=== PATIENT | male | born 1980 | race Caucasian/White ===

== ENCOUNTER 2023-08-22 19:09 | Inpatient (IN) | payer MEDICAID ==
[~2023-08-22] VITALS: Ht 177.8 cm; Wt 63.0 kg
[~2023-08-22 19:09] MED LIST: RISP1TAB13 PO; rocuronium 10mg/ml inj IV ONE
[2023-08-22] MEDS: propofol 1000mg/100ml bottle 100 ML IV ONE (19:26)
[2023-08-22 19:38] VITALS: BP 133/85; PULSE 132; RESP 16; O2SAT 98
[2023-08-22 20:32] LABS: BASOPHILS % (AUTO) 0.1 % (0-1); EOSINOPHILS % (AUTO) 0 % (0-6); HEMATOCRIT 40.8 % (42.0-52.0); HEMOGLOBIN 13.6 g/dl (14.0-17.9); LYMPHOCYTES # (AUTO) 0.6 X10'3 (1.1-4.8); MEAN CORPUSCULAR HEMOGLOBIN 30.7 PG (27.0-31.0); MEAN CORPUSCULAR HGB CONC 33.4 g/dL (33.0-36.5); MEAN CORPUSCULAR VOLUME 91.9 FL (78-98); MEAN PLATELET VOLUME 7.7 FL (7.4-10.4); MONOCYTES # (AUTO) 1.1 X10'3 (0-0.9); MONOCYTES % (AUTO) 5.5 % (2-12); NEUTROPHILS # (AUTO) 18.1 X10'3 (1.8-7.7); NEUTROPHILS % (AUTO) 91.4 % (42-75); PLATELET COUNT 315 X10'3 (140-440); RED BLOOD COUNT 4.44 X10'6 (4.70-6.10); RED CELL DISTRIBUTION WIDTH 14.1 % (11.5-14.5); WHITE BLOOD COUNT 19.8 X10'3 (4.5-11.0)
[2023-08-22 20:33] LABS: GASTRIC OCCULT BLOOD POSITIVE (Neg)
[2023-08-22 20:38] LABS: ABG BASE EXCESS 0.4 mmol/L (-2.0-2.0); ABG HCO3 29.3 mmol/L (22.0-26.0); ABG OXYGEN SATURATION 99.3 % (94-97); ABG PCO2 (T) 70.3 mmHg (35.0-48.0); ABG PH (T) 7.243 (7.340-7.440); ABG PO2 (T) 232.4 mmHg (75.0-100.0); ALLEN'S TEST Modified; FCOHb 2.3 % (0.0-3.9); FHHb 0.7 % (0.0-5.0); FMetHb 0.3 % (0.0-1.5); FO2Hb 96.7 % (94-97); MODE PRVC; PATIENT TEMPERATURE 38.1; PEEP 5 cm H2O; RESPIRATORY RATE 16 b/min; TIDAL VOLUME 450 mL; TOTAL HEMOGLOBIN 14.4 G/dl (14.0-17.9)
[2023-08-22] MEDS: LidoCAINE 2% Topical Jelly 11mL syringe (UROJET) TOP ONE ×2 (20:38→21:31)
[2023-08-22 20:43] VITALS: BP 112/79; PULSE 127; RESP 17; O2SAT 98
[2023-08-22] MEDS ORDERED: acetaminophen 325mg tablet PO PRN ×2 (20:45)
[2023-08-22] MEDS ORDERED: ondansetron/PF 4mg/2ml inj IV PRN (20:45)
[2023-08-22] MEDS: normal saline 1000ml 1,000 ML IV SCH (20:45)
[2023-08-22 20:53] LABS: ALBUMIN 2.3 G/DL (3.4-5.0); ANION GAP 4 (8-16); BLOOD UREA NITROGEN 18 MG/DL (7-18); BUN/CREATININE RATIO 16.5 (10.0-20.0); CALCIUM 8.2 MG/DL (8.5-10.1); CHLORIDE 92 MMOL/L (99-107); CREATININE 1.09 MG/DL (0.60-1.10); GLUCOSE 154 MG/DL (70-104); MAGNESIUM 1.8 MG/DL (1.5-2.4); POTASSIUM 5.2 MMOL/L (3.5-5.1); SODIUM 130 MMOL/L (135-145); TOTAL CARBON DIOXIDE 33.8 MMOL/L (24-32); eCRCL 73 ML/MIN; eGFR 73 ML/MIN
[2023-08-22] MEDS: pantoprazole 40MG/NS 100ML BAG 100 ML IV SCH (20:54)
[2023-08-22] MEDS: LIDOcaine 2% 10ml TOPICAL JELLY (Urojet) TP ONE (21:04)
[2023-08-22 21:12] LABS: PLATELET ESTIMATE NORMAL; TOTAL CELLS COUNTED 100
[2023-08-22] MEDS ORDERED: iohexol 300mg/ml 100ml inj. ONE (21:38)
[2023-08-22 21:49] LABS: BILIRUBIN,URINE NEGATIVE (Neg); CLARITY,URINE CLEAR (Clear); COLOR,URINE YELLOW (Yellow); GLUCOSE, URINE NEGATIVE (Neg); KETONES,URINE NEGATIVE (Neg); LEUKOCYTE ESTERASE ,URINE NEGATIVE (Neg); NITRITES, URINE NEGATIVE (Neg); OCCULT BLOOD,URINE TRACE-INTACT (Neg); PROTEIN,URINE 30 mg/dl (Neg)
[2023-08-22 21:57] LABS: URINE AMPHETAMINE SCREEN NEGATIVE (Neg); URINE BARBITUATE SCREEN NEGATIVE (Neg); URINE BENZODIAZEPINES SCREEN NEGATIVE (Neg); URINE CANNABINOID SCREEN NEGATIVE (Neg); URINE COCAINE SCREEN NEGATIVE (Neg); URINE METHADONE SCREEN NEGATIVE (Neg); URINE OPIATE SCREEN NEGATIVE (Neg); URINE PHENCYCLIDINE SCREEN NEGATIVE (Neg)
[2023-08-22 22:01] LABS: UA COLLECTION TYPE FOLEY CATH
[2023-08-22 22:03] LABS: FINE GRANULAR CAST 0-3 /LPF (NEGATIVE)
[2023-08-22 22:04] LABS: HYALINE CASTS 0-3 /LPF (NEGATIVE)
[2023-08-22 22:05] LABS: RBC,URINE 0-2 /HPF (0-2); WBC,URINE 0-4 /HPF (0-4)
[2023-08-22] MEDS: FENTANYL-0.9 % NACL/PF 100 ML IV SCH (22:05)
[2023-08-22 22:08] LABS: BACTERIA,URINE NONE SEEN /HPF (Neg)
[2023-08-22 22:09] LABS: MUCUS STRANDS NONE SEEN /LPF (Neg); SQUAMOUS EPITHELIAL CELL,UR FEW /LPF (FEW); TRANSITIONAL EPI CELLS,URINE FEW /HPF
[2023-08-22] MEDS: pantoprazole 40 MG vial IV SCH (22:12)
[2023-08-22] MEDS: fentaNYL/PF 50MCG/1 ML 2ML syringe ONE (22:13)
[2023-08-22 23:28] VITALS: BP 120/83; PULSE 116; RESP 21; O2SAT 100
[2023-08-23] VITALS (35 sets, daily range): BP systolic 71–127; BP diastolic 41–87; PULSE 74–112; RESP 17–22; O2SAT 89–98
[2023-08-23] MEDS: fentaNYL/PF 50MCG/1 ML 2ML syringe ONE (03:52)
[2023-08-23] MEDS ORDERED: ondansetron/PF 4mg/2ml inj IV PRN (04:30)
[2023-08-23] MEDS ORDERED: acetaminophen 325mg tablet PO PRN ×2 (04:30)
[2023-08-23] MEDS ORDERED: ipratropium/albuterol 3ml nebule NEB PRN (04:30)
[2023-08-23] MEDS: NORepinephrine 8mg/ 250ml NS 250 ML IV ONE (04:32)
[2023-08-23 04:58] LABS: OXYGEN SATURATION (MIXED VEN) 80.1 % (60-80)
[2023-08-23] MEDS: LidoCAINE 2% Topical Jelly 11mL syringe (UROJET) TOP ONE (04:58)
[2023-08-23 05:12] LABS: ABG BASE EXCESS 0.4 mmol/L (-2.0-2.0); ABG HCO3 28.7 mmol/L (22.0-26.0); ABG OXYGEN SATURATION 92.3 % (94-97); ABG PCO2 (T) 63.1 mmHg (35.0-48.0); ABG PH (T) 7.274 (7.340-7.440); ABG PO2 (T) 68.8 mmHg (75.0-100.0); ALLEN'S TEST Modified; FCOHb 1.1 % (0.0-3.9); FHHb 7.6 % (0.0-5.0); FMetHb 0.3 % (0.0-1.5); MODE CMV VC; PATIENT TEMPERATURE 36.7; PEEP 5 cm H2O; RESPIRATORY RATE 18 b/min; TIDAL VOLUME 400 mL; TOTAL HEMOGLOBIN 12.8 G/dl (14.0-17.9)
[2023-08-23 05:42] LABS: BASOPHILS % (AUTO) 0.1 % (0-1); EOSINOPHILS % (AUTO) 0 % (0-6); HEMATOCRIT 34.9 % (42.0-52.0); HEMOGLOBIN 11.5 g/dl (14.0-17.9); LYMPHOCYTES # (AUTO) 0.5 X10'3 (1.1-4.8); LYMPHOCYTES % (AUTO) 2.6 % (21-51); MEAN CORPUSCULAR HEMOGLOBIN 30.5 PG (27.0-31.0); MEAN CORPUSCULAR HGB CONC 32.9 g/dL (33.0-36.5); MEAN CORPUSCULAR VOLUME 92.9 FL (78-98); MONOCYTES # (AUTO) 0.7 X10'3 (0-0.9); MONOCYTES % (AUTO) 3.6 % (2-12); NEUTROPHILS # (AUTO) 18.3 X10'3 (1.8-7.7); NEUTROPHILS % (AUTO) 93.7 % (42-75); PLATELET COUNT 297 X10'3 (140-440); RED BLOOD COUNT 3.75 X10'6 (4.70-6.10); RED CELL DISTRIBUTION WIDTH 14.4 % (11.5-14.5); WHITE BLOOD COUNT 19.5 X10'3 (4.5-11.0)
[2023-08-23] MEDS: ringers solution, lacted 1,000 ML IV ONE (05:48)
[2023-08-23] MEDS: NORepinephrine 8mg/ 250ml NS 250 ML IV SCH (05:49)
[2023-08-23 05:51] LABS: ALBUMIN 1.8 G/DL (3.4-5.0); ANION GAP 4 (8-16); BLOOD UREA NITROGEN 16 MG/DL (7-18); CHLORIDE 101 MMOL/L (99-107); CREATININE 0.84 MG/DL (0.60-1.10); GLUCOSE 103 MG/DL (70-104); POTASSIUM 4.7 MMOL/L (3.5-5.1); SODIUM 136 MMOL/L (135-145); TOTAL CARBON DIOXIDE 31.1 MMOL/L (24-32); eCRCL 94 ML/MIN; eGFR > 90 ML/MIN
[2023-08-23 06:16] LABS: MAGNESIUM 1.8 MG/DL (1.5-2.4); PHOSPHORUS 3.6 MG/DL (2.3-4.5)
[2023-08-23 07:03] LABS: TOTAL CELLS COUNTED 100
[2023-08-23 07:04] LABS: BURR CELLS FEW; PLATELET ESTIMATE NORMAL; POLYCHROMASIA FEW; TOXIC GRANULATION 1+
[2023-08-23] MEDS ORDERED: RISP-31 PO (07:42)
[2023-08-23] MEDS ORDERED: ESCI20TA39 PO (07:42)
[2023-08-23] MEDS ORDERED: BUPR-297 PO ×2 (07:42→13:01)
[2023-08-23] MEDS ORDERED: TRAZ-251 PO (07:42)
[2023-08-23] MEDS ORDERED: BENZ1TAB78 PO (07:42)
[2023-08-23] MEDS: heparin, porcine 5000 units/ml vial SQ SCH (07:59)
[2023-08-23] MEDS ORDERED: ESCI20TA PO (13:01)
[2023-08-23] MEDS ORDERED: BENZ1TAB93 PO (13:01)
[2023-08-23] MEDS: levoFLOXACIN-Levaquin 750MG/D5 150 ML IV STA (15:54)
[2023-08-23] MEDS: propofol 1000mg/100ml bottle 100 ML IV SCH (19:05)
[2023-08-24] VITALS (37 sets, daily range): BP systolic 86–131; BP diastolic 51–73; PULSE 8–89; RESP 18–22; O2SAT 90–97
[2023-08-24 02:37] LABS: BASOPHILS # (AUTO) 0.1 X10'3 (0-0.2); BASOPHILS % (AUTO) 0.3 % (0-1); EOSINOPHILS % (AUTO) 0.1 % (0-6); HEMATOCRIT 32.8 % (42.0-52.0); HEMOGLOBIN 10.8 g/dl (14.0-17.9); LYMPHOCYTES # (AUTO) 0.8 X10'3 (1.1-4.8); LYMPHOCYTES % (AUTO) 3.6 % (21-51); MEAN CORPUSCULAR HEMOGLOBIN 30.7 PG (27.0-31.0); MEAN CORPUSCULAR VOLUME 93.2 FL (78-98); MEAN PLATELET VOLUME 7.3 FL (7.4-10.4); MONOCYTES # (AUTO) 0.8 X10'3 (0-0.9); MONOCYTES % (AUTO) 3.9 % (2-12); NEUTROPHILS # (AUTO) 19.1 X10'3 (1.8-7.7); NEUTROPHILS % (AUTO) 92.1 % (42-75); PLATELET COUNT 269 X10'3 (140-440); RED BLOOD COUNT 3.52 X10'6 (4.70-6.10); RED CELL DISTRIBUTION WIDTH 14.7 % (11.5-14.5); WHITE BLOOD COUNT 20.7 X10'3 (4.5-11.0)
[2023-08-24 02:51] LABS: ALBUMIN 1.5 G/DL (3.4-5.0); ANION GAP 5 (8-16); BLOOD UREA NITROGEN 15 MG/DL (7-18); BUN/CREATININE RATIO 18.3 (10.0-20.0); CALCIUM 7.6 MG/DL (8.5-10.1); CHLORIDE 104 MMOL/L (99-107); CREATININE 0.82 MG/DL (0.60-1.10); GLUCOSE 99 MG/DL (70-104); PHOSPHORUS 2.5 MG/DL (2.3-4.5); POTASSIUM 4.9 MMOL/L (3.5-5.1); SODIUM 138 MMOL/L (135-145); TOTAL CARBON DIOXIDE 28.8 MMOL/L (24-32); TRIGLYCERIDES 64 MG/DL (20-135); eCRCL 79 ML/MIN; eGFR > 90 ML/MIN
[2023-08-24 03:26] LABS: ABG BASE EXCESS 1.1 mmol/L (-2.0-2.0); ABG HCO3 27.9 mmol/L (22.0-26.0); ABG OXYGEN SATURATION 96.4 % (94-97); ABG PCO2 (T) 55.9 mmHg (35.0-48.0); ABG PH (T) 7.319 (7.340-7.440); ALLEN'S TEST Modified; FCOHb 0.7 % (0.0-3.9); FHHb 3.6 % (0.0-5.0); FMetHb 0.3 % (0.0-1.5); FO2Hb 95.4 % (94-97); MODE VENT - AC; PATIENT TEMPERATURE 37.5; PEEP 8 cm H2O; RESPIRATORY RATE 18 b/min; TIDAL VOLUME 500 mL; TOTAL HEMOGLOBIN 12.2 G/dl (14.0-17.9)
[2023-08-24] MEDS: levoFLOXACIN-Levaquin 750MG/D5 150 ML IV SCH (07:35)
[2023-08-24] MEDS: CefTRIAXone/D5W-Rocephin 1gm 50 ML IV SCH (07:35)
[2023-08-25] VITALS (38 sets, daily range): BP systolic 85–123; BP diastolic 55–92; PULSE 65–96; RESP 12–24; O2SAT 90–97
[2023-08-25 02:47] LABS: BASOPHILS # (AUTO) 0.2 X10'3 (0-0.2); BASOPHILS % (AUTO) 0.9 % (0-1); EOSINOPHILS % (AUTO) 0.2 % (0-6); HEMOGLOBIN 10.4 g/dl (14.0-17.9); LYMPHOCYTES # (AUTO) 0.7 X10'3 (1.1-4.8); LYMPHOCYTES % (AUTO) 3.7 % (21-51); MEAN CORPUSCULAR HEMOGLOBIN 30.4 PG (27.0-31.0); MEAN CORPUSCULAR HGB CONC 32.5 g/dL (33.0-36.5); MEAN CORPUSCULAR VOLUME 93.4 FL (78-98); MEAN PLATELET VOLUME 7.8 FL (7.4-10.4); MONOCYTES # (AUTO) 0.8 X10'3 (0-0.9); MONOCYTES % (AUTO) 4.2 % (2-12); NEUTROPHILS # (AUTO) 17.5 X10'3 (1.8-7.7); PLATELET COUNT 271 X10'3 (140-440); RED BLOOD COUNT 3.42 X10'6 (4.70-6.10); RED CELL DISTRIBUTION WIDTH 14.9 % (11.5-14.5); WHITE BLOOD COUNT 19.3 X10'3 (4.5-11.0)
[2023-08-25 02:55] LABS: ALBUMIN 1.4 G/DL (3.4-5.0); ANION GAP 5 (8-16); BLOOD UREA NITROGEN 16 MG/DL (7-18); BUN/CREATININE RATIO 22.2 (10.0-20.0); CALCIUM 7.8 MG/DL (8.5-10.1); CHLORIDE 107 MMOL/L (99-107); CREATININE 0.72 MG/DL (0.60-1.10); GLUCOSE 93 MG/DL (70-104); POTASSIUM 4.6 MMOL/L (3.5-5.1); SODIUM 142 MMOL/L (135-145); TOTAL CARBON DIOXIDE 29.9 MMOL/L (24-32); eCRCL 90 ML/MIN; eGFR > 90 ML/MIN
[2023-08-25 03:16] LABS: ABG BASE EXCESS -2.1 mmol/L (-2.0-2.0); ABG HCO3 23.5 mmol/L (22.0-26.0); ABG OXYGEN SATURATION 95.2 % (94-97); ABG PCO2 (T) 44.5 mmHg (35.0-48.0); ABG PH (T) 7.343 (7.340-7.440); ALLEN'S TEST Modified; FCOHb 0.6 % (0.0-3.9); FHHb 4.8 % (0.0-5.0); FMetHb 0.3 % (0.0-1.5); FO2Hb 94.3 % (94-97); MODE VENT - AC; PATIENT TEMPERATURE 37.4; PEEP 5 cm H2O; RESPIRATORY RATE 20 b/min; TIDAL VOLUME 500 mL; TOTAL HEMOGLOBIN 11.5 G/dl (14.0-17.9)
[2023-08-25] MEDS ORDERED: acetaminophen 325mg/10.15ml oral unit dose solution OGT PRN ×2 (12:37→12:38)
[2023-08-25 13:52] LABS: PREALBUMIN 2.5 MG/DL (19-36)
[2023-08-25] MEDS: ipratropium/albuterol 3ml nebule NEB SCH (19:35)
[2023-08-25] MEDS: docusate sodium 100mg/10ml UD cup OGT SCH (20:43)
[2023-08-25] MEDS: pantoprazole 40 MG vial IV SCH (20:43)
[2023-08-26] VITALS (48 sets, daily range): BP systolic 87–138; BP diastolic 52–85; PULSE 67–93; RESP 12–25; O2SAT 90–99
[2023-08-26 02:33] LABS: BASOPHILS % (AUTO) 0.2 % (0-1); EOSINOPHILS # (AUTO) 0.1 X10'3 (0-0.9); EOSINOPHILS % (AUTO) 0.7 % (0-6); HEMATOCRIT 30.5 % (42.0-52.0); HEMOGLOBIN 10.1 g/dl (14.0-17.9); LYMPHOCYTES % (AUTO) 9.1 % (21-51); MEAN CORPUSCULAR HEMOGLOBIN 30.9 PG (27.0-31.0); MEAN CORPUSCULAR VOLUME 93.5 FL (78-98); MEAN PLATELET VOLUME 7.5 FL (7.4-10.4); MONOCYTES # (AUTO) 0.9 X10'3 (0-0.9); MONOCYTES % (AUTO) 7.9 % (2-12); NEUTROPHILS # (AUTO) 9.3 X10'3 (1.8-7.7); NEUTROPHILS % (AUTO) 82.1 % (42-75); PLATELET COUNT 254 X10'3 (140-440); RED BLOOD COUNT 3.26 X10'6 (4.70-6.10); WHITE BLOOD COUNT 11.4 X10'3 (4.5-11.0)
[2023-08-26 02:46] LABS: ALANINE AMINOTRANSFERASE 12 U/L (12-78); ALBUMIN 1.4 G/DL (3.4-5.0); ALBUMIN/GLOBULIN RATIO 0.3 (1.1-1.5); ALKALINE PHOSPHATASE 126 IU/L (46-116); ANION GAP 4 (8-16); ASPARTATE AMINO TRANSFERASE 14 U/L (10-37); BILIRUBIN,TOTAL 0.2 MG/DL (0.1-1.0); BLOOD UREA NITROGEN 15 MG/DL (7-18); BUN/CREATININE RATIO 20.8 (10.0-20.0); CALCIUM 7.8 MG/DL (8.5-10.1); CHLORIDE 111 MMOL/L (99-107); CREATININE 0.72 MG/DL (0.60-1.10); GLUCOSE 137 MG/DL (70-104); MAGNESIUM 2.1 MG/DL (1.5-2.4); PHOSPHORUS 2.4 MG/DL (2.3-4.5); POTASSIUM 4.1 MMOL/L (3.5-5.1); SODIUM 145 MMOL/L (135-145); TOTAL CARBON DIOXIDE 30.4 MMOL/L (24-32); TOTAL PROTEIN 5.5 G/DL (6.4-8.2); eCRCL 123 ML/MIN; eGFR > 90 ML/MIN
[2023-08-26] MEDS: acetylcysteine 200 MG/ml 4ml vial INH SCH (03:00)
[2023-08-26 03:31] LABS: ABG BASE EXCESS 1.8 mmol/L (-2.0-2.0); ABG HCO3 28.1 mmol/L (22.0-26.0); ABG PCO2 (T) 52.9 mmHg (35.0-48.0); ABG PH (T) 7.345 (7.340-7.440); ABG PO2 (T) 64.5 mmHg (75.0-100.0); ALLEN'S TEST Modified; FCOHb 0.5 % (0.0-3.9); FHHb 7.9 % (0.0-5.0); FMetHb 0.3 % (0.0-1.5); FO2Hb 91.3 % (94-97); MODE VENT - AC; PATIENT TEMPERATURE 37.2; PEEP 5 cm H2O; RESPIRATORY RATE 20 b/min; TIDAL VOLUME 500 mL
[2023-08-26] MEDS: albuterol 2.5 MG/3 ML nebule NEB SCH (23:32)
[2023-08-27] VITALS (48 sets, daily range): BP systolic 110–145; BP diastolic 71–92; PULSE 79–98; RESP 11–28; O2SAT 91–97
[2023-08-27 02:23] LABS: BASOPHILS % (AUTO) 0.2 % (0-1); EOSINOPHILS # (AUTO) 0.1 X10'3 (0-0.9); EOSINOPHILS % (AUTO) 1.2 % (0-6); HEMATOCRIT 29.9 % (42.0-52.0); HEMOGLOBIN 9.8 g/dl (14.0-17.9); LYMPHOCYTES # (AUTO) 0.9 X10'3 (1.1-4.8); LYMPHOCYTES % (AUTO) 8.6 % (21-51); MEAN CORPUSCULAR HEMOGLOBIN 30.5 PG (27.0-31.0); MEAN CORPUSCULAR HGB CONC 32.8 g/dL (33.0-36.5); MEAN CORPUSCULAR VOLUME 92.9 FL (78-98); MONOCYTES % (AUTO) 9.2 % (2-12); NEUTROPHILS # (AUTO) 8.8 X10'3 (1.8-7.7); NEUTROPHILS % (AUTO) 80.8 % (42-75); PLATELET COUNT 229 X10'3 (140-440); RED BLOOD COUNT 3.22 X10'6 (4.70-6.10); RED CELL DISTRIBUTION WIDTH 15.2 % (11.5-14.5); WHITE BLOOD COUNT 10.9 X10'3 (4.5-11.0)
[2023-08-27 02:34] LABS: ALANINE AMINOTRANSFERASE 11 U/L (12-78); ALBUMIN 1.2 G/DL (3.4-5.0); ALBUMIN/GLOBULIN RATIO 0.3 (1.1-1.5); ALKALINE PHOSPHATASE 56 IU/L (46-116); ANION GAP 6 (8-16); ASPARTATE AMINO TRANSFERASE 14 U/L (10-37); BILIRUBIN,TOTAL 0.2 MG/DL (0.1-1.0); BLOOD UREA NITROGEN 13 MG/DL (7-18); BUN/CREATININE RATIO 21.7 (10.0-20.0); CALCIUM 7.8 MG/DL (8.5-10.1); CHLORIDE 112 MMOL/L (99-107); GLUCOSE 130 MG/DL (70-104); MAGNESIUM 1.8 MG/DL (1.5-2.4); PHOSPHORUS 2.9 MG/DL (2.3-4.5); POTASSIUM 3.8 MMOL/L (3.5-5.1); SODIUM 149 MMOL/L (135-145); TOTAL CARBON DIOXIDE 31.3 MMOL/L (24-32); TOTAL PROTEIN 5.4 G/DL (6.4-8.2); eCRCL 154 ML/MIN; eGFR > 90 ML/MIN
[2023-08-27 03:27] LABS: ABG BASE EXCESS 4.3 mmol/L (-2.0-2.0); ABG HCO3 29.9 mmol/L (22.0-26.0); ABG OXYGEN SATURATION 93.8 % (94-97); ABG PCO2 (T) 50.7 mmHg (35.0-48.0); ABG PH (T) 7.391 (7.340-7.440); ABG PO2 (T) 69.2 mmHg (75.0-100.0); ALLEN'S TEST Modified; FCOHb 0.5 % (0.0-3.9); FHHb 6.2 % (0.0-5.0); FMetHb 0.3 % (0.0-1.5); MODE VENT - AC; PATIENT TEMPERATURE 37.7; PEEP 5 cm H2O; RESPIRATORY RATE 20 b/min; TIDAL VOLUME 500 mL; TOTAL HEMOGLOBIN 10.7 G/dl (14.0-17.9)
[2023-08-27] MEDS: acetylcysteine 200 MG/ml 4ml vial INH SCH (07:30)
[2023-08-27] MEDS ORDERED: albuterol 2.5 MG/3 ML nebule NEB SCH ×2 (23:00→23:11)
[2023-08-28] VITALS (41 sets, daily range): BP systolic 101–174; BP diastolic 62–102; PULSE 72–106; RESP 14–34; O2SAT 88–98
[2023-08-28 01:41] LABS: BASOPHILS % (AUTO) 0.3 % (0-1); EOSINOPHILS # (AUTO) 0.2 X10'3 (0-0.9); EOSINOPHILS % (AUTO) 1.7 % (0-6); HEMATOCRIT 29.1 % (42.0-52.0); HEMOGLOBIN 9.8 g/dl (14.0-17.9); LYMPHOCYTES # (AUTO) 1.2 X10'3 (1.1-4.8); LYMPHOCYTES % (AUTO) 12.2 % (21-51); MEAN CORPUSCULAR HEMOGLOBIN 31.1 PG (27.0-31.0); MEAN CORPUSCULAR HGB CONC 33.5 g/dL (33.0-36.5); MEAN CORPUSCULAR VOLUME 92.6 FL (78-98); MEAN PLATELET VOLUME 7.7 FL (7.4-10.4); MONOCYTES # (AUTO) 0.6 X10'3 (0-0.9); MONOCYTES % (AUTO) 6.3 % (2-12); NEUTROPHILS # (AUTO) 7.8 X10'3 (1.8-7.7); NEUTROPHILS % (AUTO) 79.5 % (42-75); PLATELET COUNT 234 X10'3 (140-440); RED BLOOD COUNT 3.15 X10'6 (4.70-6.10); RED CELL DISTRIBUTION WIDTH 15.2 % (11.5-14.5); WHITE BLOOD COUNT 9.8 X10'3 (4.5-11.0)
[2023-08-28 01:57] LABS: ALANINE AMINOTRANSFERASE 10 U/L (12-78); ALBUMIN 1.2 G/DL (3.4-5.0); ALBUMIN/GLOBULIN RATIO 0.3 (1.1-1.5); ALKALINE PHOSPHATASE 52 IU/L (46-116); ANION GAP -3 (8-16); ASPARTATE AMINO TRANSFERASE 15 U/L (10-37); BILIRUBIN,TOTAL 0.3 MG/DL (0.1-1.0); BLOOD UREA NITROGEN 14 MG/DL (7-18); BUN/CREATININE RATIO 27.5 (10.0-20.0); CALCIUM 7.7 MG/DL (8.5-10.1); CHLORIDE 111 MMOL/L (99-107); CREATININE 0.51 MG/DL (0.60-1.10); GLUCOSE 118 MG/DL (70-104); MAGNESIUM 1.7 MG/DL (1.5-2.4); PHOSPHORUS 4.1 MG/DL (2.3-4.5); POTASSIUM 3.7 MMOL/L (3.5-5.1); PREALBUMIN 5.2 MG/DL (19-36); SODIUM 148 MMOL/L (135-145); TOTAL CARBON DIOXIDE 39.5 MMOL/L (24-32); TOTAL PROTEIN 5.2 G/DL (6.4-8.2); eCRCL 180 ML/MIN; eGFR > 90 ML/MIN
[2023-08-28 03:54] LABS: ABG BASE EXCESS 5.9 mmol/L (-2.0-2.0); ABG OXYGEN SATURATION 92.6 % (94-97); ABG PCO2 (T) 55.9 mmHg (35.0-48.0); ABG PH (T) 7.378 (7.340-7.440); ABG PO2 (T) 64.6 mmHg (75.0-100.0); ALLEN'S TEST Modified; FCOHb 0.6 % (0.0-3.9); FHHb 7.3 % (0.0-5.0); FMetHb 0.3 % (0.0-1.5); FO2Hb 91.8 % (94-97); MODE AC/VC; PATIENT TEMPERATURE 37.4; PEEP 5 cm H2O; RESPIRATORY RATE 20 b/min; TIDAL VOLUME 500 mL; TOTAL HEMOGLOBIN 10.3 G/dl (14.0-17.9)
[2023-08-28] MEDS ORDERED: traZODone 50mg tablet PO PRN (17:25)
[2023-08-28] MEDS: risperiDONE 0.5mg tablet PO SCH (21:42)
[2023-08-29] VITALS (36 sets, daily range): BP systolic 130–183; BP diastolic 81–102; PULSE 80–108; RESP 16–33; O2SAT 88–98
[2023-08-29 02:32] LABS: BASOPHILS # (AUTO) 0.1 X10'3 (0-0.2); BASOPHILS % (AUTO) 0.7 % (0-1); EOSINOPHILS # (AUTO) 0.1 X10'3 (0-0.9); EOSINOPHILS % (AUTO) 0.8 % (0-6); HEMATOCRIT 33.3 % (42.0-52.0); HEMOGLOBIN 10.9 g/dl (14.0-17.9); LYMPHOCYTES # (AUTO) 1.4 X10'3 (1.1-4.8); LYMPHOCYTES % (AUTO) 13.2 % (21-51); MEAN CORPUSCULAR HEMOGLOBIN 30.3 PG (27.0-31.0); MEAN CORPUSCULAR HGB CONC 32.7 g/dL (33.0-36.5); MEAN CORPUSCULAR VOLUME 92.7 FL (78-98); MEAN PLATELET VOLUME 8.2 FL (7.4-10.4); MONOCYTES # (AUTO) 0.7 X10'3 (0-0.9); MONOCYTES % (AUTO) 6.5 % (2-12); NEUTROPHILS # (AUTO) 8.4 X10'3 (1.8-7.7); NEUTROPHILS % (AUTO) 78.8 % (42-75); PLATELET COUNT 317 X10'3 (140-440); RED BLOOD COUNT 3.59 X10'6 (4.70-6.10); RED CELL DISTRIBUTION WIDTH 14.9 % (11.5-14.5); WHITE BLOOD COUNT 10.7 X10'3 (4.5-11.0)
[2023-08-29 02:48] LABS: ALANINE AMINOTRANSFERASE 16 U/L (12-78); ALBUMIN 1.5 G/DL (3.4-5.0); ALBUMIN/GLOBULIN RATIO 0.3 (1.1-1.5); ALKALINE PHOSPHATASE 79 IU/L (46-116); ANION GAP 4 (8-16); ASPARTATE AMINO TRANSFERASE 33 U/L (10-37); BILIRUBIN,TOTAL 0.5 MG/DL (0.1-1.0); BLOOD UREA NITROGEN 12 MG/DL (7-18); BUN/CREATININE RATIO 20.7 (10.0-20.0); CALCIUM 8.6 MG/DL (8.5-10.1); CHLORIDE 104 MMOL/L (99-107); CREATININE 0.58 MG/DL (0.60-1.10); GLUCOSE 89 MG/DL (70-104); MAGNESIUM 1.9 MG/DL (1.5-2.4); PHOSPHORUS 4.6 MG/DL (2.3-4.5); POTASSIUM 3.9 MMOL/L (3.5-5.1); SODIUM 146 MMOL/L (135-145); TOTAL CARBON DIOXIDE 38.3 MMOL/L (24-32); TOTAL PROTEIN 6.2 G/DL (6.4-8.2); eCRCL 159 ML/MIN; eGFR > 90 ML/MIN
[2023-08-29] MEDS: buPROPion 75mg tablet PO SCH (07:07)
[2023-08-29] MEDS: acetaminophen 325mg tablet PO PRN (07:08)
[2023-08-29] MEDS: benztropine 1mg tablet PO SCH (07:08)
[2023-08-29] MEDS: ESCITALOPRAM 10 mg tablet 10 MG TABLET PO SCH (07:09)
[2023-08-29] MEDS: magnesium hydroxide 30ml (MOM) UD suspension OGT PRN (07:21)
[2023-08-29] MEDS ORDERED: acetaminophen 325mg/10.15ml oral unit dose solution CORPAK PRN ×3 (10:59→15:24)
[2023-08-29] MEDS ORDERED: magnesium hydroxide 30ml (MOM) UD suspension CORPAK PRN (10:59)
[2023-08-29] MEDS: sodium chloride 0.45% 1,000 ML IV SCH (12:14)
[2023-08-29] MEDS: risperiDONE 0.5mg tablet CORPAK SCH (17:41)
[2023-08-29] MEDS: sennosides 8.6mg tablet CORPAK SCH (21:00)
[2023-08-29] MEDS: docusate sodium 100mg/10ml UD cup CORPAK SCH (21:03)
[2023-08-30] VITALS (33 sets, daily range): BP systolic 112–151; BP diastolic 74–103; PULSE 92–117; RESP 14–25; TEMP 98.4–98.6; O2SAT 83–97
[2023-08-30] MEDS: ESCITALOPRAM 10 mg tablet 10 MG TABLET CORPAK SCH (08:21)
[2023-08-30] MEDS: benztropine 1mg tablet CORPAK SCH (08:22)
[2023-08-30] MEDS: buPROPion 75mg tablet CORPAK SCH (08:22)
[2023-08-30] MEDS: traZODone 50mg tablet CORPAK PRN (20:07)
[2023-08-31] VITALS (19 sets, daily range): BP systolic 113–136; BP diastolic 71–86; PULSE 88–115; RESP 14–22; TEMP 97.5–99.8; O2SAT 92–97
[2023-08-31 06:49] LABS: BASOPHILS # (AUTO) 0.1 X10'3 (0-0.2); BASOPHILS % (AUTO) 0.7 % (0-1); EOSINOPHILS # (AUTO) 0.3 X10'3 (0-0.9); EOSINOPHILS % (AUTO) 3.5 % (0-6); HEMATOCRIT 33.9 % (42.0-52.0); HEMOGLOBIN 11.3 g/dl (14.0-17.9); LYMPHOCYTES # (AUTO) 1.4 X10'3 (1.1-4.8); LYMPHOCYTES % (AUTO) 17.2 % (21-51); MEAN CORPUSCULAR HEMOGLOBIN 30.8 PG (27.0-31.0); MEAN CORPUSCULAR HGB CONC 33.2 g/dL (33.0-36.5); MEAN CORPUSCULAR VOLUME 92.8 FL (78-98); MEAN PLATELET VOLUME 9.3 FL (7.4-10.4); MONOCYTES # (AUTO) 0.3 X10'3 (0-0.9); NEUTROPHILS # (AUTO) 6.3 X10'3 (1.8-7.7); NEUTROPHILS % (AUTO) 74.6 % (42-75); PLATELET COUNT 261 X10'3 (140-440); RED BLOOD COUNT 3.66 X10'6 (4.70-6.10); RED CELL DISTRIBUTION WIDTH 14.8 % (11.5-14.5); WHITE BLOOD COUNT 8.4 X10'3 (4.5-11.0)
[2023-08-31 07:07] LABS: ALANINE AMINOTRANSFERASE 21 U/L (12-78); ALBUMIN 1.5 G/DL (3.4-5.0); ALBUMIN/GLOBULIN RATIO 0.3 (1.1-1.5); ALKALINE PHOSPHATASE 58 IU/L (46-116); ANION GAP 0 (8-16); ASPARTATE AMINO TRANSFERASE 34 U/L (10-37); BILIRUBIN,TOTAL 0.3 MG/DL (0.1-1.0); BLOOD UREA NITROGEN 20 MG/DL (7-18); BUN/CREATININE RATIO 35.7 (10.0-20.0); CALCIUM 8.4 MG/DL (8.5-10.1); CHLORIDE 105 MMOL/L (99-107); CREATININE 0.56 MG/DL (0.60-1.10); GLUCOSE 109 MG/DL (70-104); MAGNESIUM 2.2 MG/DL (1.5-2.4); PHOSPHORUS 4.2 MG/DL (2.3-4.5); POTASSIUM 3.9 MMOL/L (3.5-5.1); SODIUM 143 MMOL/L (135-145); TOTAL CARBON DIOXIDE 38.1 MMOL/L (24-32); TOTAL PROTEIN 6.4 G/DL (6.4-8.2); TRIGLYCERIDES 73 MG/DL (20-135); eCRCL 148 ML/MIN; eGFR > 90 ML/MIN
[2023-08-31 09:09] LABS: PLATELET ESTIMATE NORMAL; TOTAL CELLS COUNTED 100
[2023-08-31] MEDS ORDERED: albuterol 2.5 MG/3 ML nebule NEB PRN (17:05)
[2023-08-31] MEDS: methylPREDNISolone sod succ 125mg/2ml vial IV ONE (17:25)
[2023-08-31] MEDS: ipratropium/albuterol 3ml nebule NEB SCH (19:51)
[2023-08-31] MEDS: budesonide 0.5mg/2ml UD nebule IH SCH (19:51)
[2023-09-01] VITALS (19 sets, daily range): BP systolic 81–126; BP diastolic 48–78; PULSE 76–101; RESP 13–22; TEMP 97.1–98.7; O2SAT 92–98
[2023-09-01 06:42] LABS: BASOPHILS % (AUTO) 0.2 % (0-1); EOSINOPHILS % (AUTO) 0.1 % (0-6); HEMATOCRIT 34.6 % (42.0-52.0); HEMOGLOBIN 11.2 g/dl (14.0-17.9); LYMPHOCYTES # (AUTO) 1.3 X10'3 (1.1-4.8); LYMPHOCYTES % (AUTO) 11.2 % (21-51); MEAN CORPUSCULAR HEMOGLOBIN 30.2 PG (27.0-31.0); MEAN CORPUSCULAR HGB CONC 32.5 g/dL (33.0-36.5); MEAN CORPUSCULAR VOLUME 92.8 FL (78-98); MEAN PLATELET VOLUME 8.3 FL (7.4-10.4); MONOCYTES # (AUTO) 0.4 X10'3 (0-0.9); MONOCYTES % (AUTO) 3.6 % (2-12); NEUTROPHILS # (AUTO) 9.6 X10'3 (1.8-7.7); NEUTROPHILS % (AUTO) 84.9 % (42-75); PLATELET COUNT 415 X10'3 (140-440); RED BLOOD COUNT 3.73 X10'6 (4.70-6.10); RED CELL DISTRIBUTION WIDTH 14.8 % (11.5-14.5); WHITE BLOOD COUNT 11.3 X10'3 (4.5-11.0)
[2023-09-01 07:02] LABS: ALANINE AMINOTRANSFERASE 32 U/L (12-78); ALBUMIN/GLOBULIN RATIO 0.4 (1.1-1.5); ALKALINE PHOSPHATASE 65 IU/L (46-116); ANION GAP 4 (8-16); ASPARTATE AMINO TRANSFERASE 44 U/L (10-37); BILIRUBIN,TOTAL 0.2 MG/DL (0.1-1.0); BLOOD UREA NITROGEN 22 MG/DL (7-18); BUN/CREATININE RATIO 34.9 (10.0-20.0); CALCIUM 8.6 MG/DL (8.5-10.1); CHLORIDE 103 MMOL/L (99-107); CREATININE 0.63 MG/DL (0.60-1.10); GLUCOSE 123 MG/DL (70-104); MAGNESIUM 2.3 MG/DL (1.5-2.4); PHOSPHORUS 4.5 MG/DL (2.3-4.5); POTASSIUM 4.1 MMOL/L (3.5-5.1); PREALBUMIN 14.1 MG/DL (19-36); SODIUM 144 MMOL/L (135-145); TOTAL CARBON DIOXIDE 37.5 MMOL/L (24-32); TOTAL PROTEIN 6.8 G/DL (6.4-8.2); eCRCL 132 ML/MIN; eGFR > 90 ML/MIN
[2023-09-01] MEDS: methylPREDNISolone sod succ 125mg/2ml vial IV SCH (21:00)
[2023-09-02] VITALS (15 sets, daily range): BP systolic 93–129; BP diastolic 53–82; PULSE 66–94; RESP 13–22; TEMP 97.9–99; O2SAT 93–99
[2023-09-02 07:08] LABS: BASOPHILS % (AUTO) 0.3 % (0-1); EOSINOPHILS # (AUTO) 0.1 X10'3 (0-0.9); EOSINOPHILS % (AUTO) 1.5 % (0-6); HEMATOCRIT 33.9 % (42.0-52.0); HEMOGLOBIN 11.1 g/dl (14.0-17.9); LYMPHOCYTES # (AUTO) 1.8 X10'3 (1.1-4.8); LYMPHOCYTES % (AUTO) 18.9 % (21-51); MEAN CORPUSCULAR HEMOGLOBIN 30.5 PG (27.0-31.0); MEAN CORPUSCULAR HGB CONC 32.6 g/dL (33.0-36.5); MEAN CORPUSCULAR VOLUME 93.6 FL (78-98); MEAN PLATELET VOLUME 8.4 FL (7.4-10.4); MONOCYTES # (AUTO) 0.6 X10'3 (0-0.9); MONOCYTES % (AUTO) 6.5 % (2-12); NEUTROPHILS # (AUTO) 7.1 X10'3 (1.8-7.7); NEUTROPHILS % (AUTO) 72.8 % (42-75); PLATELET COUNT 457 X10'3 (140-440); RED BLOOD COUNT 3.63 X10'6 (4.70-6.10); RED CELL DISTRIBUTION WIDTH 15.2 % (11.5-14.5); WHITE BLOOD COUNT 9.7 X10'3 (4.5-11.0)
[2023-09-02 07:31] LABS: ALANINE AMINOTRANSFERASE 43 U/L (12-78); ALBUMIN 1.9 G/DL (3.4-5.0); ALBUMIN/GLOBULIN RATIO 0.4 (1.1-1.5); ALKALINE PHOSPHATASE 59 IU/L (46-116); ANION GAP -1 (8-16); ASPARTATE AMINO TRANSFERASE 51 U/L (10-37); BILIRUBIN,TOTAL 0.3 MG/DL (0.1-1.0); BLOOD UREA NITROGEN 24 MG/DL (7-18); BUN/CREATININE RATIO 36.9 (10.0-20.0); CALCIUM 8.6 MG/DL (8.5-10.1); CHLORIDE 104 MMOL/L (99-107); CREATININE 0.65 MG/DL (0.60-1.10); GLUCOSE 92 MG/DL (70-104); MAGNESIUM 2.2 MG/DL (1.5-2.4); POTASSIUM 4.6 MMOL/L (3.5-5.1); SODIUM 142 MMOL/L (135-145); TOTAL CARBON DIOXIDE 38.8 MMOL/L (24-32); TOTAL PROTEIN 6.5 G/DL (6.4-8.2); eCRCL 128 ML/MIN; eGFR > 90 ML/MIN
[2023-09-02] MEDS: docusate sodium 100mg/10ml UD cup PO SCH (08:00)
[2023-09-02] MEDS ORDERED: acetaminophen 325mg/10.15ml oral unit dose solution PO PRN ×3 (08:00)
[2023-09-02] MEDS ORDERED: magnesium hydroxide 30ml (MOM) UD suspension PO PRN (08:00)
[2023-09-02] MEDS: risperiDONE 0.5mg tablet PO SCH (08:45)
[2023-09-02] MEDS: buPROPion 75mg tablet PO SCH (08:46)
[2023-09-02] MEDS: benztropine 1mg tablet PO SCH (08:47)
[2023-09-02] MEDS: ESCITALOPRAM 10 mg tablet 10 MG TABLET PO SCH (08:47)
[2023-09-02] MEDS: methylPREDNISolone sod succ/PF 40mg inj. IV SCH (14:36)
[2023-09-02] MEDS: sennosides 8.6mg tablet PO SCH (20:10)
[2023-09-02] MEDS: traZODone 50mg tablet PO PRN (20:10)
[2023-09-03] VITALS (15 sets, daily range): BP systolic 102–141; BP diastolic 59–94; PULSE 74–104; RESP 14–23; TEMP 97.5–98.9; O2SAT 90–98
[2023-09-03 06:49] LABS: BASOPHILS % (AUTO) 0.1 % (0-1); EOSINOPHILS % (AUTO) 0.1 % (0-6); HEMATOCRIT 34.2 % (42.0-52.0); HEMOGLOBIN 11.1 g/dl (14.0-17.9); LYMPHOCYTES # (AUTO) 1.7 X10'3 (1.1-4.8); LYMPHOCYTES % (AUTO) 15.5 % (21-51); MEAN CORPUSCULAR HEMOGLOBIN 30.1 PG (27.0-31.0); MEAN CORPUSCULAR HGB CONC 32.4 g/dL (33.0-36.5); MEAN PLATELET VOLUME 8.1 FL (7.4-10.4); MONOCYTES # (AUTO) 0.6 X10'3 (0-0.9); MONOCYTES % (AUTO) 5.3 % (2-12); NEUTROPHILS # (AUTO) 8.9 X10'3 (1.8-7.7); PLATELET COUNT 487 X10'3 (140-440); RED BLOOD COUNT 3.68 X10'6 (4.70-6.10); WHITE BLOOD COUNT 11.2 X10'3 (4.5-11.0)
[2023-09-03 07:06] LABS: ALANINE AMINOTRANSFERASE 37 U/L (12-78); ALBUMIN/GLOBULIN RATIO 0.4 (1.1-1.5); ALKALINE PHOSPHATASE 57 IU/L (46-116); ANION GAP -1 (8-16); ASPARTATE AMINO TRANSFERASE 25 U/L (10-37); BILIRUBIN,TOTAL 0.3 MG/DL (0.1-1.0); BLOOD UREA NITROGEN 23 MG/DL (7-18); BUN/CREATININE RATIO 34.3 (10.0-20.0); CALCIUM 8.3 MG/DL (8.5-10.1); CHLORIDE 102 MMOL/L (99-107); CREATININE 0.67 MG/DL (0.60-1.10); GLUCOSE 109 MG/DL (70-104); MAGNESIUM 2.2 MG/DL (1.5-2.4); PHOSPHORUS 3.5 MG/DL (2.3-4.5); POTASSIUM 4.5 MMOL/L (3.5-5.1); SODIUM 141 MMOL/L (135-145); TOTAL CARBON DIOXIDE 39.5 MMOL/L (24-32); TOTAL PROTEIN 6.5 G/DL (6.4-8.2); eCRCL 124 ML/MIN; eGFR > 90 ML/MIN
[2023-09-03] MEDS ORDERED: iohexol 300mg/ml 100ml inj. ONE (15:35)
[2023-09-03] MEDS: guaiFENesin ER 600mg tablet PO SCH (20:51)
[2023-09-04] VITALS (8 sets, daily range): BP systolic 112–136; BP diastolic 75–88; PULSE 78–106; RESP 16–20; TEMP 98.4–99.4; O2SAT 85–98
[2023-09-04 07:06] LABS: BASOPHILS % (AUTO) 0.5 % (0-1); EOSINOPHILS % (AUTO) 0.1 % (0-6); HEMOGLOBIN 11.3 g/dl (14.0-17.9); LYMPHOCYTES # (AUTO) 1.3 X10'3 (1.1-4.8); LYMPHOCYTES % (AUTO) 12.6 % (21-51); MEAN CORPUSCULAR HEMOGLOBIN 30.4 PG (27.0-31.0); MEAN CORPUSCULAR HGB CONC 33.1 g/dL (33.0-36.5); MEAN CORPUSCULAR VOLUME 91.8 FL (78-98); MEAN PLATELET VOLUME 8.3 FL (7.4-10.4); MONOCYTES # (AUTO) 0.8 X10'3 (0-0.9); MONOCYTES % (AUTO) 7.3 % (2-12); NEUTROPHILS # (AUTO) 8.3 X10'3 (1.8-7.7); NEUTROPHILS % (AUTO) 79.5 % (42-75); PLATELET COUNT 483 X10'3 (140-440); WHITE BLOOD COUNT 10.4 X10'3 (4.5-11.0)
[2023-09-04 07:17] LABS: ALANINE AMINOTRANSFERASE 30 U/L (12-78); ALBUMIN 2.2 G/DL (3.4-5.0); ALBUMIN/GLOBULIN RATIO 0.5 (1.1-1.5); ALKALINE PHOSPHATASE 56 IU/L (46-116); ANION GAP -1 (8-16); ASPARTATE AMINO TRANSFERASE 17 U/L (10-37); BILIRUBIN,TOTAL 0.3 MG/DL (0.1-1.0); BLOOD UREA NITROGEN 25 MG/DL (7-18); BUN/CREATININE RATIO 37.9 (10.0-20.0); CALCIUM 8.4 MG/DL (8.5-10.1); CHLORIDE 100 MMOL/L (99-107); CREATININE 0.66 MG/DL (0.60-1.10); GLUCOSE 83 MG/DL (70-104); MAGNESIUM 2.1 MG/DL (1.5-2.4); PHOSPHORUS 4.1 MG/DL (2.3-4.5); POTASSIUM 4.4 MMOL/L (3.5-5.1); PREALBUMIN 23.6 MG/DL (19-36); SODIUM 138 MMOL/L (135-145); TOTAL CARBON DIOXIDE 38.6 MMOL/L (24-32); TOTAL PROTEIN 6.6 G/DL (6.4-8.2); eCRCL 126 ML/MIN; eGFR > 90 ML/MIN
[2023-09-04] MEDS ORDERED: PANT20TA18 PO (08:48)
[2023-09-04] MEDS ORDERED: IPRA3AMP9 NEB (08:48)
[2023-09-04] MEDS ORDERED: ALBU2.5V7 NEB (08:48)
[2023-09-04] MEDS ORDERED: METH4TAB81 PO (08:48)
[2023-09-04] MEDS ORDERED: LEVO-65 PO (08:48)
== END 2023-09-04 14:52 | disposition home or self-care (01) | DRG 720 ==
LOC: ER 19:09 → ED HOLD 20:47 → UNDOADMIN 20:47 → ED HOLD 08-23 04:23 → CICU 2S 08-23 04:23 → ED HOLD 08-23 04:31 → PCU 3S 08-30 16:49
PROVIDERS: ADMIT Internal Medicine Critical Care Medicine; ATTEND Internal Medicine Critical Care Medicine
PROC: 02HV33Z Insertion of Infusion Device into Superior Vena Cava, Percutaneous Approach (ICD-10-PCS; principal; 2023-08-23)
PROC: 5A1955Z Respiratory Ventilation, Greater than 96 Consecutive Hours (ICD-10-PCS; 2023-08-23)
PROC: 0BH17EZ Insertion of Endotracheal Airway into Trachea, Via Natural or Artificial Opening (ICD-10-PCS; 2023-08-23)
PROC: 5A0945A Assistance with Respiratory Ventilation, 24-96 Consecutive Hours, High Flow/Velocity Cannula (ICD-10-PCS; 2023-09-01)
DX: A41.9 Sepsis, unspecified organism (principal); J96.21 Acute and chronic respiratory failure with hypoxia; R65.21 Severe sepsis with septic shock; J44.0 Chronic obstructive pulmonary disease with (acute) lower respiratory infection; J14 Pneumonia due to Hemophilus influenzae; E87.1 Hypo-osmolality and hyponatremia; D63.8 Anemia in other chronic diseases classified elsewhere; Z20.822 Contact with and (suspected) exposure to COVID-19; E87.29 Other acidosis; R73.9 Hyperglycemia, unspecified; J96.22 Acute and chronic respiratory failure with hypercapnia; Z79.899 Other long term (current) drug therapy
CPT/HCPCS: 36415; 36600; 71045; 71260; 74018; 80048; 80053; 80305; 81001; 82271; 82803; 82810; 82948; 83605; 83735; 84100; 84134; 84145; 84478; 85007; 85018; 85025; 87040; 87070; 87077; 87081; 87185; 87502; 87503; 87811; 92508; 92616; 93005; 94002; 94003; 94640; 94664; 94668; 94760; 97161; 97530; 97535; 99291; A4314; A4333; A4340; A4620; A4624; A5200; A6213; A6258; A6449; A9900; C9113; G0378; J0696; J1644; J1956; J2704; J2920; J2930; J3010; J3490; J7030; J7040; J7120; Q9967

== ENCOUNTER 2023-09-10 12:44 | Inpatient (IN) | payer MEDICAID ==
[2023-09-10] VITALS (15 sets, daily range): BP systolic 107–126; BP diastolic 58–70; PULSE 105–116; RESP 17–24; TEMP 97–97.8; O2SAT 90–100
[~2023-09-10] VITALS: Ht 167.6 cm; Wt 57.2 kg
[~2023-09-10 12:44] MED LIST changes: +ALBU2.5V7 NEB; +BENZ1TAB78 PO; +BUPR-297 PO; +ESCI20TA39 PO; +IPRA3AMP9 NEB; +LEVO-65 PO; +METH4TAB81 PO; +PANT20TA18 PO; +RISP-31 PO; -RISP1TAB13 PO; +TRAZ-251 PO; +etomidate 2mg/ml inj. ONE; -rocuronium 10mg/ml inj IV ONE
[2023-09-10] MEDS: normal saline 1000ML IV soln IVB ONE (13:05)
[2023-09-10] MEDS: ipratropium 0.5 MG/2.5ML nebule IH ONE (13:05)
[2023-09-10 13:11] LABS: BASOPHILS % (AUTO) 0.3 % (0-1); EOSINOPHILS % (AUTO) 0.1 % (0-6); HEMATOCRIT 33.7 % (42.0-52.0); HEMOGLOBIN 11.2 g/dl (14.0-17.9); LYMPHOCYTES # (AUTO) 0.3 X10'3 (1.1-4.8); LYMPHOCYTES % (AUTO) 3.4 % (21-51); MEAN CORPUSCULAR HEMOGLOBIN 30.9 PG (27.0-31.0); MEAN CORPUSCULAR HGB CONC 33.3 g/dL (33.0-36.5); MEAN CORPUSCULAR VOLUME 92.8 FL (78-98); MEAN PLATELET VOLUME 8.1 FL (7.4-10.4); MONOCYTES # (AUTO) 0.1 X10'3 (0-0.9); MONOCYTES % (AUTO) 1.2 % (2-12); NEUTROPHILS # (AUTO) 9.9 X10'3 (1.8-7.7); PLATELET COUNT 323 X10'3 (140-440); RED BLOOD COUNT 3.64 X10'6 (4.70-6.10); RED CELL DISTRIBUTION WIDTH 15.5 % (11.5-14.5); WHITE BLOOD COUNT 10.4 X10'3 (4.5-11.0)
[2023-09-10 13:34] LABS: ANION GAP 2 (8-16); CHLORIDE 95 MMOL/L (99-107); PLATELET ESTIMATE NORMAL; PRO BRAIN NATRIURETIC PEPTIDE 1709 PG/ML (0-125); SODIUM 132 MMOL/L (135-145); TOTAL CARBON DIOXIDE 34.9 MMOL/L (24-32); TOTAL CELLS COUNTED 100
[2023-09-10 13:37] LABS: ABG HCO3 30.7 mmol/L (22.0-26.0); ABG OXYGEN SATURATION 96.7 % (94-97); ABG PCO2 (T) 59.5 mmHg (35.0-48.0); ABG PH (T) 7.334 (7.340-7.440); ABG PO2 (T) 99.1 mmHg (75.0-100.0); ALLEN'S TEST Yes; FHHb 3.3 % (0.0-5.0); FMetHb 0.2 % (0.0-1.5); FO2Hb 96.5 % (94-97); PATIENT TEMPERATURE 37.9; TOTAL HEMOGLOBIN 10.6 G/dl (14.0-17.9)
[2023-09-10 13:43] LABS: ALBUMIN 2.1 G/DL (3.4-5.0); BLOOD UREA NITROGEN 33 MG/DL (7-18); BUN/CREATININE RATIO 28.7 (10.0-20.0); CALCIUM 8.5 MG/DL (8.5-10.1); CREATININE 1.15 MG/DL (0.60-1.10); GLUCOSE 97 MG/DL (70-104); POTASSIUM 4.9 MMOL/L (3.5-5.1); eCRCL 62 ML/MIN; eGFR 69 ML/MIN
[2023-09-10] MEDS ORDERED: HYDROcodone/acetaminophen 10/325mg tab PO PRN (14:05)
[2023-09-10] MEDS ORDERED: potassium Cl 40MEQ/1/2NS 520ml 520 ML IV PRN (14:05)
[2023-09-10] MEDS ORDERED: magnesium Cl slow-release 64mg tablet PO PRN (14:05)
[2023-09-10] MEDS ORDERED: magnesium 2GM in 50ml NS 50 ML IV PRN (14:05)
[2023-09-10] MEDS ORDERED: HYDROcodone/acetaminophen 5mg/325mg tablet PO PRN (14:05)
[2023-09-10] MEDS ORDERED: acetaminophen 325mg tablet PO PRN ×2 (14:05)
[2023-09-10] MEDS ORDERED: magnesium 4gm in 100ml NS 100 ML IV PRN (14:05)
[2023-09-10] MEDS ORDERED: potassium Cl 20 mEq SR tablet PO PRN ×2 (14:05)
[2023-09-10] MEDS ORDERED: morphine 2 MG/ML inj. syringe IV PRN ×2 (14:05)
[2023-09-10] MEDS ORDERED: ondansetron/PF 4mg/2ml inj IV PRN (14:05)
[2023-09-10] MEDS: albuterol 2.5 MG/3 ML nebule CONTNEB PRN (14:18)
[2023-09-10] MEDS ORDERED: ALB0.5UD IH (14:33)
[2023-09-10] MEDS ORDERED: IPRA3AMP9 IH (14:33)
[2023-09-10] MEDS ORDERED: PANT20TA18 PO (14:38)
[2023-09-10] MEDS ORDERED: LEVO-65 PO (14:38)
[2023-09-10 14:47] LABS: D-DIMER 2.37 MG/L FEU (0-0.50)
[2023-09-10] MEDS: midodrine 5mg tablet PO SCH (14:52)
[2023-09-10] MEDS: normal saline 500ml IV soln 500 ML IV ONE (15:15)
[2023-09-10] MEDS: albuterol 2.5 MG/3 ML nebule NEB SCH (16:00)
[2023-09-10] MEDS: methylPREDNISolone sod succ 125mg/2ml vial IV SCH (19:54)
[2023-09-10] MEDS: heparin, porcine 5000 units/ml vial SQ SCH (19:54)
[2023-09-10] MEDS: ipratropium/albuterol 3ml nebule NEB SCH (22:39)
[2023-09-10] MEDS: midodrine tablet 2.5 MG TABLET PO ONE (22:51)
[2023-09-10] MEDS: furosemide 20 MG/2 ML vial IV ONE (22:51)
[2023-09-11] VITALS (41 sets, daily range): BP systolic 66–134; BP diastolic 34–68; PULSE 56–120; RESP 15–28; TEMP 97.8–100.2; O2SAT 88–98
[2023-09-11 07:03] LABS: ABG HCO3 28.7 mmol/L (22.0-26.0); ABG OXYGEN SATURATION 95.4 % (94-97); ABG PCO2 (T) 71.8 mmHg (35.0-48.0); ABG PH (T) 7.225 (7.340-7.440); ABG PO2 (T) 85.8 mmHg (75.0-100.0); ALLEN'S TEST POSITIVE; FCOHb 0.4 % (0.0-3.9); FHHb 4.6 % (0.0-5.0); FMetHb 0.3 % (0.0-1.5); FO2Hb 94.7 % (94-97); MODE MASK - BIPAP; PATIENT TEMPERATURE 37.9; RESPIRATORY RATE 12 b/min; TIDAL VOLUME 523 mL; TOTAL HEMOGLOBIN 11.5 G/dl (14.0-17.9)
[2023-09-11 07:10] LABS: BASOPHILS % (AUTO) 0 % (0-1); EOSINOPHILS % (AUTO) 0.1 % (0-6); HEMATOCRIT 32.1 % (42.0-52.0); HEMOGLOBIN 10.6 g/dl (14.0-17.9); LYMPHOCYTES # (AUTO) 0.2 X10'3 (1.1-4.8); LYMPHOCYTES % (AUTO) 2.2 % (21-51); MEAN CORPUSCULAR HEMOGLOBIN 31.2 PG (27.0-31.0); MEAN CORPUSCULAR HGB CONC 33.1 g/dL (33.0-36.5); MEAN CORPUSCULAR VOLUME 94.1 FL (78-98); MEAN PLATELET VOLUME 8.6 FL (7.4-10.4); MONOCYTES # (AUTO) 0.1 X10'3 (0-0.9); NEUTROPHILS # (AUTO) 9.2 X10'3 (1.8-7.7); NEUTROPHILS % (AUTO) 96.7 % (42-75); PLATELET COUNT 284 X10'3 (140-440); RED BLOOD COUNT 3.41 X10'6 (4.70-6.10); RED CELL DISTRIBUTION WIDTH 16.1 % (11.5-14.5); WHITE BLOOD COUNT 9.5 X10'3 (4.5-11.0)
[2023-09-11 07:31] LABS: ALANINE AMINOTRANSFERASE 13 U/L (12-78); ALBUMIN 1.7 G/DL (3.4-5.0); ALBUMIN/GLOBULIN RATIO 0.4 (1.1-1.5); ALKALINE PHOSPHATASE 67 IU/L (46-116); ANION GAP 0 (8-16); ASPARTATE AMINO TRANSFERASE 18 U/L (10-37); BILIRUBIN,TOTAL 0.4 MG/DL (0.1-1.0); BLOOD UREA NITROGEN 28 MG/DL (7-18); BUN/CREATININE RATIO 27.7 (10.0-20.0); CALCIUM 8.2 MG/DL (8.5-10.1); CHLORIDE 102 MMOL/L (99-107); CREATININE 1.01 MG/DL (0.60-1.10); GLUCOSE 103 MG/DL (70-104); POTASSIUM 4.5 MMOL/L (3.5-5.1); SODIUM 136 MMOL/L (135-145); TOTAL CARBON DIOXIDE 34.2 MMOL/L (24-32); TOTAL PROTEIN 6.1 G/DL (6.4-8.2); eCRCL 71 ML/MIN; eGFR 80 ML/MIN
[2023-09-11] MEDS ORDERED: CefTRIAXone 2gm/D5W 50ml BAG 50 ML IV SCH (08:00)
[2023-09-11] MEDS ORDERED: propofol 10mg/ml 20ml vial IV PRN (08:15)
[2023-09-11] MEDS ORDERED: midazolam 1 mg/ML 2ml injection IV PRN (08:15)
[2023-09-11] MEDS ORDERED: midazolam 100mg in NS 100ml 100 ML IV SCH (08:15)
[2023-09-11] MEDS ORDERED: MIDAZOLAM IN NACL,ISO-OSMOT/PF 100 ML IV SCH (08:29)
[2023-09-11] MEDS: ringers solution, lacted 1,000 ML IV SCH (08:40)
[2023-09-11] MEDS: ringers solution, lacted 1,000 ML IV ONE ×4 (09:02→11:35)
[2023-09-11] MEDS: propofol 1000mg/100ml bottle 100 ML IV SCH (09:03)
[2023-09-11] MEDS: LidoCAINE 2% Topical Jelly 11mL syringe (UROJET) TOP ONE (09:05)
[2023-09-11 10:10] LABS: ABG BASE EXCESS 4.2 mmol/L (-2.0-2.0); ABG OXYGEN SATURATION 93.6 % (94-97); ABG PCO2 (T) 46.8 mmHg (35.0-48.0); ABG PH (T) 7.414 (7.340-7.440); ABG PO2 (T) 64.9 mmHg (75.0-100.0); ALLEN'S TEST POSITIVE; FCOHb 0.3 % (0.0-3.9); FHHb 6.4 % (0.0-5.0); FMetHb 0.3 % (0.0-1.5); MODE VENT - ACPRVC; PEEP 8 cm H2O; RESPIRATORY RATE 18 b/min; TIDAL VOLUME 500 mL; TOTAL HEMOGLOBIN 9.9 G/dl (14.0-17.9)
[2023-09-11] MEDS: FENTANYL-0.9 % NACL/PF 100 ML IV SCH (10:18)
[2023-09-11] MEDS: acetaminophen 325mg/10.15ml oral unit dose solution PO PRN (12:40)
[2023-09-11] MEDS ORDERED: POTASSIUM BICARB 20meq eff tab 20 MEQ TABLET.EFF OGT PRN ×2 (13:10→13:11)
[2023-09-11] MEDS ORDERED: magnesium citrate 296ml oral solution PO PRN (13:10)
[2023-09-11] MEDS ORDERED: magnesium citrate 296ml oral solution OGT PRN (13:11)
[2023-09-11] MEDS: NORepinephrine 8mg/ 250ml NS 250 ML IV PRN (14:31)
[2023-09-11] MEDS: meropenem inj 500 MG in normal saline 100ml IV soln 100 ML IV SCH (15:19)
[2023-09-11] MEDS: albumin (Human) 5% 250ml 250 ML IV ONE ×4 (19:10→23:22)
[2023-09-11] MEDS: linezolid 600mg/300ml PREMIX 300 ML IV SCH (20:17)
[2023-09-11] MEDS: enoxaparin 40mg/0.4ml syringe SUBCUT SCH (20:18)
[2023-09-12] VITALS (44 sets, daily range): BP systolic 95–113; BP diastolic 48–68; PULSE 75–101; RESP 18–25; O2SAT 93–97
[2023-09-12 02:22] LABS: HEMOGLOBIN 8.6 g/dl (14.0-17.9); LYMPHOCYTES # (AUTO) 0.2 X10'3 (1.1-4.8); MEAN CORPUSCULAR HEMOGLOBIN 30.6 PG (27.0-31.0); MEAN CORPUSCULAR HGB CONC 33.3 g/dL (33.0-36.5); NEUTROPHILS # (AUTO) 2.2 X10'3 (1.8-7.7); WHITE BLOOD COUNT 2.5 X10'3 (4.5-11.0)
[2023-09-12 02:24] LABS: BASOPHILS % (AUTO) 0 % (0-1); EOSINOPHILS % (AUTO) 0.5 % (0-6); HEMATOCRIT 25.9 % (42.0-52.0); LYMPHOCYTES % (AUTO) 7.8 % (21-51); MEAN PLATELET VOLUME 8.6 FL (7.4-10.4); MONOCYTES # (AUTO) 0.1 X10'3 (0-0.9); MONOCYTES % (AUTO) 2.1 % (2-12); NEUTROPHILS % (AUTO) 89.6 % (42-75); PLATELET COUNT 231 X10'3 (140-440); RED BLOOD COUNT 2.82 X10'6 (4.70-6.10); RED CELL DISTRIBUTION WIDTH 15.3 % (11.5-14.5)
[2023-09-12 02:32] LABS: ALANINE AMINOTRANSFERASE 9 U/L (12-78); ALBUMIN 2.1 G/DL (3.4-5.0); ALBUMIN/GLOBULIN RATIO 0.6 (1.1-1.5); ALKALINE PHOSPHATASE 55 IU/L (46-116); ANION GAP 1 (8-16); ASPARTATE AMINO TRANSFERASE 16 U/L (10-37); BILIRUBIN,TOTAL 0.8 MG/DL (0.1-1.0); BLOOD UREA NITROGEN 37 MG/DL (7-18); BUN/CREATININE RATIO 31.4 (10.0-20.0); CALCIUM 8.2 MG/DL (8.5-10.1); CHLORIDE 104 MMOL/L (99-107); CREATININE 1.18 MG/DL (0.60-1.10); GLUCOSE 158 MG/DL (70-104); PHOSPHORUS 2.4 MG/DL (2.3-4.5); POTASSIUM 4.1 MMOL/L (3.5-5.1); PREALBUMIN 8.9 MG/DL (19-36); SODIUM 138 MMOL/L (135-145); TOTAL CARBON DIOXIDE 33.1 MMOL/L (24-32); TOTAL PROTEIN 5.5 G/DL (6.4-8.2); TRIGLYCERIDES 74 MG/DL (20-135); eCRCL 60 ML/MIN; eGFR 67 ML/MIN
[2023-09-12 03:23] LABS: PLATELET ESTIMATE NORMAL; TOTAL CELLS COUNTED 100
[2023-09-12 03:32] LABS: ABG BASE EXCESS 3.2 mmol/L (-2.0-2.0); ABG HCO3 28.7 mmol/L (22.0-26.0); ABG OXYGEN SATURATION 96.7 % (94-97); ABG PH (T) 7.373 (7.340-7.440); ABG PO2 (T) 89.6 mmHg (75.0-100.0); ALLEN'S TEST Modified; FCOHb 0.1 % (0.0-3.9); FHHb 3.3 % (0.0-5.0); FMetHb 0.3 % (0.0-1.5); FO2Hb 96.3 % (94-97); MODE PRVC; PATIENT TEMPERATURE 38.1; PEEP 8 cm H2O; RESPIRATORY RATE 18 b/min; TIDAL VOLUME 500 mL; TOTAL HEMOGLOBIN 9.5 G/dl (14.0-17.9)
[2023-09-12] MEDS ORDERED: propofol 10mg/ml 20ml vial IV PRN (06:45)
[2023-09-12] MEDS: pantoprazole 40MG/NS 100ML BAG 100 ML IV SCH (07:23)
[2023-09-12] MEDS ORDERED: DEXTROSE 15 GM of carb/4 tabs (each vial/BOTTLE has 4 tablets) PO PRN ×2 (10:00)
[2023-09-12] MEDS ORDERED: glucagon, human recombinant 1mg kit SUBCUT PRN (10:00)
[2023-09-12] MEDS ORDERED: dextrose 50%-water 50ml dispensing syringe IV PRN ×2 (10:00)
[2023-09-12] MEDS ORDERED: insulin regular, human U-100 3ml vial - multi-dose SQ SCH (13:25)
[2023-09-12] MEDS: mineral oil/petrolatum ophthal oint EACHEYE SCH (14:00)
[2023-09-12 14:16] LABS: HEMOGLOBIN A1C 5.6 % (4.5-6.2)
[2023-09-12] MEDS ORDERED: UNABLE TO OBTAIN (17:10)
[2023-09-12] MEDS: acetaminophen 325mg/10.15ml oral unit dose solution OGT PRN (19:51)
[2023-09-13] VITALS (48 sets, daily range): BP systolic 96–131; BP diastolic 52–80; PULSE 69–98; RESP 17–22; O2SAT 90–97
[2023-09-13 03:20] LABS: ABG BASE EXCESS 4.5 mmol/L (-2.0-2.0); ABG HCO3 29.3 mmol/L (22.0-26.0); ABG OXYGEN SATURATION 97.8 % (94-97); ABG PCO2 (T) 46.9 mmHg (35.0-48.0); ABG PH (T) 7.418 (7.340-7.440); ALLEN'S TEST Modified; FCOHb 0.2 % (0.0-3.9); FHHb 2.2 % (0.0-5.0); FMetHb 0.3 % (0.0-1.5); FO2Hb 97.3 % (94-97); MODE PRVC; PATIENT TEMPERATURE 37.9; PEEP 12 cm H2O; RESPIRATORY RATE 18 b/min; TIDAL VOLUME 500 mL; TOTAL HEMOGLOBIN 9.7 G/dl (14.0-17.9)
[2023-09-13 03:46] LABS: BASOPHILS % (AUTO) 0.1 % (0-1); EOSINOPHILS # (AUTO) 0.2 X10'3 (0-0.9); EOSINOPHILS % (AUTO) 2.3 % (0-6); HEMATOCRIT 23.3 % (42.0-52.0); HEMOGLOBIN 7.8 g/dl (14.0-17.9); LYMPHOCYTES # (AUTO) 0.6 X10'3 (1.1-4.8); LYMPHOCYTES % (AUTO) 7.8 % (21-51); MEAN CORPUSCULAR HEMOGLOBIN 30.8 PG (27.0-31.0); MEAN CORPUSCULAR HGB CONC 33.7 g/dL (33.0-36.5); MEAN CORPUSCULAR VOLUME 91.4 FL (78-98); MONOCYTES # (AUTO) 0.1 X10'3 (0-0.9); MONOCYTES % (AUTO) 1.8 % (2-12); NEUTROPHILS # (AUTO) 6.7 X10'3 (1.8-7.7); PLATELET COUNT 150 X10'3 (140-440); RED BLOOD COUNT 2.54 X10'6 (4.70-6.10); RED CELL DISTRIBUTION WIDTH 16.1 % (11.5-14.5); WHITE BLOOD COUNT 7.6 X10'3 (4.5-11.0)
[2023-09-13 03:57] LABS: ALANINE AMINOTRANSFERASE 11 U/L (12-78); ALBUMIN 1.4 G/DL (3.4-5.0); ALBUMIN/GLOBULIN RATIO 0.4 (1.1-1.5); ALKALINE PHOSPHATASE 58 IU/L (46-116); ANION GAP 2 (8-16); ASPARTATE AMINO TRANSFERASE 21 U/L (10-37); BILIRUBIN,TOTAL 0.4 MG/DL (0.1-1.0); BLOOD UREA NITROGEN 30 MG/DL (7-18); BUN/CREATININE RATIO 41.1 (10.0-20.0); CALCIUM 7.8 MG/DL (8.5-10.1); CHLORIDE 106 MMOL/L (99-107); CREATININE 0.73 MG/DL (0.60-1.10); GLUCOSE 114 MG/DL (70-104); SODIUM 141 MMOL/L (135-145); TOTAL CARBON DIOXIDE 32.7 MMOL/L (24-32); TOTAL PROTEIN 4.6 G/DL (6.4-8.2); eCRCL 98 ML/MIN; eGFR > 90 ML/MIN
[2023-09-13] MEDS: acetaminophen 325mg tablet OGT PRN (10:16)
[2023-09-13] MEDS: lactulose 20gm/30ml cup PO SCH (19:53)
[2023-09-14] VITALS (45 sets, daily range): BP systolic 97–127; BP diastolic 44–72; PULSE 76–98; RESP 16–23; TEMP 100.2; O2SAT 87–96
[2023-09-14 03:21] LABS: BASOPHILS % (AUTO) 0.1 % (0-1); EOSINOPHILS # (AUTO) 0.2 X10'3 (0-0.9); EOSINOPHILS % (AUTO) 1.3 % (0-6); HEMOGLOBIN 8.6 g/dl (14.0-17.9); LYMPHOCYTES # (AUTO) 0.9 X10'3 (1.1-4.8); LYMPHOCYTES % (AUTO) 6.9 % (21-51); MEAN CORPUSCULAR HEMOGLOBIN 30.1 PG (27.0-31.0); MEAN CORPUSCULAR VOLUME 91.2 FL (78-98); MEAN PLATELET VOLUME 8.9 FL (7.4-10.4); MONOCYTES # (AUTO) 0.3 X10'3 (0-0.9); MONOCYTES % (AUTO) 2.7 % (2-12); NEUTROPHILS # (AUTO) 11.3 X10'3 (1.8-7.7); PLATELET COUNT 144 X10'3 (140-440); RED BLOOD COUNT 2.85 X10'6 (4.70-6.10); RED CELL DISTRIBUTION WIDTH 15.8 % (11.5-14.5); WHITE BLOOD COUNT 12.7 X10'3 (4.5-11.0)
[2023-09-14 03:34] LABS: ALANINE AMINOTRANSFERASE 7 U/L (12-78); ALBUMIN 1.5 G/DL (3.4-5.0); ALBUMIN/GLOBULIN RATIO 0.4 (1.1-1.5); ALKALINE PHOSPHATASE 60 IU/L (46-116); ANION GAP 2 (8-16); ASPARTATE AMINO TRANSFERASE 30 U/L (10-37); BILIRUBIN,TOTAL 0.5 MG/DL (0.1-1.0); BLOOD UREA NITROGEN 35 MG/DL (7-18); BUN/CREATININE RATIO 55.6 (10.0-20.0); CHLORIDE 108 MMOL/L (99-107); CREATININE 0.63 MG/DL (0.60-1.10); GLUCOSE 113 MG/DL (70-104); POTASSIUM 4.1 MMOL/L (3.5-5.1); SODIUM 144 MMOL/L (135-145); TOTAL CARBON DIOXIDE 34.2 MMOL/L (24-32); TOTAL PROTEIN 5.4 G/DL (6.4-8.2); eCRCL 130 ML/MIN; eGFR > 90 ML/MIN
[2023-09-14 04:20] LABS: ABG BASE EXCESS 4.5 mmol/L (-2.0-2.0); ABG HCO3 29.7 mmol/L (22.0-26.0); ABG OXYGEN SATURATION 90.5 % (94-97); ABG PCO2 (T) 48.8 mmHg (35.0-48.0); ABG PH (T) 7.405 (7.340-7.440); ABG PO2 (T) 60.4 mmHg (75.0-100.0); ALLEN'S TEST POSITIVE; FCOHb 0.5 % (0.0-3.9); FHHb 9.4 % (0.0-5.0); FMetHb 0.3 % (0.0-1.5); FO2Hb 89.8 % (94-97); MODE VENT - AC; PATIENT TEMPERATURE 37.8; PEEP 12 cm H2O; RESPIRATORY RATE 18 b/min; TIDAL VOLUME 500 mL; TOTAL HEMOGLOBIN 9.5 G/dl (14.0-17.9)
[2023-09-14 05:03] LABS: TOTAL CELLS COUNTED 100
[2023-09-14 05:04] LABS: HYPOCHROMASIA 2+; PLATELET ESTIMATE NORMAL; SCHISTOCYTES FEW
[2023-09-14 05:05] LABS: TARGET CELLS 1+
[2023-09-14] MEDS: acetaZOLAMIDE IV 500mg inj IV SCH (08:40)
[2023-09-14] MEDS ORDERED: DEXTROSE 15 GM of carb/4 tabs (each vial/BOTTLE has 4 tablets) OGT PRN ×2 (15:17)
[2023-09-14] MEDS: acetaminophen 325mg tablet OGT PRN (19:55)
[2023-09-14] MEDS: lactulose 20gm/30ml cup OGT SCH (21:01)
[2023-09-15] VITALS (46 sets, daily range): BP systolic 12–139; BP diastolic 44–79; PULSE 66–103; RESP 16–23; O2SAT 88–97
[2023-09-15 03:13] LABS: ABG BASE EXCESS 4.5 mmol/L (-2.0-2.0); ABG HCO3 30.3 mmol/L (22.0-26.0); ABG OXYGEN SATURATION 95.3 % (94-97); ABG PH (T) 7.376 (7.340-7.440); ALLEN'S TEST Modified; FCOHb 0.9 % (0.0-3.9); FHHb 4.6 % (0.0-5.0); FMetHb 0.3 % (0.0-1.5); FO2Hb 94.2 % (94-97); MODE PRVC; PATIENT TEMPERATURE 37.4; PEEP 12 cm H2O; RESPIRATORY RATE 18 b/min; TIDAL VOLUME 500 mL; TOTAL HEMOGLOBIN 8.8 G/dl (14.0-17.9)
[2023-09-15 06:19] LABS: BASOPHILS % (AUTO) 0.3 % (0-1); EOSINOPHILS # (AUTO) 0.3 X10'3 (0-0.9); EOSINOPHILS % (AUTO) 2.3 % (0-6); HEMATOCRIT 24.7 % (42.0-52.0); LYMPHOCYTES # (AUTO) 1.4 X10'3 (1.1-4.8); LYMPHOCYTES % (AUTO) 11.4 % (21-51); MEAN CORPUSCULAR HEMOGLOBIN 29.9 PG (27.0-31.0); MEAN CORPUSCULAR HGB CONC 32.4 g/dL (33.0-36.5); MEAN CORPUSCULAR VOLUME 92.3 FL (78-98); MEAN PLATELET VOLUME 9.5 FL (7.4-10.4); MONOCYTES # (AUTO) 0.4 X10'3 (0-0.9); NEUTROPHILS # (AUTO) 10.4 X10'3 (1.8-7.7); PLATELET COUNT 153 X10'3 (140-440); RED BLOOD COUNT 2.68 X10'6 (4.70-6.10); RED CELL DISTRIBUTION WIDTH 16.4 % (11.5-14.5); WHITE BLOOD COUNT 12.6 X10'3 (4.5-11.0)
[2023-09-15 06:33] LABS: ALANINE AMINOTRANSFERASE 12 U/L (12-78); ALBUMIN 1.4 G/DL (3.4-5.0); ALBUMIN/GLOBULIN RATIO 0.4 (1.1-1.5); ALKALINE PHOSPHATASE 105 IU/L (46-116); ANION GAP 5 (8-16); ASPARTATE AMINO TRANSFERASE 27 U/L (10-37); BILIRUBIN,TOTAL 0.4 MG/DL (0.1-1.0); BLOOD UREA NITROGEN 35 MG/DL (7-18); BUN/CREATININE RATIO 63.6 (10.0-20.0); CALCIUM 7.9 MG/DL (8.5-10.1); CHLORIDE 110 MMOL/L (99-107); CREATININE 0.55 MG/DL (0.60-1.10); GLUCOSE 110 MG/DL (70-104); POTASSIUM 3.9 MMOL/L (3.5-5.1); PREALBUMIN 7.5 MG/DL (19-36); SODIUM 146 MMOL/L (135-145); TOTAL CARBON DIOXIDE 31.4 MMOL/L (24-32); TOTAL PROTEIN 5.2 G/DL (6.4-8.2); eCRCL 146 ML/MIN; eGFR > 90 ML/MIN
[2023-09-15] MEDS: levoFLOXACIN-Levaquin 750MG/D5 150 ML IV SCH (10:48)
[2023-09-15] MEDS: CefTRIAXone/D5W-Rocephin 1gm 50 ML IV SCH (12:06)
[2023-09-16] VITALS (43 sets, daily range): BP systolic 103–129; BP diastolic 47–71; PULSE 76–96; RESP 17–24; O2SAT 90–96
[2023-09-16 02:52] LABS: BASOPHILS % (AUTO) 0.4 % (0-1); EOSINOPHILS # (AUTO) 0.2 X10'3 (0-0.9); EOSINOPHILS % (AUTO) 1.5 % (0-6); HEMATOCRIT 25.3 % (42.0-52.0); LYMPHOCYTES # (AUTO) 1.4 X10'3 (1.1-4.8); LYMPHOCYTES % (AUTO) 10.7 % (21-51); MEAN CORPUSCULAR HEMOGLOBIN 29.2 PG (27.0-31.0); MEAN CORPUSCULAR HGB CONC 31.6 g/dL (33.0-36.5); MEAN CORPUSCULAR VOLUME 92.6 FL (78-98); MEAN PLATELET VOLUME 9.1 FL (7.4-10.4); MONOCYTES # (AUTO) 0.6 X10'3 (0-0.9); MONOCYTES % (AUTO) 4.6 % (2-12); NEUTROPHILS # (AUTO) 10.9 X10'3 (1.8-7.7); NEUTROPHILS % (AUTO) 82.8 % (42-75); PLATELET COUNT 177 X10'3 (140-440); RED BLOOD COUNT 2.73 X10'6 (4.70-6.10); WHITE BLOOD COUNT 13.2 X10'3 (4.5-11.0)
[2023-09-16 03:04] LABS: ANION GAP 4 (8-16); BLOOD UREA NITROGEN 30 MG/DL (7-18); BUN/CREATININE RATIO 49.2 (10.0-20.0); CHLORIDE 110 MMOL/L (99-107); CREATININE 0.61 MG/DL (0.60-1.10); GLUCOSE 105 MG/DL (70-104); POTASSIUM 3.5 MMOL/L (3.5-5.1); SODIUM 145 MMOL/L (135-145); TOTAL CARBON DIOXIDE 31.5 MMOL/L (24-32)
[2023-09-16 03:05] LABS: ALANINE AMINOTRANSFERASE 15 U/L (12-78); ALBUMIN 1.4 G/DL (3.4-5.0); ALBUMIN/GLOBULIN RATIO 0.4 (1.1-1.5); ALKALINE PHOSPHATASE 57 IU/L (46-116); ASPARTATE AMINO TRANSFERASE 26 U/L (10-37); BILIRUBIN,TOTAL 0.5 MG/DL (0.1-1.0); TOTAL PROTEIN 5.2 G/DL (6.4-8.2); eCRCL 138 ML/MIN; eGFR > 90 ML/MIN
[2023-09-16 03:40] LABS: ABG BASE EXCESS 3.2 mmol/L (-2.0-2.0); ABG HCO3 29.2 mmol/L (22.0-26.0); ABG OXYGEN SATURATION 93.8 % (94-97); ABG PH (T) 7.354 (7.340-7.440); ABG PO2 (T) 72.5 mmHg (75.0-100.0); ALLEN'S TEST Modified; FCOHb 1.2 % (0.0-3.9); FHHb 6.1 % (0.0-5.0); FMetHb 0.3 % (0.0-1.5); FO2Hb 92.4 % (94-97); MODE prvc; PATIENT TEMPERATURE 37.5; PEEP 12 cm H2O; RESPIRATORY RATE 181 b/min; TIDAL VOLUME 450 mL; TOTAL HEMOGLOBIN 8.5 G/dl (14.0-17.9)
[2023-09-16 04:39] LABS: PLATELET ESTIMATE NORMAL; TOTAL CELLS COUNTED 100
[2023-09-16 04:40] LABS: ANISOCYTOSIS 1+; HYPOCHROMASIA 1+
[2023-09-16 08:50] LABS: MAGNESIUM 1.9 MG/DL (1.5-2.4); PHOSPHORUS 4.1 MG/DL (2.3-4.5)
[2023-09-16] MEDS: lactobacillus rhamnosus 10,000 MMU CELLS/CAPSULE OGT SCH (10:13)
[2023-09-17] VITALS (55 sets, daily range): BP systolic 105–138; BP diastolic 50–76; PULSE 61–94; RESP 17–24; O2SAT 90–94
[2023-09-17 03:29] LABS: BASOPHILS % (AUTO) 0.1 % (0-1); EOSINOPHILS # (AUTO) 0.2 X10'3 (0-0.9); EOSINOPHILS % (AUTO) 2.4 % (0-6); HEMATOCRIT 22.2 % (42.0-52.0); HEMOGLOBIN 7.3 g/dl (14.0-17.9); LYMPHOCYTES # (AUTO) 1.5 X10'3 (1.1-4.8); LYMPHOCYTES % (AUTO) 15.7 % (21-51); MEAN CORPUSCULAR HEMOGLOBIN 30.2 PG (27.0-31.0); MEAN CORPUSCULAR HGB CONC 32.6 g/dL (33.0-36.5); MEAN CORPUSCULAR VOLUME 92.5 FL (78-98); MEAN PLATELET VOLUME 9.1 FL (7.4-10.4); MONOCYTES # (AUTO) 0.5 X10'3 (0-0.9); MONOCYTES % (AUTO) 5.1 % (2-12); NEUTROPHILS # (AUTO) 7.5 X10'3 (1.8-7.7); NEUTROPHILS % (AUTO) 76.7 % (42-75); PLATELET COUNT 184 X10'3 (140-440); RED CELL DISTRIBUTION WIDTH 16.8 % (11.5-14.5); WHITE BLOOD COUNT 9.8 X10'3 (4.5-11.0)
[2023-09-17 03:37] LABS: ABG BASE EXCESS 5.3 mmol/L (-2.0-2.0); ABG HCO3 30.8 mmol/L (22.0-26.0); ABG OXYGEN SATURATION 92.2 % (94-97); ABG PCO2 (T) 51.7 mmHg (35.0-48.0); ABG PH (T) 7.395 (7.340-7.440); ABG PO2 (T) 64.9 mmHg (75.0-100.0); ALLEN'S TEST Modified; FCOHb 0.9 % (0.0-3.9); FHHb 7.7 % (0.0-5.0); FMetHb 0.3 % (0.0-1.5); FO2Hb 91.1 % (94-97); MODE PRVC; PATIENT TEMPERATURE 37.4; PEEP 12 cm H2O; RESPIRATORY RATE 18 b/min; TIDAL VOLUME 450 mL; TOTAL HEMOGLOBIN 9.2 G/dl (14.0-17.9)
[2023-09-17 03:38] LABS: ALANINE AMINOTRANSFERASE 15 U/L (12-78); ALBUMIN 1.2 G/DL (3.4-5.0); ALBUMIN/GLOBULIN RATIO 0.3 (1.1-1.5); ALKALINE PHOSPHATASE 57 IU/L (46-116); ANION GAP 2 (8-16); ASPARTATE AMINO TRANSFERASE 23 U/L (10-37); BILIRUBIN,TOTAL 0.3 MG/DL (0.1-1.0); BLOOD UREA NITROGEN 29 MG/DL (7-18); BUN/CREATININE RATIO 47.5 (10.0-20.0); CALCIUM 8.1 MG/DL (8.5-10.1); CHLORIDE 111 MMOL/L (99-107); CREATININE 0.61 MG/DL (0.60-1.10); GLUCOSE 100 MG/DL (70-104); PHOSPHORUS 3.8 MG/DL (2.3-4.5); POTASSIUM 3.7 MMOL/L (3.5-5.1); SODIUM 146 MMOL/L (135-145); TOTAL CARBON DIOXIDE 32.6 MMOL/L (24-32); TOTAL PROTEIN 5.1 G/DL (6.4-8.2); eCRCL 138 ML/MIN; eGFR > 90 ML/MIN
[2023-09-17] MEDS: metolazone 2.5mg tablet OGT SCH (10:49)
[2023-09-17] MEDS: furosemide 20 MG/2 ML vial IV SCH (10:49)
[2023-09-17] MEDS: POTASSIUM BICARB 20meq eff tab 20 MEQ TABLET.EFF OGT ONE (10:49)
[2023-09-17] MEDS: POTASSIUM CHLORIDE 20 MEQ/15 ML oral solution OGT ONE (10:50)
[2023-09-18] VITALS (58 sets, daily range): BP systolic 100–137; BP diastolic 47–73; PULSE 58–98; RESP 16–23; O2SAT 89–99
[2023-09-18 02:42] LABS: BASOPHILS % (AUTO) 0.3 % (0-1); EOSINOPHILS # (AUTO) 0.2 X10'3 (0-0.9); EOSINOPHILS % (AUTO) 2.2 % (0-6); LYMPHOCYTES # (AUTO) 1.6 X10'3 (1.1-4.8); LYMPHOCYTES % (AUTO) 16.3 % (21-51); MEAN CORPUSCULAR HEMOGLOBIN 29.9 PG (27.0-31.0); MEAN CORPUSCULAR HGB CONC 32.5 g/dL (33.0-36.5); MEAN CORPUSCULAR VOLUME 91.8 FL (78-98); MONOCYTES # (AUTO) 0.4 X10'3 (0-0.9); MONOCYTES % (AUTO) 4.6 % (2-12); NEUTROPHILS # (AUTO) 7.5 X10'3 (1.8-7.7); NEUTROPHILS % (AUTO) 76.6 % (42-75); PLATELET COUNT 208 X10'3 (140-440); RED BLOOD COUNT 2.35 X10'6 (4.70-6.10); RED CELL DISTRIBUTION WIDTH 16.3 % (11.5-14.5); WHITE BLOOD COUNT 9.7 X10'3 (4.5-11.0)
[2023-09-18 02:47] LABS: HEMATOCRIT 21.6 % (42.0-52.0)
[2023-09-18 02:52] LABS: ALANINE AMINOTRANSFERASE 20 U/L (12-78); ALBUMIN 1.3 G/DL (3.4-5.0); ALBUMIN/GLOBULIN RATIO 0.3 (1.1-1.5); ALKALINE PHOSPHATASE 48 IU/L (46-116); ANION GAP 1 (8-16); ASPARTATE AMINO TRANSFERASE 25 U/L (10-37); BILIRUBIN,TOTAL 0.2 MG/DL (0.1-1.0); BLOOD UREA NITROGEN 27 MG/DL (7-18); CALCIUM 8.2 MG/DL (8.5-10.1); CHLORIDE 107 MMOL/L (99-107); CREATININE 0.54 MG/DL (0.60-1.10); GLUCOSE 116 MG/DL (70-104); MAGNESIUM 1.8 MG/DL (1.5-2.4); PHOSPHORUS 4.5 MG/DL (2.3-4.5); POTASSIUM 3.7 MMOL/L (3.5-5.1); PREALBUMIN 9.5 MG/DL (19-36); SODIUM 144 MMOL/L (135-145); TOTAL CARBON DIOXIDE 36.4 MMOL/L (24-32); TOTAL PROTEIN 5.4 G/DL (6.4-8.2); eCRCL 156 ML/MIN; eGFR > 90 ML/MIN
[2023-09-18 03:15] LABS: ABG BASE EXCESS 8.8 mmol/L (-2.0-2.0); ABG HCO3 33.9 mmol/L (22.0-26.0); ABG OXYGEN SATURATION 92.7 % (94-97); ABG PCO2 (T) 52.1 mmHg (35.0-48.0); ABG PH (T) 7.434 (7.340-7.440); ALLEN'S TEST Modified; FCOHb 0.7 % (0.0-3.9); FHHb 7.2 % (0.0-5.0); FMetHb 0.3 % (0.0-1.5); FO2Hb 91.8 % (94-97); MODE PRVC AV; PATIENT TEMPERATURE 37.5; PEEP 12 cm H2O; RESPIRATORY RATE 18 b/min; TIDAL VOLUME 450 mL
[2023-09-18 03:24] LABS: ANISOCYTOSIS 1+; PLATELET ESTIMATE NORMAL; TOTAL CELLS COUNTED 100
[2023-09-18 03:25] LABS: HYPOCHROMASIA 1+; POLYCHROMASIA FEW
[2023-09-18] MEDS: acetylcysteine 200 MG/ml 4ml vial INH SCH (06:58)
[2023-09-18] MEDS: furosemide 20 MG/2 ML vial IV SCH ×2 (07:34→13:52)
[2023-09-18] MEDS ORDERED: acetaminophen 325mg tablet NG PRN (10:48)
[2023-09-18] MEDS ORDERED: DEXTROSE 15 GM of carb/4 tabs (each vial/BOTTLE has 4 tablets) NG PRN ×2 (10:49)
[2023-09-18] MEDS: acetaminophen 325mg/10.15ml oral unit dose solution NG PRN (12:15)
[2023-09-18] MEDS: POTASSIUM BICARB 20meq eff tab 20 MEQ TABLET.EFF NG SCH (12:15)
[2023-09-18 17:38] LABS: HEMOGLOBIN 7.1 g/dl (14.0-17.9); MEAN CORPUSCULAR HEMOGLOBIN 29.9 PG (27.0-31.0); MEAN CORPUSCULAR VOLUME 90.7 FL (78-98); MEAN PLATELET VOLUME 8.5 FL (7.4-10.4); PLATELET COUNT 222 X10'3 (140-440); RED BLOOD COUNT 2.38 X10'6 (4.70-6.10); RED CELL DISTRIBUTION WIDTH 16.1 % (11.5-14.5); WHITE BLOOD COUNT 9.6 X10'3 (4.5-11.0)
[2023-09-18 17:43] LABS: HEMATOCRIT 21.6 % (42.0-52.0)
[2023-09-18 17:47] LABS: ALBUMIN 1.4 G/DL (3.4-5.0); BLOOD UREA NITROGEN 30 MG/DL (7-18); BUN/CREATININE RATIO 50.8 (10.0-20.0); CALCIUM 8.5 MG/DL (8.5-10.1); CHLORIDE 102 MMOL/L (99-107); CREATININE 0.59 MG/DL (0.60-1.10); GLUCOSE 118 MG/DL (70-104); MAGNESIUM 1.8 MG/DL (1.5-2.4); POTASSIUM 3.9 MMOL/L (3.5-5.1); SODIUM 143 MMOL/L (135-145); eCRCL 143 ML/MIN; eGFR > 90 ML/MIN
[2023-09-18 18:02] LABS: ANION GAP -5 (8-16)
[2023-09-18 18:03] LABS: TOTAL CARBON DIOXIDE 45.7 MMOL/L (24-32)
[2023-09-18] MEDS: metolazone 2.5mg tablet NG SCH (20:02)
[2023-09-18] MEDS: lactobacillus rhamnosus 10,000 MMU CELLS/CAPSULE NG SCH (20:02)
[2023-09-19] VITALS (52 sets, daily range): BP systolic 92–157; BP diastolic 40–84; PULSE 67–114; RESP 15–23; TEMP 98.6–99; O2SAT 90–99
[2023-09-19 02:41] LABS: BASOPHILS % (AUTO) 0.2 % (0-1); EOSINOPHILS # (AUTO) 0.2 X10'3 (0-0.9); EOSINOPHILS % (AUTO) 2.1 % (0-6); LYMPHOCYTES # (AUTO) 1.5 X10'3 (1.1-4.8); MEAN CORPUSCULAR HEMOGLOBIN 30.3 PG (27.0-31.0); MEAN CORPUSCULAR HGB CONC 33.4 g/dL (33.0-36.5); MEAN CORPUSCULAR VOLUME 90.7 FL (78-98); MEAN PLATELET VOLUME 8.6 FL (7.4-10.4); MONOCYTES # (AUTO) 0.4 X10'3 (0-0.9); MONOCYTES % (AUTO) 4.3 % (2-12); NEUTROPHILS # (AUTO) 6.9 X10'3 (1.8-7.7); NEUTROPHILS % (AUTO) 76.4 % (42-75); PLATELET COUNT 211 X10'3 (140-440); RED BLOOD COUNT 2.23 X10'6 (4.70-6.10); RED CELL DISTRIBUTION WIDTH 16.6 % (11.5-14.5)
[2023-09-19 02:49] LABS: ALANINE AMINOTRANSFERASE 17 U/L (12-78); ALBUMIN 1.3 G/DL (3.4-5.0); ALBUMIN/GLOBULIN RATIO 0.3 (1.1-1.5); ALKALINE PHOSPHATASE 48 IU/L (46-116); ASPARTATE AMINO TRANSFERASE 20 U/L (10-37); BILIRUBIN,TOTAL 0.3 MG/DL (0.1-1.0); BLOOD UREA NITROGEN 30 MG/DL (7-18); BUN/CREATININE RATIO 50.8 (10.0-20.0); CALCIUM 8.3 MG/DL (8.5-10.1); CHLORIDE 103 MMOL/L (99-107); CREATININE 0.59 MG/DL (0.60-1.10); GLUCOSE 93 MG/DL (70-104); MAGNESIUM 1.8 MG/DL (1.5-2.4); PHOSPHORUS 5.1 MG/DL (2.3-4.5); POTASSIUM 3.9 MMOL/L (3.5-5.1); SODIUM 143 MMOL/L (135-145); TOTAL PROTEIN 5.5 G/DL (6.4-8.2); TRIGLYCERIDES 31 MG/DL (20-135); eCRCL 143 ML/MIN; eGFR > 90 ML/MIN
[2023-09-19 02:56] LABS: HEMATOCRIT 20.2 % (42.0-52.0); HEMOGLOBIN 6.8 g/dl (14.0-17.9)
[2023-09-19 03:20] LABS: ANION GAP -5 (8-16)
[2023-09-19 03:22] LABS: ABG BASE EXCESS 17.1 mmol/L (-2.0-2.0); ABG HCO3 42.7 mmol/L (22.0-26.0); ABG OXYGEN SATURATION 93.8 % (94-97); ABG PCO2 (T) 59.6 mmHg (35.0-48.0); ABG PH (T) 7.474 (7.340-7.440); ABG PO2 (T) 72.4 mmHg (75.0-100.0); ALLEN'S TEST POSITIVE; FHHb 6.2 % (0.0-5.0); FMetHb 0.3 % (0.0-1.5); FO2Hb 93.5 % (94-97); MODE VENT - prvc; PATIENT TEMPERATURE 37.2; PEEP 12 cm H2O; RESPIRATORY RATE 18 b/min; TIDAL VOLUME 450 mL; TOTAL HEMOGLOBIN 8.9 G/dl (14.0-17.9)
[2023-09-19 03:30] LABS: TOTAL CARBON DIOXIDE 45.4 MMOL/L (24-32)
[2023-09-19] MEDS: acetylcysteine 200 MG/ml 4ml vial INH SCH (10:48)
[2023-09-19 15:53] LABS: HEMATOCRIT 24.5 % (42.0-52.0); HEMOGLOBIN 8.1 g/dl (14.0-17.9); MEAN CORPUSCULAR HEMOGLOBIN 30.2 PG (27.0-31.0); MEAN CORPUSCULAR HGB CONC 33.3 g/dL (33.0-36.5); MEAN CORPUSCULAR VOLUME 90.6 FL (78-98); MEAN PLATELET VOLUME 8.8 FL (7.4-10.4); PLATELET COUNT 243 X10'3 (140-440); RED CELL DISTRIBUTION WIDTH 15.9 % (11.5-14.5); WHITE BLOOD COUNT 10.6 X10'3 (4.5-11.0)
[2023-09-20] VITALS (44 sets, daily range): BP systolic 88–123; BP diastolic 45–72; PULSE 73–90; RESP 12–23; O2SAT 90–98
[2023-09-20 03:19] LABS: BASOPHILS % (AUTO) 0.3 % (0-1); EOSINOPHILS # (AUTO) 0.2 X10'3 (0-0.9); EOSINOPHILS % (AUTO) 1.6 % (0-6); HEMATOCRIT 23.5 % (42.0-52.0); HEMOGLOBIN 7.8 g/dl (14.0-17.9); LYMPHOCYTES # (AUTO) 1.6 X10'3 (1.1-4.8); LYMPHOCYTES % (AUTO) 15.4 % (21-51); MEAN CORPUSCULAR HGB CONC 33.3 g/dL (33.0-36.5); MEAN PLATELET VOLUME 8.8 FL (7.4-10.4); MONOCYTES # (AUTO) 0.5 X10'3 (0-0.9); MONOCYTES % (AUTO) 4.5 % (2-12); NEUTROPHILS # (AUTO) 8.1 X10'3 (1.8-7.7); NEUTROPHILS % (AUTO) 78.2 % (42-75); PLATELET COUNT 248 X10'3 (140-440); RED BLOOD COUNT 2.62 X10'6 (4.70-6.10); WHITE BLOOD COUNT 10.4 X10'3 (4.5-11.0)
[2023-09-20 03:27] LABS: ABG BASE EXCESS 15.8 mmol/L (-2.0-2.0); ABG HCO3 40.7 mmol/L (22.0-26.0); ABG OXYGEN SATURATION 92.6 % (94-97); ABG PCO2 (T) 54.1 mmHg (35.0-48.0); ABG PH (T) 7.496 (7.340-7.440); ABG PO2 (T) 65.5 mmHg (75.0-100.0); ALLEN'S TEST POSITIVE; FCOHb 0.4 % (0.0-3.9); FHHb 7.3 % (0.0-5.0); FMetHb 0.3 % (0.0-1.5); MODE VENT - prvc; PATIENT TEMPERATURE 37.4; PEEP 12 cm H2O; RESPIRATORY RATE 18 b/min; TIDAL VOLUME 450 mL; TOTAL HEMOGLOBIN 8.7 G/dl (14.0-17.9)
[2023-09-20 03:57] LABS: ALANINE AMINOTRANSFERASE 18 U/L (12-78); ALBUMIN 1.4 G/DL (3.4-5.0); ALBUMIN/GLOBULIN RATIO 0.3 (1.1-1.5); ALKALINE PHOSPHATASE 59 IU/L (46-116); ANION GAP -3 (8-16); ASPARTATE AMINO TRANSFERASE 23 U/L (10-37); BILIRUBIN,TOTAL 0.2 MG/DL (0.1-1.0); BLOOD UREA NITROGEN 29 MG/DL (7-18); CALCIUM 8.8 MG/DL (8.5-10.1); CHLORIDE 98 MMOL/L (99-107); CREATININE 0.58 MG/DL (0.60-1.10); GLUCOSE 94 MG/DL (70-104); MAGNESIUM 1.8 MG/DL (1.5-2.4); PHOSPHORUS 4.5 MG/DL (2.3-4.5); POTASSIUM 3.8 MMOL/L (3.5-5.1); SODIUM 139 MMOL/L (135-145); eCRCL 145 ML/MIN; eGFR > 90 ML/MIN
[2023-09-20 04:02] LABS: TOTAL CARBON DIOXIDE 44.2 MMOL/L (24-32)
[2023-09-20] MEDS: normal saline 1000ml 1,000 ML IV ONE (14:09)
[2023-09-21] VITALS (48 sets, daily range): BP systolic 95–129; BP diastolic 49–78; PULSE 59–83; RESP 18–24; O2SAT 91–97
[2023-09-21 00:26] LABS: BASOPHILS % (AUTO) 0.1 % (0-1); EOSINOPHILS # (AUTO) 0.2 X10'3 (0-0.9); EOSINOPHILS % (AUTO) 1.6 % (0-6); HEMATOCRIT 22.4 % (42.0-52.0); HEMOGLOBIN 7.7 g/dl (14.0-17.9); LYMPHOCYTES # (AUTO) 1.9 X10'3 (1.1-4.8); LYMPHOCYTES % (AUTO) 19.9 % (21-51); MEAN CORPUSCULAR HEMOGLOBIN 30.7 PG (27.0-31.0); MEAN CORPUSCULAR HGB CONC 34.5 g/dL (33.0-36.5); MEAN CORPUSCULAR VOLUME 89.1 FL (78-98); MEAN PLATELET VOLUME 8.4 FL (7.4-10.4); MONOCYTES # (AUTO) 0.4 X10'3 (0-0.9); MONOCYTES % (AUTO) 4.6 % (2-12); NEUTROPHILS # (AUTO) 6.9 X10'3 (1.8-7.7); NEUTROPHILS % (AUTO) 73.8 % (42-75); PLATELET COUNT 250 X10'3 (140-440); RED BLOOD COUNT 2.52 X10'6 (4.70-6.10); RED CELL DISTRIBUTION WIDTH 15.6 % (11.5-14.5); WHITE BLOOD COUNT 9.3 X10'3 (4.5-11.0)
[2023-09-21 00:40] LABS: ALANINE AMINOTRANSFERASE 17 U/L (12-78); ALBUMIN 1.4 G/DL (3.4-5.0); ALBUMIN/GLOBULIN RATIO 0.3 (1.1-1.5); ALKALINE PHOSPHATASE 55 IU/L (46-116); ANION GAP -3 (8-16); ASPARTATE AMINO TRANSFERASE 23 U/L (10-37); BILIRUBIN,TOTAL 0.3 MG/DL (0.1-1.0); BLOOD UREA NITROGEN 29 MG/DL (7-18); BUN/CREATININE RATIO 49.2 (10.0-20.0); CALCIUM 8.6 MG/DL (8.5-10.1); CHLORIDE 96 MMOL/L (99-107); CREATININE 0.59 MG/DL (0.60-1.10); GLUCOSE 103 MG/DL (70-104); MAGNESIUM 1.8 MG/DL (1.5-2.4); PHOSPHORUS 4.3 MG/DL (2.3-4.5); POTASSIUM 4.2 MMOL/L (3.5-5.1); SODIUM 136 MMOL/L (135-145); TOTAL PROTEIN 6.1 G/DL (6.4-8.2); eCRCL 143 ML/MIN; eGFR > 90 ML/MIN
[2023-09-21 00:45] LABS: TOTAL CARBON DIOXIDE 43.2 MMOL/L (24-32)
[2023-09-21 02:48] LABS: ABG BASE EXCESS 18.6 mmol/L (-2.0-2.0); ABG HCO3 43.9 mmol/L (22.0-26.0); ABG OXYGEN SATURATION 97.1 % (94-97); ABG PCO2 (T) 57.8 mmHg (35.0-48.0); ABG PH (T) 7.499 (7.340-7.440); ABG PO2 (T) 91.1 mmHg (75.0-100.0); ALLEN'S TEST Modified; FCOHb 0.3 % (0.0-3.9); FHHb 2.9 % (0.0-5.0); FMetHb 0.3 % (0.0-1.5); FO2Hb 96.5 % (94-97); MODE PRVC AC; PATIENT TEMPERATURE 37.2; PEEP 10 cm H2O; RESPIRATORY RATE 18 b/min; TIDAL VOLUME 450 mL; TOTAL HEMOGLOBIN 8.2 G/dl (14.0-17.9)
[2023-09-21] MEDS: POTASSIUM BICARB 20meq eff tab 20 MEQ TABLET.EFF NG SCH (14:00)
[2023-09-22] VITALS (47 sets, daily range): BP systolic 16–122; BP diastolic 50–80; PULSE 56–92; RESP 18–24; O2SAT 82–96
[2023-09-22 02:51] LABS: ALANINE AMINOTRANSFERASE 16 U/L (12-78); ALBUMIN 1.4 G/DL (3.4-5.0); ALBUMIN/GLOBULIN RATIO 0.3 (1.1-1.5); ALKALINE PHOSPHATASE 77 IU/L (46-116); ANION GAP 0 (8-16); ASPARTATE AMINO TRANSFERASE 21 U/L (10-37); BASOPHILS # (AUTO) 0.1 X10'3 (0-0.2); BASOPHILS % (AUTO) 1.3 % (0-1); BILIRUBIN,TOTAL 0.2 MG/DL (0.1-1.0); BLOOD UREA NITROGEN 28 MG/DL (7-18); BUN/CREATININE RATIO 45.2 (10.0-20.0); CALCIUM 8.3 MG/DL (8.5-10.1); CHLORIDE 95 MMOL/L (99-107); CREATININE 0.62 MG/DL (0.60-1.10); EOSINOPHILS # (AUTO) 0.2 X10'3 (0-0.9); EOSINOPHILS % (AUTO) 2.7 % (0-6); GLUCOSE 95 MG/DL (70-104); HEMOGLOBIN 7.3 g/dl (14.0-17.9); LYMPHOCYTES # (AUTO) 1.9 X10'3 (1.1-4.8); LYMPHOCYTES % (AUTO) 22.7 % (21-51); MAGNESIUM 1.9 MG/DL (1.5-2.4); MEAN CORPUSCULAR HEMOGLOBIN 29.7 PG (27.0-31.0); MEAN CORPUSCULAR HGB CONC 33.3 g/dL (33.0-36.5); MEAN CORPUSCULAR VOLUME 89.1 FL (78-98); MEAN PLATELET VOLUME 8.5 FL (7.4-10.4); MONOCYTES # (AUTO) 0.4 X10'3 (0-0.9); MONOCYTES % (AUTO) 4.7 % (2-12); NEUTROPHILS # (AUTO) 5.7 X10'3 (1.8-7.7); NEUTROPHILS % (AUTO) 68.6 % (42-75); PLATELET COUNT 266 X10'3 (140-440); POTASSIUM 3.9 MMOL/L (3.5-5.1); PREALBUMIN 12.2 MG/DL (19-36); RED BLOOD COUNT 2.46 X10'6 (4.70-6.10); RED CELL DISTRIBUTION WIDTH 15.9 % (11.5-14.5); SODIUM 132 MMOL/L (135-145); TOTAL CARBON DIOXIDE 37.3 MMOL/L (24-32); WHITE BLOOD COUNT 8.3 X10'3 (4.5-11.0); eCRCL 136 ML/MIN; eGFR > 90 ML/MIN
[2023-09-22 02:56] LABS: HEMATOCRIT 21.9 % (42.0-52.0)
[2023-09-22 03:37] LABS: ABG BASE EXCESS 11.8 mmol/L (-2.0-2.0); ABG HCO3 36.1 mmol/L (22.0-26.0); ABG OXYGEN SATURATION 91.2 % (94-97); ABG PCO2 (T) 47.1 mmHg (35.0-48.0); ABG PH (T) 7.502 (7.340-7.440); ABG PO2 (T) 61.9 mmHg (75.0-100.0); ALLEN'S TEST POSITIVE; FCOHb 0.6 % (0.0-3.9); FHHb 8.7 % (0.0-5.0); FMetHb 0.3 % (0.0-1.5); FO2Hb 90.4 % (94-97); MODE VENT - prvc; PATIENT TEMPERATURE 37.1; PEEP 8 cm H2O; RESPIRATORY RATE 18 b/min; TIDAL VOLUME 450 mL; TOTAL HEMOGLOBIN 8.3 G/dl (14.0-17.9)
[2023-09-22] MEDS: furosemide 40mg/4ml inj IV ONE ×2 (11:39→19:02)
[2023-09-23] VITALS (49 sets, daily range): BP systolic 87–142; BP diastolic 34–88; PULSE 3–99; RESP 17–29; O2SAT 87–97
[2023-09-23 02:14] LABS: BASOPHILS # (AUTO) 0.1 X10'3 (0-0.2); BASOPHILS % (AUTO) 0.7 % (0-1); EOSINOPHILS # (AUTO) 0.1 X10'3 (0-0.9); EOSINOPHILS % (AUTO) 1.8 % (0-6); HEMATOCRIT 22.4 % (42.0-52.0); HEMOGLOBIN 7.5 g/dl (14.0-17.9); LYMPHOCYTES # (AUTO) 1.4 X10'3 (1.1-4.8); LYMPHOCYTES % (AUTO) 20.3 % (21-51); MEAN CORPUSCULAR HEMOGLOBIN 29.9 PG (27.0-31.0); MEAN CORPUSCULAR HGB CONC 33.4 g/dL (33.0-36.5); MEAN CORPUSCULAR VOLUME 89.7 FL (78-98); MEAN PLATELET VOLUME 8.5 FL (7.4-10.4); MONOCYTES # (AUTO) 0.6 X10'3 (0-0.9); NEUTROPHILS # (AUTO) 4.8 X10'3 (1.8-7.7); NEUTROPHILS % (AUTO) 69.2 % (42-75); PLATELET COUNT 288 X10'3 (140-440); RED CELL DISTRIBUTION WIDTH 15.7 % (11.5-14.5)
[2023-09-23 02:30] LABS: ALANINE AMINOTRANSFERASE 19 U/L (12-78); ALBUMIN 1.5 G/DL (3.4-5.0); ALBUMIN/GLOBULIN RATIO 0.3 (1.1-1.5); ALKALINE PHOSPHATASE 65 IU/L (46-116); ANION GAP 1 (8-16); ASPARTATE AMINO TRANSFERASE 25 U/L (10-37); BILIRUBIN,TOTAL 0.2 MG/DL (0.1-1.0); BLOOD UREA NITROGEN 27 MG/DL (7-18); BUN/CREATININE RATIO 44.3 (10.0-20.0); CALCIUM 8.4 MG/DL (8.5-10.1); CHLORIDE 94 MMOL/L (99-107); CREATININE 0.61 MG/DL (0.60-1.10); GLUCOSE 106 MG/DL (70-104); MAGNESIUM 1.9 MG/DL (1.5-2.4); PHOSPHORUS 4.4 MG/DL (2.3-4.5); POTASSIUM 3.5 MMOL/L (3.5-5.1); SODIUM 132 MMOL/L (135-145); TOTAL CARBON DIOXIDE 36.6 MMOL/L (24-32); TOTAL PROTEIN 6.4 G/DL (6.4-8.2); eCRCL 138 ML/MIN; eGFR > 90 ML/MIN
[2023-09-23 04:46] LABS: ABG BASE EXCESS 11.7 mmol/L (-2.0-2.0); ABG HCO3 36.1 mmol/L (22.0-26.0); ABG OXYGEN SATURATION 93.9 % (94-97); ABG PCO2 (T) 46.6 mmHg (35.0-48.0); ABG PH (T) 7.507 (7.340-7.440); ABG PO2 (T) 69.2 mmHg (75.0-100.0); ALLEN'S TEST POSITIVE; FCOHb 0.1 % (0.0-3.9); FHHb 6.1 % (0.0-5.0); FMetHb 0.3 % (0.0-1.5); FO2Hb 93.5 % (94-97); MODE VENT - prvc; PEEP 8 cm H2O; RESPIRATORY RATE 18 b/min; TIDAL VOLUME 450 mL; TOTAL HEMOGLOBIN 10.1 G/dl (14.0-17.9)
[2023-09-23] MEDS: furosemide 20 MG/2 ML vial IV ONE (10:47)
[2023-09-23] MEDS: potassium Cl 20 mEq/100mL bag IV SCH (14:17)
[2023-09-23] MEDS: zolpidem 5mg tablet PO PRN (20:40)
[2023-09-24] VITALS (43 sets, daily range): BP systolic 99–153; BP diastolic 48–96; PULSE 60–87; RESP 13–28; O2SAT 91–97
[2023-09-24 02:18] LABS: BASOPHILS % (AUTO) 0.7 % (0-1); EOSINOPHILS # (AUTO) 0.1 X10'3 (0-0.9); EOSINOPHILS % (AUTO) 1.4 % (0-6); HEMATOCRIT 22.4 % (42.0-52.0); HEMOGLOBIN 7.5 g/dl (14.0-17.9); LYMPHOCYTES # (AUTO) 1.8 X10'3 (1.1-4.8); LYMPHOCYTES % (AUTO) 24.3 % (21-51); MEAN CORPUSCULAR HEMOGLOBIN 29.8 PG (27.0-31.0); MEAN CORPUSCULAR HGB CONC 33.5 g/dL (33.0-36.5); MEAN CORPUSCULAR VOLUME 89.1 FL (78-98); MEAN PLATELET VOLUME 8.1 FL (7.4-10.4); MONOCYTES # (AUTO) 0.6 X10'3 (0-0.9); MONOCYTES % (AUTO) 8.8 % (2-12); NEUTROPHILS # (AUTO) 4.7 X10'3 (1.8-7.7); NEUTROPHILS % (AUTO) 64.8 % (42-75); PLATELET COUNT 312 X10'3 (140-440); RED BLOOD COUNT 2.52 X10'6 (4.70-6.10); RED CELL DISTRIBUTION WIDTH 15.5 % (11.5-14.5); WHITE BLOOD COUNT 7.3 X10'3 (4.5-11.0)
[2023-09-24 02:30] LABS: ALANINE AMINOTRANSFERASE 21 U/L (12-78); ALBUMIN 1.6 G/DL (3.4-5.0); ALBUMIN/GLOBULIN RATIO 0.3 (1.1-1.5); ALKALINE PHOSPHATASE 57 IU/L (46-116); ANION GAP 4 (8-16); ASPARTATE AMINO TRANSFERASE 25 U/L (10-37); BILIRUBIN,TOTAL 0.2 MG/DL (0.1-1.0); BLOOD UREA NITROGEN 29 MG/DL (7-18); BUN/CREATININE RATIO 42.6 (10.0-20.0); CHLORIDE 97 MMOL/L (99-107); CREATININE 0.68 MG/DL (0.60-1.10); GLUCOSE 106 MG/DL (70-104); MAGNESIUM 1.7 MG/DL (1.5-2.4); PHOSPHORUS 3.3 MG/DL (2.3-4.5); POTASSIUM 3.4 MMOL/L (3.5-5.1); SODIUM 133 MMOL/L (135-145); TOTAL CARBON DIOXIDE 31.6 MMOL/L (24-32); TOTAL PROTEIN 6.4 G/DL (6.4-8.2); eCRCL 119 ML/MIN; eGFR > 90 ML/MIN
[2023-09-24 03:57] LABS: ABG BASE EXCESS 6.4 mmol/L (-2.0-2.0); ABG HCO3 29.2 mmol/L (22.0-26.0); ABG OXYGEN SATURATION 91.8 % (94-97); ABG PCO2 (T) 35.2 mmHg (35.0-48.0); ABG PH (T) 7.538 (7.340-7.440); ABG PO2 (T) 60.7 mmHg (75.0-100.0); ALLEN'S TEST POSITIVE; FCOHb 0.3 % (0.0-3.9); FHHb 8.2 % (0.0-5.0); FMetHb 0.3 % (0.0-1.5); FO2Hb 91.2 % (94-97); MODE VENT - prvc; PATIENT TEMPERATURE 37.4; PEEP 5 cm H2O; RESPIRATORY RATE 18 b/min; TIDAL VOLUME 450 mL; TOTAL HEMOGLOBIN 8.5 G/dl (14.0-17.9)
[2023-09-24] MEDS: POTASSIUM CHLORIDE 20 MEQ/15 ML oral solution NG SCH (14:00)
[2023-09-24] MEDS: zolpidem 5mg tablet NG PRN (19:59)
[2023-09-25] VITALS (37 sets, daily range): BP systolic 102–139; BP diastolic 58–86; PULSE 77–110; RESP 14–26; O2SAT 85–96
[2023-09-25 04:58] LABS: BASOPHILS # (AUTO) 0.1 X10'3 (0-0.2); BASOPHILS % (AUTO) 0.7 % (0-1); EOSINOPHILS # (AUTO) 0.2 X10'3 (0-0.9); HEMOGLOBIN 9.1 g/dl (14.0-17.9); LYMPHOCYTES # (AUTO) 1.5 X10'3 (1.1-4.8); LYMPHOCYTES % (AUTO) 19.9 % (21-51); MEAN CORPUSCULAR HGB CONC 33.5 g/dL (33.0-36.5); MEAN CORPUSCULAR VOLUME 89.5 FL (78-98); MEAN PLATELET VOLUME 7.9 FL (7.4-10.4); MONOCYTES # (AUTO) 0.8 X10'3 (0-0.9); MONOCYTES % (AUTO) 10.8 % (2-12); NEUTROPHILS % (AUTO) 65.6 % (42-75); PLATELET COUNT 416 X10'3 (140-440); RED BLOOD COUNT 3.02 X10'6 (4.70-6.10); RED CELL DISTRIBUTION WIDTH 15.6 % (11.5-14.5); WHITE BLOOD COUNT 7.6 X10'3 (4.5-11.0)
[2023-09-25 05:23] LABS: ALANINE AMINOTRANSFERASE 21 U/L (12-78); ALBUMIN 1.8 G/DL (3.4-5.0); ALBUMIN/GLOBULIN RATIO 0.4 (1.1-1.5); ALKALINE PHOSPHATASE 66 IU/L (46-116); ANION GAP 1 (8-16); ASPARTATE AMINO TRANSFERASE 19 U/L (10-37); BILIRUBIN,TOTAL 0.2 MG/DL (0.1-1.0); BLOOD UREA NITROGEN 24 MG/DL (7-18); BUN/CREATININE RATIO 42.9 (10.0-20.0); CALCIUM 8.2 MG/DL (8.5-10.1); CHLORIDE 104 MMOL/L (99-107); CREATININE 0.56 MG/DL (0.60-1.10); GLUCOSE 97 MG/DL (70-104); MAGNESIUM 1.9 MG/DL (1.5-2.4); PHOSPHORUS 4.2 MG/DL (2.3-4.5); POTASSIUM 4.3 MMOL/L (3.5-5.1); PREALBUMIN 14.6 MG/DL (19-36); SODIUM 138 MMOL/L (135-145); TOTAL CARBON DIOXIDE 32.9 MMOL/L (24-32); TOTAL PROTEIN 6.9 G/DL (6.4-8.2); eCRCL 139 ML/MIN; eGFR > 90 ML/MIN
[2023-09-25] MEDS: furosemide 40mg/4ml inj IV ONE (23:03)
[2023-09-26] VITALS (46 sets, daily range): BP systolic 95–140; BP diastolic 49–88; PULSE 14–110; RESP 14–32; O2SAT 83–100
[2023-09-26 03:27] LABS: BASOPHILS % (AUTO) 0.2 % (0-1); EOSINOPHILS # (AUTO) 0.2 X10'3 (0-0.9); EOSINOPHILS % (AUTO) 1.2 % (0-6); HEMATOCRIT 29.1 % (42.0-52.0); HEMOGLOBIN 9.4 g/dl (14.0-17.9); LYMPHOCYTES # (AUTO) 1.5 X10'3 (1.1-4.8); LYMPHOCYTES % (AUTO) 10.2 % (21-51); MEAN CORPUSCULAR HEMOGLOBIN 29.1 PG (27.0-31.0); MEAN CORPUSCULAR HGB CONC 32.4 g/dL (33.0-36.5); MEAN CORPUSCULAR VOLUME 89.9 FL (78-98); MEAN PLATELET VOLUME 7.8 FL (7.4-10.4); MONOCYTES # (AUTO) 0.9 X10'3 (0-0.9); MONOCYTES % (AUTO) 6.4 % (2-12); NEUTROPHILS # (AUTO) 11.9 X10'3 (1.8-7.7); PLATELET COUNT 471 X10'3 (140-440); RED BLOOD COUNT 3.24 X10'6 (4.70-6.10); RED CELL DISTRIBUTION WIDTH 15.7 % (11.5-14.5); WHITE BLOOD COUNT 14.5 X10'3 (4.5-11.0)
[2023-09-26 03:43] LABS: ALANINE AMINOTRANSFERASE 20 U/L (12-78); ALBUMIN/GLOBULIN RATIO 0.4 (1.1-1.5); ALKALINE PHOSPHATASE 72 IU/L (46-116); ANION GAP 6 (8-16); ASPARTATE AMINO TRANSFERASE 19 U/L (10-37); BILIRUBIN,TOTAL 0.4 MG/DL (0.1-1.0); BLOOD UREA NITROGEN 22 MG/DL (7-18); BUN/CREATININE RATIO 31.9 (10.0-20.0); CALCIUM 8.5 MG/DL (8.5-10.1); CHLORIDE 96 MMOL/L (99-107); CREATININE 0.69 MG/DL (0.60-1.10); GLUCOSE 91 MG/DL (70-104); MAGNESIUM 1.8 MG/DL (1.5-2.4); PHOSPHORUS 4.4 MG/DL (2.3-4.5); POTASSIUM 3.9 MMOL/L (3.5-5.1); SODIUM 134 MMOL/L (135-145); TOTAL CARBON DIOXIDE 32.3 MMOL/L (24-32); TOTAL PROTEIN 7.4 G/DL (6.4-8.2); TRIGLYCERIDES 34 MG/DL (20-135); eCRCL 113 ML/MIN; eGFR > 90 ML/MIN
[2023-09-26] MEDS: furosemide 40mg/4ml inj IV ONE (09:32)
[2023-09-26] MEDS: methylPREDNISolone sod succ 125mg/2ml vial IV ONE (13:48)
[2023-09-26] MEDS: methylPREDNISolone sod succ 125mg/2ml vial IV SCH (14:00)
[2023-09-26 16:01] LABS: ABG BASE EXCESS 7.4 mmol/L (-2.0-2.0); ABG HCO3 33.7 mmol/L (22.0-26.0); ABG OXYGEN SATURATION 88.7 % (94-97); ABG PCO2 (T) 56.8 mmHg (35.0-48.0); ABG PH (T) 7.391 (7.340-7.440); ABG PO2 (T) 54.2 mmHg (75.0-100.0); ALLEN'S TEST POSITIVE; FCOHb 0.4 % (0.0-3.9); FHHb 11.2 % (0.0-5.0); FLOW 40 L/min; FMetHb 0.3 % (0.0-1.5); FO2Hb 88.1 % (94-97); MODE HIGH FLOW; TOTAL HEMOGLOBIN 10.7 G/dl (14.0-17.9)
[2023-09-26 19:01] LABS: ABG BASE EXCESS 8.2 mmol/L (-2.0-2.0); ABG HCO3 34.6 mmol/L (22.0-26.0); ABG OXYGEN SATURATION 97.3 % (94-97); ABG PH (T) 7.393 (7.340-7.440); ALLEN'S TEST POSITIVE; FCOHb 0.2 % (0.0-3.9); FHHb 2.7 % (0.0-5.0); FMetHb 0.3 % (0.0-1.5); FO2Hb 96.8 % (94-97); TOTAL HEMOGLOBIN 10.6 G/dl (14.0-17.9)
[2023-09-27] VITALS (41 sets, daily range): BP systolic 99–129; BP diastolic 40–86; PULSE 57–100; RESP 11–32; O2SAT 73–99
[2023-09-27 02:28] LABS: BASOPHILS % (AUTO) 0.1 % (0-1); EOSINOPHILS % (AUTO) 0 % (0-6); HEMATOCRIT 29.1 % (42.0-52.0); HEMOGLOBIN 9.5 g/dl (14.0-17.9); MEAN CORPUSCULAR HEMOGLOBIN 29.2 PG (27.0-31.0); MEAN CORPUSCULAR HGB CONC 32.6 g/dL (33.0-36.5); MEAN CORPUSCULAR VOLUME 89.7 FL (78-98); MEAN PLATELET VOLUME 7.6 FL (7.4-10.4); MONOCYTES # (AUTO) 0.2 X10'3 (0-0.9); MONOCYTES % (AUTO) 1.2 % (2-12); NEUTROPHILS # (AUTO) 18.4 X10'3 (1.8-7.7); NEUTROPHILS % (AUTO) 93.7 % (42-75); PLATELET COUNT 470 X10'3 (140-440); RED BLOOD COUNT 3.25 X10'6 (4.70-6.10); RED CELL DISTRIBUTION WIDTH 15.7 % (11.5-14.5); WHITE BLOOD COUNT 19.6 X10'3 (4.5-11.0)
[2023-09-27 02:38] LABS: ALANINE AMINOTRANSFERASE 15 U/L (12-78); ALBUMIN 1.9 G/DL (3.4-5.0); ALBUMIN/GLOBULIN RATIO 0.3 (1.1-1.5); ALKALINE PHOSPHATASE 75 IU/L (46-116); ANION GAP -2 (8-16); ASPARTATE AMINO TRANSFERASE 9 U/L (10-37); BILIRUBIN,TOTAL 0.3 MG/DL (0.1-1.0); BLOOD UREA NITROGEN 23 MG/DL (7-18); CALCIUM 8.3 MG/DL (8.5-10.1); CHLORIDE 99 MMOL/L (99-107); CREATININE 0.59 MG/DL (0.60-1.10); GLUCOSE 153 MG/DL (70-104); MAGNESIUM 2.1 MG/DL (1.5-2.4); POTASSIUM 4.3 MMOL/L (3.5-5.1); SODIUM 135 MMOL/L (135-145); TOTAL CARBON DIOXIDE 37.5 MMOL/L (24-32); TOTAL PROTEIN 7.5 G/DL (6.4-8.2); eCRCL 131 ML/MIN; eGFR > 90 ML/MIN
[2023-09-27 03:42] LABS: ABG BASE EXCESS 7.7 mmol/L (-2.0-2.0); ABG HCO3 35.2 mmol/L (22.0-26.0); ABG OXYGEN SATURATION 96.2 % (94-97); ABG PCO2 (T) 66.1 mmHg (35.0-48.0); ABG PH (T) 7.344 (7.340-7.440); ALLEN'S TEST POSITIVE; FCOHb 0.2 % (0.0-3.9); FHHb 3.8 % (0.0-5.0); FMetHb 0.3 % (0.0-1.5); FO2Hb 95.7 % (94-97); TOTAL HEMOGLOBIN 10.8 G/dl (14.0-17.9)
[2023-09-27] MEDS: lactose-reduced food (Ensure High Protein) 237ml bottle PO SCH (17:30)
[2023-09-27] MEDS: methylPREDNISolone sod succ/PF 40mg inj. IV SCH (19:17)
[2023-09-28] VITALS (41 sets, daily range): BP systolic 97–135; BP diastolic 62–99; PULSE 54–121; RESP 11–33; O2SAT 88–100
[2023-09-28 03:46] LABS: BASOPHILS % (AUTO) 0.1 % (0-1); EOSINOPHILS % (AUTO) 0 % (0-6); HEMATOCRIT 26.6 % (42.0-52.0); HEMOGLOBIN 8.8 g/dl (14.0-17.9); LYMPHOCYTES # (AUTO) 0.8 X10'3 (1.1-4.8); LYMPHOCYTES % (AUTO) 5.1 % (21-51); MEAN CORPUSCULAR HEMOGLOBIN 29.7 PG (27.0-31.0); MEAN CORPUSCULAR HGB CONC 33.1 g/dL (33.0-36.5); MEAN CORPUSCULAR VOLUME 89.8 FL (78-98); MEAN PLATELET VOLUME 7.5 FL (7.4-10.4); MONOCYTES # (AUTO) 0.4 X10'3 (0-0.9); MONOCYTES % (AUTO) 2.6 % (2-12); NEUTROPHILS # (AUTO) 15.4 X10'3 (1.8-7.7); NEUTROPHILS % (AUTO) 92.2 % (42-75); PLATELET COUNT 500 X10'3 (140-440); RED BLOOD COUNT 2.96 X10'6 (4.70-6.10); RED CELL DISTRIBUTION WIDTH 15.4 % (11.5-14.5); WHITE BLOOD COUNT 16.7 X10'3 (4.5-11.0)
[2023-09-28 03:58] LABS: ALANINE AMINOTRANSFERASE 18 U/L (12-78); ALBUMIN 1.8 G/DL (3.4-5.0); ALBUMIN/GLOBULIN RATIO 0.3 (1.1-1.5); ALKALINE PHOSPHATASE 67 IU/L (46-116); ANION GAP 3 (8-16); ASPARTATE AMINO TRANSFERASE 6 U/L (10-37); BILIRUBIN,TOTAL 0.1 MG/DL (0.1-1.0); BLOOD UREA NITROGEN 36 MG/DL (7-18); BUN/CREATININE RATIO 67.9 (10.0-20.0); CALCIUM 8.6 MG/DL (8.5-10.1); CHLORIDE 97 MMOL/L (99-107); CREATININE 0.53 MG/DL (0.60-1.10); GLUCOSE 154 MG/DL (70-104); MAGNESIUM 2.2 MG/DL (1.5-2.4); PHOSPHORUS 3.3 MG/DL (2.3-4.5); POTASSIUM 4.7 MMOL/L (3.5-5.1); SODIUM 135 MMOL/L (135-145); TOTAL CARBON DIOXIDE 34.7 MMOL/L (24-32); eCRCL 146 ML/MIN; eGFR > 90 ML/MIN
[2023-09-28] MEDS: furosemide 20 MG/2 ML vial IV SCH (20:38)
[2023-09-29] VITALS (38 sets, daily range): BP systolic 100–145; BP diastolic 60–89; PULSE 67–113; RESP 10–31; TEMP 97.6–97.9; O2SAT 87–100
[2023-09-29 03:50] LABS: MEAN CORPUSCULAR HGB CONC 32.3 g/dL (33.0-36.5); PLATELET COUNT 606 X10'3 (140-440)
[2023-09-29 03:52] LABS: BASOPHILS % (AUTO) 0.1 % (0-1); EOSINOPHILS % (AUTO) 0 % (0-6); HEMATOCRIT 31.9 % (42.0-52.0); HEMOGLOBIN 10.3 g/dl (14.0-17.9); MEAN CORPUSCULAR VOLUME 89.8 FL (78-98); MEAN PLATELET VOLUME 7.2 FL (7.4-10.4); MONOCYTES # (AUTO) 0.5 X10'3 (0-0.9); MONOCYTES % (AUTO) 3.4 % (2-12); NEUTROPHILS # (AUTO) 12.3 X10'3 (1.8-7.7); NEUTROPHILS % (AUTO) 89.5 % (42-75); RED BLOOD COUNT 3.55 X10'6 (4.70-6.10); RED CELL DISTRIBUTION WIDTH 15.8 % (11.5-14.5); WHITE BLOOD COUNT 13.7 X10'3 (4.5-11.0)
[2023-09-29 04:06] LABS: ALANINE AMINOTRANSFERASE 19 U/L (12-78); ALBUMIN/GLOBULIN RATIO 0.4 (1.1-1.5); ALKALINE PHOSPHATASE 93 IU/L (46-116); ANION GAP 3 (8-16); ASPARTATE AMINO TRANSFERASE 22 U/L (10-37); BILIRUBIN,TOTAL 0.2 MG/DL (0.1-1.0); BLOOD UREA NITROGEN 31 MG/DL (7-18); BUN/CREATININE RATIO 51.7 (10.0-20.0); CALCIUM 8.6 MG/DL (8.5-10.1); CHLORIDE 96 MMOL/L (99-107); GLUCOSE 147 MG/DL (70-104); MAGNESIUM 1.9 MG/DL (1.5-2.4); PHOSPHORUS 3.6 MG/DL (2.3-4.5); POTASSIUM 5.1 MMOL/L (3.5-5.1); SODIUM 135 MMOL/L (135-145); TOTAL CARBON DIOXIDE 36.4 MMOL/L (24-32); TOTAL PROTEIN 7.4 G/DL (6.4-8.2); eCRCL 129 ML/MIN; eGFR > 90 ML/MIN
[2023-09-29] MEDS: cholecalciferol (vitamin D3) 1,000 unit (25mcg) tablet PO SCH (08:31)
[2023-09-29] MEDS: prednisone 10mg tablet PO SCH (08:32)
[2023-09-29] MEDS: levoFLOXACIN 500mg tablet PO SCH (12:13)
[2023-09-29] MEDS: POTASSIUM CHLORIDE 20 MEQ/15 ML oral solution PO SCH (19:26)
[2023-09-29] MEDS: traZODone 50mg tablet PO SCH (20:05)
[2023-09-29] MEDS: risperiDONE 0.5mg tablet PO SCH (20:05)
[2023-09-29] MEDS: furosemide 20 MG/2 ML vial IV SCH (20:06)
[2023-09-30] VITALS (28 sets, daily range): BP systolic 100–148; BP diastolic 57–85; PULSE 73–120; RESP 14–28; TEMP 96.7–98.8; O2SAT 88–98
[2023-09-30] MEDS: acetaminophen 325mg tablet NG PRN (01:45)
[2023-09-30 04:15] LABS: BASOPHILS # (AUTO) 0.1 X10'3 (0-0.2); EOSINOPHILS # (AUTO) 0.1 X10'3 (0-0.9); EOSINOPHILS % (AUTO) 0.6 % (0-6); HEMATOCRIT 30.5 % (42.0-52.0); HEMOGLOBIN 9.9 g/dl (14.0-17.9); LYMPHOCYTES # (AUTO) 1.4 X10'3 (1.1-4.8); LYMPHOCYTES % (AUTO) 11.2 % (21-51); MEAN CORPUSCULAR HEMOGLOBIN 29.1 PG (27.0-31.0); MEAN CORPUSCULAR HGB CONC 32.4 g/dL (33.0-36.5); MEAN CORPUSCULAR VOLUME 89.9 FL (78-98); MEAN PLATELET VOLUME 7.6 FL (7.4-10.4); MONOCYTES # (AUTO) 1.3 X10'3 (0-0.9); MONOCYTES % (AUTO) 10.1 % (2-12); NEUTROPHILS # (AUTO) 9.5 X10'3 (1.8-7.7); NEUTROPHILS % (AUTO) 77.1 % (42-75); PLATELET COUNT 547 X10'3 (140-440); RED BLOOD COUNT 3.39 X10'6 (4.70-6.10); RED CELL DISTRIBUTION WIDTH 15.7 % (11.5-14.5); WHITE BLOOD COUNT 12.3 X10'3 (4.5-11.0)
[2023-09-30 04:27] LABS: ALANINE AMINOTRANSFERASE 18 U/L (12-78); ALBUMIN/GLOBULIN RATIO 0.4 (1.1-1.5); ALKALINE PHOSPHATASE 70 IU/L (46-116); ANION GAP -4 (8-16); ASPARTATE AMINO TRANSFERASE 12 U/L (10-37); BILIRUBIN,TOTAL 0.2 MG/DL (0.1-1.0); BLOOD UREA NITROGEN 31 MG/DL (7-18); BUN/CREATININE RATIO 48.4 (10.0-20.0); CALCIUM 8.7 MG/DL (8.5-10.1); CHLORIDE 99 MMOL/L (99-107); CREATININE 0.64 MG/DL (0.60-1.10); GLUCOSE 98 MG/DL (70-104); MAGNESIUM 1.9 MG/DL (1.5-2.4); PHOSPHORUS 3.9 MG/DL (2.3-4.5); POTASSIUM 4.2 MMOL/L (3.5-5.1); SODIUM 139 MMOL/L (135-145); eCRCL 121 ML/MIN; eGFR > 90 ML/MIN
[2023-09-30 04:38] LABS: TOTAL CELLS COUNTED 100
[2023-09-30 04:40] LABS: ANISOCYTOSIS 1+; HYPOCHROMASIA 1+; PLATELET ESTIMATE INCREASED
[2023-09-30 04:41] LABS: SCHISTOCYTES FEW
[2023-09-30] MEDS: pantoprazole 40mg Tablet.DR PO SCH (08:44)
[2023-09-30] MEDS: ESCITALOPRAM 10 mg tablet 10 MG TABLET PO SCH (08:44)
[2023-09-30] MEDS: buPROPion 75mg tablet PO SCH (08:44)
[2023-09-30 11:16] LABS: ABG BASE EXCESS 15.9 mmol/L (-2.0-2.0); ABG HCO3 46.1 mmol/L (22.0-26.0); ABG OXYGEN SATURATION 91.4 % (94-97); ABG PCO2 (T) 94.1 mmHg (35.0-48.0); ABG PH (T) 7.308 (7.340-7.440); ABG PO2 (T) 64.6 mmHg (75.0-100.0); ALLEN'S TEST POSITIVE; FCOHb 0.5 % (0.0-3.9); FHHb 8.5 % (0.0-5.0); FMetHb 0.3 % (0.0-1.5); FO2Hb 90.7 % (94-97); MODE MASK - BIPAP; RESPIRATORY RATE 10 b/min; TIDAL VOLUME 350 mL; TOTAL HEMOGLOBIN 11.8 G/dl (14.0-17.9)
[2023-09-30] MEDS: normal saline 1000ml 1,000 ML IV SCH (11:30)
[2023-09-30 15:23] LABS: ABG BASE EXCESS 9.6 mmol/L (-2.0-2.0); ABG OXYGEN SATURATION 97.9 % (94-97); ABG PCO2 (T) 75.7 mmHg (35.0-48.0); ABG PH (T) 7.319 (7.340-7.440); ABG PO2 (T) 102.8 mmHg (75.0-100.0); ALLEN'S TEST POSITIVE; FCOHb 0.3 % (0.0-3.9); FHHb 2.1 % (0.0-5.0); FMetHb 0.3 % (0.0-1.5); FO2Hb 97.3 % (94-97); MODE MASK - BIPAP
[2023-09-30] MEDS: risperiDONE 0.5mg tablet PO SCH (20:00)
[2023-09-30] MEDS: acetaZOLAMIDE IV 500mg inj IV SCH (21:39)
[2023-10-01] VITALS (35 sets, daily range): BP systolic 93–143; BP diastolic 47–88; PULSE 64–113; RESP 16–32; TEMP 98–98.8; O2SAT 84–100
[2023-10-01 06:24] LABS: ALBUMIN 1.9 G/DL (3.4-5.0); ANION GAP -1 (8-16); BLOOD UREA NITROGEN 27 MG/DL (7-18); BUN/CREATININE RATIO 57.4 (10.0-20.0); CALCIUM 8.9 MG/DL (8.5-10.1); CHLORIDE 98 MMOL/L (99-107); CREATININE 0.47 MG/DL (0.60-1.10); GLUCOSE 103 MG/DL (70-104); POTASSIUM 4.3 MMOL/L (3.5-5.1); SODIUM 141 MMOL/L (135-145); eCRCL 155 ML/MIN; eGFR > 90 ML/MIN
[2023-10-01 06:32] LABS: BASOPHILS % (AUTO) 0.1 % (0-1); EOSINOPHILS # (AUTO) 0.1 X10'3 (0-0.9); EOSINOPHILS % (AUTO) 0.8 % (0-6); HEMATOCRIT 29.7 % (42.0-52.0); HEMOGLOBIN 9.4 g/dl (14.0-17.9); LYMPHOCYTES # (AUTO) 0.9 X10'3 (1.1-4.8); LYMPHOCYTES % (AUTO) 6.5 % (21-51); MEAN CORPUSCULAR HEMOGLOBIN 28.7 PG (27.0-31.0); MEAN CORPUSCULAR HGB CONC 31.6 g/dL (33.0-36.5); MEAN CORPUSCULAR VOLUME 90.7 FL (78-98); MEAN PLATELET VOLUME 7.2 FL (7.4-10.4); MONOCYTES # (AUTO) 0.8 X10'3 (0-0.9); MONOCYTES % (AUTO) 5.6 % (2-12); NEUTROPHILS # (AUTO) 11.8 X10'3 (1.8-7.7); PLATELET COUNT 425 X10'3 (140-440); RED BLOOD COUNT 3.27 X10'6 (4.70-6.10); RED CELL DISTRIBUTION WIDTH 15.8 % (11.5-14.5); WHITE BLOOD COUNT 13.6 X10'3 (4.5-11.0)
[2023-10-01 06:35] LABS: TOTAL CARBON DIOXIDE 43.7 MMOL/L (24-32)
[2023-10-01 07:52] LABS: ABG BASE EXCESS 16.9 mmol/L (-2.0-2.0); ABG HCO3 45.9 mmol/L (22.0-26.0); ABG OXYGEN SATURATION 99.3 % (94-97); ABG PCO2 (T) 86.3 mmHg (35.0-48.0); ABG PH (T) 7.344 (7.340-7.440); ABG PO2 (T) 162.4 mmHg (75.0-100.0); ALLEN'S TEST POSITIVE; FCOHb 0.1 % (0.0-3.9); FHHb 0.7 % (0.0-5.0); FMetHb 0.3 % (0.0-1.5); FO2Hb 98.9 % (94-97); MODE MASK - BIPAP; RESPIRATORY RATE 20 b/min; TOTAL HEMOGLOBIN 10.6 G/dl (14.0-17.9)
[2023-10-01 11:52] LABS: ABG BASE EXCESS 8.2 mmol/L (-2.0-2.0); ABG HCO3 37.2 mmol/L (22.0-26.0); ABG OXYGEN SATURATION 89.2 % (94-97); ABG PH (T) 7.285 (7.340-7.440); ABG PO2 (T) 60.3 mmHg (75.0-100.0); ALLEN'S TEST POSITIVE; FCOHb 0.3 % (0.0-3.9); FHHb 10.7 % (0.0-5.0); FMetHb 0.3 % (0.0-1.5); FO2Hb 88.7 % (94-97); MODE MASK - BIPAP; RESPIRATORY RATE 20 b/min; TOTAL HEMOGLOBIN 10.9 G/dl (14.0-17.9)
[2023-10-01] MEDS: propofol 1000mg/100ml bottle 100 ML IV ONE (11:54)
[2023-10-01] MEDS ORDERED: sod chloride 0.9% 10ml flush syringe IV ONE (12:00)
[2023-10-01] MEDS: propofol 1000mg/100ml bottle 100 ML IV SCH (12:05)
[2023-10-01] MEDS ORDERED: propofol 10mg/ml 20ml vial IV PRN (12:05)
[2023-10-01] MEDS: NORepinephrine 8mg/ 250ml NS 250 ML IV ONE (12:15)
[2023-10-01] MEDS: NORepinephrine 8mg/ 250ml NS 250 ML IV SCH (12:20)
[2023-10-01 12:45] LABS: ABG BASE EXCESS 14.2 mmol/L (-2.0-2.0); ABG PCO2 (T) 65.9 mmHg (35.0-48.0); ABG PH (T) 7.413 (7.340-7.440); ALLEN'S TEST POSITIVE; FCOHb 0.1 % (0.0-3.9); FMetHb 0.3 % (0.0-1.5); FO2Hb 97.6 % (94-97); MODE VENT - PRVC; PATIENT TEMPERATURE 37.1; PEEP 10 cm H2O; RESPIRATORY RATE 18 b/min; TIDAL VOLUME 500 mL; TOTAL HEMOGLOBIN 10.1 G/dl (14.0-17.9)
[2023-10-01] MEDS: POTASSIUM CHLORIDE 20 MEQ/15 ML oral solution PO SCH (13:38)
[2023-10-01] MEDS: methylPREDNISolone sod succ 125mg/2ml vial IV SCH (14:00)
[2023-10-01] MEDS: traZODone 50mg tablet PO PRN (19:10)
[2023-10-02] VITALS (48 sets, daily range): BP systolic 90–167; BP diastolic 49–92; PULSE 49–99; RESP 10–27; TEMP 98.8; O2SAT 58–99
[2023-10-02 01:36] LABS: BASOPHILS % (AUTO) 0 % (0-1); EOSINOPHILS % (AUTO) 0 % (0-6); HEMATOCRIT 26.5 % (42.0-52.0); HEMOGLOBIN 8.6 g/dl (14.0-17.9); LYMPHOCYTES # (AUTO) 0.7 X10'3 (1.1-4.8); LYMPHOCYTES % (AUTO) 5.7 % (21-51); MEAN CORPUSCULAR HGB CONC 32.3 g/dL (33.0-36.5); MEAN CORPUSCULAR VOLUME 89.6 FL (78-98); MEAN PLATELET VOLUME 7.5 FL (7.4-10.4); MONOCYTES # (AUTO) 0.2 X10'3 (0-0.9); NEUTROPHILS # (AUTO) 10.7 X10'3 (1.8-7.7); NEUTROPHILS % (AUTO) 92.3 % (42-75); PLATELET COUNT 361 X10'3 (140-440); RED BLOOD COUNT 2.96 X10'6 (4.70-6.10); RED CELL DISTRIBUTION WIDTH 16.1 % (11.5-14.5); WHITE BLOOD COUNT 11.6 X10'3 (4.5-11.0)
[2023-10-02 01:58] LABS: ALANINE AMINOTRANSFERASE 10 U/L (12-78); ALBUMIN 1.7 G/DL (3.4-5.0); ALBUMIN/GLOBULIN RATIO 0.4 (1.1-1.5); ALKALINE PHOSPHATASE 74 IU/L (46-116); ANION GAP 6 (8-16); ASPARTATE AMINO TRANSFERASE 7 U/L (10-37); BILIRUBIN,TOTAL 0.2 MG/DL (0.1-1.0); BLOOD UREA NITROGEN 27 MG/DL (7-18); BUN/CREATININE RATIO 45.8 (10.0-20.0); CALCIUM 8.5 MG/DL (8.5-10.1); CHLORIDE 101 MMOL/L (99-107); CREATININE 0.59 MG/DL (0.60-1.10); GLUCOSE 171 MG/DL (70-104); POTASSIUM 3.1 MMOL/L (3.5-5.1); SODIUM 141 MMOL/L (135-145); TOTAL CARBON DIOXIDE 34.2 MMOL/L (24-32); TOTAL PROTEIN 6.2 G/DL (6.4-8.2); TRIGLYCERIDES 61 MG/DL (20-135); eCRCL 122 ML/MIN; eGFR > 90 ML/MIN
[2023-10-02] MEDS ORDERED: magnesium 4gm in 100ml NS 100 ML IV PRN (02:40)
[2023-10-02] MEDS ORDERED: magnesium 2GM in 50ml NS 50 ML IV PRN (02:40)
[2023-10-02] MEDS ORDERED: potassium Cl 40MEQ/270ML bag 270 ML IV PRN (02:40)
[2023-10-02] MEDS ORDERED: potassium Cl 20 mEq SR tablet PO PRN ×2 (02:40)
[2023-10-02 03:16] LABS: ABG BASE EXCESS 8.3 mmol/L (-2.0-2.0); ABG OXYGEN SATURATION 99.5 % (94-97); ABG PCO2 (T) 40.9 mmHg (35.0-48.0); ABG PH (T) 7.511 (7.340-7.440); ABG PO2 (T) 147.7 mmHg (75.0-100.0); ALLEN'S TEST Modified; FCOHb 0.2 % (0.0-3.9); FHHb 0.5 % (0.0-5.0); FMetHb 0.3 % (0.0-1.5); PATIENT TEMPERATURE 37.1; PEEP 10 cm H2O; RESPIRATORY RATE 18 b/min; TIDAL VOLUME 500 mL; TOTAL HEMOGLOBIN 8.2 G/dl (14.0-17.9)
[2023-10-02 08:20] LABS: POTASSIUM 3.3 MMOL/L (3.5-5.1)
[2023-10-02] MEDS: K and/or MAG REPLACEMENT MC SCH (08:31)
[2023-10-02] MEDS: potassium Cl 40MEQ/1/2NS 520ml 520 ML IV PRN (08:32)
[2023-10-02] MEDS ORDERED: traZODone 50mg tablet OGT PRN (11:05)
[2023-10-02] MEDS ORDERED: fentaNYL/PF 50MCG/1 ML 2ML syringe ONE (13:42)
[2023-10-02] MEDS ORDERED: MIDAZolam 1 MG/ML 5ML VIAL ONE (13:42)
[2023-10-02] MEDS ORDERED: LIDOcaine 2% Viscous 15ml cup ONE (13:42)
[2023-10-02] MEDS ORDERED: glucagon, human recombinant 1mg kit ONE (13:43)
[2023-10-02 13:56] LABS: PREALBUMIN 10.9 MG/DL (19-36)
[2023-10-02] MEDS: mineral oil/petrolatum ophthal oint EACHEYE SCH (14:00)
[2023-10-02] MEDS: ceFAZolin/D5W- 1GM premix 50 ML IV ONE (16:43)
[2023-10-02] MEDS: methylPREDNISolone sod succ/PF 40mg inj. IV SCH (16:43)
[2023-10-02] MEDS: risperiDONE 0.5mg tablet OGT SCH (20:00)
[2023-10-02] MEDS ORDERED: glucagon, human recombinant 1mg kit SUBCUT PRN (23:55)
[2023-10-02] MEDS ORDERED: dextrose 50%-water 50ml dispensing syringe IV PRN ×2 (23:55)
[2023-10-02] MEDS ORDERED: DEXTROSE 15 GM of carb/4 tabs (each vial/BOTTLE has 4 tablets) PO PRN ×2 (23:55)
[2023-10-03] VITALS (47 sets, daily range): BP systolic 105–144; BP diastolic 59–89; PULSE 46–100; RESP 11–23; O2SAT 94–99
[2023-10-03] MEDS: insulin regular, human U-100 3ml vial - multi-dose SQ SCH (02:21)
[2023-10-03 02:32] LABS: BASOPHILS % (AUTO) 0.3 % (0-1); EOSINOPHILS % (AUTO) 0 % (0-6); HEMATOCRIT 26.3 % (42.0-52.0); HEMOGLOBIN 8.5 g/dl (14.0-17.9); LYMPHOCYTES # (AUTO) 0.7 X10'3 (1.1-4.8); LYMPHOCYTES % (AUTO) 4.2 % (21-51); MEAN CORPUSCULAR HGB CONC 32.5 g/dL (33.0-36.5); MEAN CORPUSCULAR VOLUME 89.3 FL (78-98); MEAN PLATELET VOLUME 7.6 FL (7.4-10.4); MONOCYTES # (AUTO) 0.4 X10'3 (0-0.9); MONOCYTES % (AUTO) 2.2 % (2-12); NEUTROPHILS % (AUTO) 93.3 % (42-75); PLATELET COUNT 352 X10'3 (140-440); RED BLOOD COUNT 2.94 X10'6 (4.70-6.10); WHITE BLOOD COUNT 16.1 X10'3 (4.5-11.0)
[2023-10-03 02:43] LABS: ALBUMIN 1.8 G/DL (3.4-5.0); ANION GAP 3 (8-16); BLOOD UREA NITROGEN 28 MG/DL (7-18); BUN/CREATININE RATIO 50.9 (10.0-20.0); CALCIUM 8.6 MG/DL (8.5-10.1); CHLORIDE 108 MMOL/L (99-107); CREATININE 0.55 MG/DL (0.60-1.10); GLUCOSE 158 MG/DL (70-104); POTASSIUM 3.3 MMOL/L (3.5-5.1); SODIUM 143 MMOL/L (135-145); TOTAL CARBON DIOXIDE 32.3 MMOL/L (24-32); TRIGLYCERIDES 75 MG/DL (20-135); eCRCL 137 ML/MIN; eGFR > 90 ML/MIN
[2023-10-03 04:40] LABS: ABG BASE EXCESS 3.8 mmol/L (-2.0-2.0); ABG HCO3 28.2 mmol/L (22.0-26.0); ABG OXYGEN SATURATION 95.7 % (94-97); ABG PH (T) 7.454 (7.340-7.440); ABG PO2 (T) 74.8 mmHg (75.0-100.0); FHHb 4.3 % (0.0-5.0); FMetHb 0.3 % (0.0-1.5); FO2Hb 95.4 % (94-97); MODE CMV PRVC IT 0.9; PATIENT TEMPERATURE 36.6; PEEP 5 cm H2O; RESPIRATORY RATE 14 b/min; TIDAL VOLUME 450 mL; TOTAL HEMOGLOBIN 9.8 G/dl (14.0-17.9)
[2023-10-03] MEDS: lansoprazole 15mg solutab OGT SCH (09:21)
[2023-10-03] MEDS: ESCITALOPRAM 10 mg tablet 10 MG TABLET OGT SCH (09:22)
[2023-10-03] MEDS: buPROPion 75mg tablet OGT SCH (09:23)
[2023-10-04] VITALS (49 sets, daily range): BP systolic 101–153; BP diastolic 62–89; PULSE 51–91; RESP 10–20; O2SAT 89–100
[2023-10-04 01:48] LABS: ALBUMIN 1.8 G/DL (3.4-5.0); ANION GAP 6 (8-16); BLOOD UREA NITROGEN 29 MG/DL (7-18); CALCIUM 8.2 MG/DL (8.5-10.1); CHLORIDE 107 MMOL/L (99-107); CREATININE 0.42 MG/DL (0.60-1.10); GLUCOSE 165 MG/DL (70-104); POTASSIUM 3.6 MMOL/L (3.5-5.1); SODIUM 141 MMOL/L (135-145); TOTAL CARBON DIOXIDE 27.6 MMOL/L (24-32); eCRCL 180 ML/MIN; eGFR > 90 ML/MIN
[2023-10-04] MEDS: BUPIVAcaine/PF 2.5mg/ml (0.25%) 10ml vial ONE (09:42)
[2023-10-04] MEDS: LIDOcaine 1% 30ml preserv. free vial ONE (09:42)
[2023-10-04] MEDS ORDERED: sevoflurane 250ml liquid IH ONE (09:49)
[2023-10-04] MEDS ORDERED: fentaNYL/PF 50MCG/1 ML 2ML syringe ONE (09:58)
[2023-10-04] MEDS ORDERED: midazolam 1 mg/ML 2ml injection ONE (09:59)
[2023-10-04] MEDS ORDERED: propofol inj 20 ML IV ONE (10:00)
[2023-10-04] MEDS ORDERED: rocuronium 10mg/ml inj IV ONE (10:18)
[2023-10-04] MEDS ORDERED: ceFAZolin 1000mg inj ONE ×2 (10:26)
[2023-10-04] MEDS: traZODone 50mg tablet PEG PRN (21:05)
[2023-10-05] VITALS (38 sets, daily range): BP systolic 101–143; BP diastolic 56–97; PULSE 58–93; RESP 9–34; O2SAT 90–97
[2023-10-05 03:49] LABS: ALBUMIN 1.7 G/DL (3.4-5.0); ANION GAP 2 (8-16); BLOOD UREA NITROGEN 25 MG/DL (7-18); BUN/CREATININE RATIO 65.8 (10.0-20.0); CALCIUM 7.7 MG/DL (8.5-10.1); CHLORIDE 106 MMOL/L (99-107); CREATININE 0.38 MG/DL (0.60-1.10); GLUCOSE 143 MG/DL (70-104); POTASSIUM 3.8 MMOL/L (3.5-5.1); SODIUM 140 MMOL/L (135-145); TOTAL CARBON DIOXIDE 32.4 MMOL/L (24-32); eCRCL 199 ML/MIN; eGFR > 90 ML/MIN
[2023-10-05] MEDS: predniSONE 20 mg tablet PO SCH (09:20)
[2023-10-06] VITALS (44 sets, daily range): BP systolic 84–140; BP diastolic 52–85; PULSE 64–108; RESP 11–31; O2SAT 73–100
[2023-10-06 03:17] LABS: BASOPHILS % (AUTO) 0.2 % (0-1); EOSINOPHILS # (AUTO) 0.1 X10'3 (0-0.9); EOSINOPHILS % (AUTO) 0.6 % (0-6); HEMATOCRIT 26.8 % (42.0-52.0); HEMOGLOBIN 8.5 g/dl (14.0-17.9); LYMPHOCYTES # (AUTO) 2.3 X10'3 (1.1-4.8); LYMPHOCYTES % (AUTO) 14.9 % (21-51); MEAN CORPUSCULAR HEMOGLOBIN 28.4 PG (27.0-31.0); MEAN CORPUSCULAR HGB CONC 31.8 g/dL (33.0-36.5); MEAN CORPUSCULAR VOLUME 89.3 FL (78-98); MONOCYTES # (AUTO) 1.1 X10'3 (0-0.9); MONOCYTES % (AUTO) 7.6 % (2-12); NEUTROPHILS # (AUTO) 11.6 X10'3 (1.8-7.7); NEUTROPHILS % (AUTO) 76.7 % (42-75); PLATELET COUNT 222 X10'3 (140-440); RED BLOOD COUNT 3.01 X10'6 (4.70-6.10); WHITE BLOOD COUNT 15.2 X10'3 (4.5-11.0)
[2023-10-06 03:28] LABS: ALANINE AMINOTRANSFERASE 15 U/L (12-78); ALBUMIN 1.5 G/DL (3.4-5.0); ALBUMIN/GLOBULIN RATIO 0.4 (1.1-1.5); ALKALINE PHOSPHATASE 54 IU/L (46-116); ANION GAP 0 (8-16); ASPARTATE AMINO TRANSFERASE 6 U/L (10-37); BILIRUBIN,TOTAL 0.2 MG/DL (0.1-1.0); BLOOD UREA NITROGEN 26 MG/DL (7-18); BUN/CREATININE RATIO 72.2 (10.0-20.0); CALCIUM 7.6 MG/DL (8.5-10.1); CHLORIDE 104 MMOL/L (99-107); CREATININE 0.36 MG/DL (0.60-1.10); GLUCOSE 95 MG/DL (70-104); MAGNESIUM 1.8 MG/DL (1.5-2.4); PHOSPHORUS 2.4 MG/DL (2.3-4.5); POTASSIUM 3.7 MMOL/L (3.5-5.1); PREALBUMIN 19.7 MG/DL (19-36); SODIUM 140 MMOL/L (135-145); TOTAL CARBON DIOXIDE 35.7 MMOL/L (24-32); TOTAL PROTEIN 5.1 G/DL (6.4-8.2); eCRCL 210 ML/MIN; eGFR > 90 ML/MIN
[2023-10-06 03:40] LABS: TOTAL CELLS COUNTED 100
[2023-10-06 03:41] LABS: PLATELET ESTIMATE NORMAL
[2023-10-06 03:44] LABS: ELLIPTOCYTES FEW; HYPOCHROMASIA 1+; POIKILOCYTOSIS FEW; SCHISTOCYTES FEW; TARGET CELLS 1+
[2023-10-06] MEDS ORDERED: prednisone 10mg tablet PO SCH ×2 (08:30→09:19)
[2023-10-06] MEDS ORDERED: magnesium hydroxide 30ml (MOM) UD suspension PO PRN (09:00)
[2023-10-06] MEDS ORDERED: acetaminophen 325mg tablet PEG PRN (09:04)
[2023-10-06] MEDS ORDERED: DEXTROSE 15 GM of carb/4 tabs (each vial/BOTTLE has 4 tablets) PEG PRN ×4 (09:05→09:07)
[2023-10-06] MEDS ORDERED: prednisone 10mg tablet OGT SCH (09:19)
[2023-10-06] MEDS ORDERED: lactobacillus rhamnosus 10,000 MMU CELLS/CAPSULE PEG SCH (09:20)
[2023-10-06] MEDS: POTASSIUM CHLORIDE 20 MEQ/15 ML oral solution PEG ONE (09:33)
[2023-10-06] MEDS: lactobacillus rhamnosus 10,000 MMU CELLS/CAPSULE PEG ONE (09:33)
[2023-10-06] MEDS: risperiDONE 0.5mg tablet PEG ONE (09:34)
[2023-10-06] MEDS: lansoprazole 15mg solutab PEG ONE (09:34)
[2023-10-06] MEDS: cholecalciferol (vitamin D3) 1,000 unit (25mcg) tablet PEG ONE (09:34)
[2023-10-06] MEDS: buPROPion 75mg tablet PEG ONE (09:34)
[2023-10-06] MEDS: ESCITALOPRAM 10 mg tablet 10 MG TABLET PEG ONE (09:35)
[2023-10-06] MEDS: prednisone 10mg tablet GT ONE (11:55)
[2023-10-06] MEDS: magnesium hydroxide 30ml (MOM) UD suspension PEG PRN (12:01)
[2023-10-06 12:59] LABS: HIV ANTIBODY 1&2 RAPID NON-REACTIVE (Neg)
[2023-10-06] MEDS: bisacodyl 10mg suppository rectal RC PRN (15:02)
[2023-10-06] MEDS: risperiDONE 0.5mg tablet PEG SCH (21:07)
[2023-10-06] MEDS: traZODone 50mg tablet PEG PRN (21:08)
[2023-10-07] VITALS (40 sets, daily range): BP systolic 81–126; BP diastolic 46–78; PULSE 64–101; RESP 10–33; O2SAT 92–100
[2023-10-07 06:11] LABS: BASOPHILS % (AUTO) 0.1 % (0-1); EOSINOPHILS # (AUTO) 0.2 X10'3 (0-0.9); EOSINOPHILS % (AUTO) 1.4 % (0-6); HEMATOCRIT 28.4 % (42.0-52.0); HEMOGLOBIN 9.2 g/dl (14.0-17.9); LYMPHOCYTES # (AUTO) 1.7 X10'3 (1.1-4.8); MEAN CORPUSCULAR HEMOGLOBIN 28.5 PG (27.0-31.0); MEAN CORPUSCULAR HGB CONC 32.3 g/dL (33.0-36.5); MEAN CORPUSCULAR VOLUME 88.2 FL (78-98); MEAN PLATELET VOLUME 8.5 FL (7.4-10.4); MONOCYTES # (AUTO) 0.8 X10'3 (0-0.9); MONOCYTES % (AUTO) 6.1 % (2-12); NEUTROPHILS # (AUTO) 10.3 X10'3 (1.8-7.7); NEUTROPHILS % (AUTO) 79.4 % (42-75); PLATELET COUNT 195 X10'3 (140-440); RED BLOOD COUNT 3.23 X10'6 (4.70-6.10); RED CELL DISTRIBUTION WIDTH 16.4 % (11.5-14.5)
[2023-10-07 06:25] LABS: ALANINE AMINOTRANSFERASE 16 U/L (12-78); ALBUMIN 1.6 G/DL (3.4-5.0); ALBUMIN/GLOBULIN RATIO 0.4 (1.1-1.5); ALKALINE PHOSPHATASE 61 IU/L (46-116); ANION GAP -3 (8-16); ASPARTATE AMINO TRANSFERASE 19 U/L (10-37); BILIRUBIN,TOTAL 0.3 MG/DL (0.1-1.0); BLOOD UREA NITROGEN 25 MG/DL (7-18); BUN/CREATININE RATIO 67.6 (10.0-20.0); CALCIUM 7.9 MG/DL (8.5-10.1); CHLORIDE 103 MMOL/L (99-107); CREATININE 0.37 MG/DL (0.60-1.10); GLUCOSE 107 MG/DL (70-104); PHOSPHORUS 3.5 MG/DL (2.3-4.5); POTASSIUM 4.2 MMOL/L (3.5-5.1); SODIUM 139 MMOL/L (135-145); TOTAL CARBON DIOXIDE 38.7 MMOL/L (24-32); TOTAL PROTEIN 5.3 G/DL (6.4-8.2); eCRCL 204 ML/MIN; eGFR > 90 ML/MIN
[2023-10-07 06:50] LABS: ABG BASE EXCESS 10.3 mmol/L (-2.0-2.0); ABG HCO3 35.3 mmol/L (22.0-26.0); ABG OXYGEN SATURATION 94.4 % (94-97); ABG PCO2 (T) 51.2 mmHg (35.0-48.0); ABG PH (T) 7.458 (7.340-7.440); ABG PO2 (T) 70.1 mmHg (75.0-100.0); ALLEN'S TEST POSITIVE; FCOHb 0.2 % (0.0-3.9); FHHb 5.6 % (0.0-5.0); FMetHb 0.3 % (0.0-1.5); FO2Hb 93.9 % (94-97); MODE CPAP; PATIENT TEMPERATURE 37.6; PEEP 5 cm H2O; TOTAL HEMOGLOBIN 9.7 G/dl (14.0-17.9)
[2023-10-07] MEDS: POTASSIUM CHLORIDE 20 MEQ/15 ML oral solution PEG SCH (07:53)
[2023-10-07] MEDS: lansoprazole 15mg solutab PEG SCH (07:54)
[2023-10-07] MEDS: ESCITALOPRAM 10 mg tablet 10 MG TABLET PEG SCH (07:54)
[2023-10-07] MEDS: buPROPion 75mg tablet PEG SCH (07:55)
[2023-10-07] MEDS: cholecalciferol (vitamin D3) 1,000 unit (25mcg) tablet PEG SCH (07:55)
[2023-10-07] MEDS: prednisone 10mg tablet PEG SCH (07:57)
[2023-10-07] MEDS: acetaminophen 325mg/10.15ml oral unit dose solution PEG PRN (21:29)
[2023-10-08] VITALS (29 sets, daily range): BP systolic 82–121; BP diastolic 41–81; PULSE 68–96; RESP 12–27; O2SAT 94–99
[2023-10-08 03:11] LABS: BASOPHILS # (AUTO) 0.1 X10'3 (0-0.2); BASOPHILS % (AUTO) 0.6 % (0-1); EOSINOPHILS # (AUTO) 0.2 X10'3 (0-0.9); EOSINOPHILS % (AUTO) 1.8 % (0-6); HEMATOCRIT 25.4 % (42.0-52.0); HEMOGLOBIN 8.4 g/dl (14.0-17.9); LYMPHOCYTES # (AUTO) 1.8 X10'3 (1.1-4.8); MEAN CORPUSCULAR HEMOGLOBIN 29.1 PG (27.0-31.0); MEAN CORPUSCULAR HGB CONC 33.1 g/dL (33.0-36.5); MEAN CORPUSCULAR VOLUME 87.9 FL (78-98); MEAN PLATELET VOLUME 7.9 FL (7.4-10.4); MONOCYTES # (AUTO) 0.5 X10'3 (0-0.9); NEUTROPHILS # (AUTO) 6.6 X10'3 (1.8-7.7); NEUTROPHILS % (AUTO) 72.6 % (42-75); PLATELET COUNT 177 X10'3 (140-440); RED BLOOD COUNT 2.89 X10'6 (4.70-6.10); RED CELL DISTRIBUTION WIDTH 16.1 % (11.5-14.5); WHITE BLOOD COUNT 9.1 X10'3 (4.5-11.0)
[2023-10-08 05:02] LABS: ALANINE AMINOTRANSFERASE 16 U/L (12-78); ALBUMIN 1.7 G/DL (3.4-5.0); ALBUMIN/GLOBULIN RATIO 0.5 (1.1-1.5); ALKALINE PHOSPHATASE 56 IU/L (46-116); ANION GAP -1 (8-16); ASPARTATE AMINO TRANSFERASE 12 U/L (10-37); BILIRUBIN,TOTAL 0.2 MG/DL (0.1-1.0); BLOOD UREA NITROGEN 25 MG/DL (7-18); BUN/CREATININE RATIO 58.1 (10.0-20.0); CALCIUM 7.9 MG/DL (8.5-10.1); CHLORIDE 101 MMOL/L (99-107); CREATININE 0.43 MG/DL (0.60-1.10); GLUCOSE 114 MG/DL (70-104); MAGNESIUM 1.9 MG/DL (1.5-2.4); PHOSPHORUS 3.9 MG/DL (2.3-4.5); POTASSIUM 3.9 MMOL/L (3.5-5.1); SODIUM 138 MMOL/L (135-145); TOTAL CARBON DIOXIDE 37.9 MMOL/L (24-32); eCRCL 176 ML/MIN; eGFR > 90 ML/MIN
== END 2023-10-08 18:14 | DRG 5 ==
LOC: ER 12:45 → ED HOLD 14:05 → PCU 3S 19:45 → CICU 2S 09-11 08:06 → PCU 3S 09-29 16:09 → CICU 2S 10-01 11:21
PROVIDERS: ADMIT Internal Medicine; ATTEND Internal Medicine
PROC: 5A09357 Assistance with Respiratory Ventilation, Less than 24 Consecutive Hours, Continuous Positive Airway Pressure (ICD-10-PCS; 2023-09-10)
PROC: 0B9D8ZX Drainage of Right Middle Lung Lobe, Via Natural or Artificial Opening Endoscopic, Diagnostic (ICD-10-PCS; 2023-09-10)
PROC: 02HV33Z Insertion of Infusion Device into Superior Vena Cava, Percutaneous Approach (ICD-10-PCS; 2023-09-16)
PROC: 30233N1 Transfusion of Nonautologous Red Blood Cells into Peripheral Vein, Percutaneous Approach (ICD-10-PCS; 2023-09-19)
PROC: 5A0935A Assistance with Respiratory Ventilation, Less than 24 Consecutive Hours, High Flow/Velocity Cannula (ICD-10-PCS; 2023-09-25)
PROC: 5A0935A Assistance with Respiratory Ventilation, Less than 24 Consecutive Hours, High Flow/Velocity Cannula (ICD-10-PCS; 2023-09-26)
PROC: 5A09357 Assistance with Respiratory Ventilation, Less than 24 Consecutive Hours, Continuous Positive Airway Pressure (ICD-10-PCS; 2023-09-26)
PROC: 5A0935A Assistance with Respiratory Ventilation, Less than 24 Consecutive Hours, High Flow/Velocity Cannula (ICD-10-PCS; 2023-09-27)
PROC: 5A09357 Assistance with Respiratory Ventilation, Less than 24 Consecutive Hours, Continuous Positive Airway Pressure (ICD-10-PCS; 2023-09-27)
PROC: 5A0945A Assistance with Respiratory Ventilation, 24-96 Consecutive Hours, High Flow/Velocity Cannula (ICD-10-PCS; 2023-09-28)
PROC: 5A09357 Assistance with Respiratory Ventilation, Less than 24 Consecutive Hours, Continuous Positive Airway Pressure (ICD-10-PCS; 2023-09-28)
PROC: 5A0935A Assistance with Respiratory Ventilation, Less than 24 Consecutive Hours, High Flow/Velocity Cannula (ICD-10-PCS; 2023-09-30)
PROC: 5A09357 Assistance with Respiratory Ventilation, Less than 24 Consecutive Hours, Continuous Positive Airway Pressure (ICD-10-PCS; 2023-09-30)
PROC: 5A0935A Assistance with Respiratory Ventilation, Less than 24 Consecutive Hours, High Flow/Velocity Cannula (ICD-10-PCS; 2023-10-01)
PROC: 5A09357 Assistance with Respiratory Ventilation, Less than 24 Consecutive Hours, Continuous Positive Airway Pressure (ICD-10-PCS; 2023-10-01)
PROC: 0DH68UZ Insertion of Feeding Device into Stomach, Via Natural or Artificial Opening Endoscopic (ICD-10-PCS; principal; 2023-10-02)
PROC: 0BH17EZ Insertion of Endotracheal Airway into Trachea, Via Natural or Artificial Opening (ICD-10-PCS; 2023-10-02)
PROC: 0B110F4 Bypass Trachea to Cutaneous with Tracheostomy Device, Open Approach (ICD-10-PCS; 2023-10-04)
PROC: 5A1955Z Respiratory Ventilation, Greater than 96 Consecutive Hours (ICD-10-PCS; 2023-10-04)
DX: A41.9 Sepsis, unspecified organism (principal); R65.21 Severe sepsis with septic shock; J14 Pneumonia due to Hemophilus influenzae; J13 Pneumonia due to Streptococcus pneumoniae; E87.3 Alkalosis; E46 Unspecified protein-calorie malnutrition; J96.21 Acute and chronic respiratory failure with hypoxia; D62 Acute posthemorrhagic anemia; J44.0 Chronic obstructive pulmonary disease with (acute) lower respiratory infection; B95.3 Streptococcus pneumoniae as the cause of diseases classified elsewhere; J96.22 Acute and chronic respiratory failure with hypercapnia; K92.2 Gastrointestinal hemorrhage, unspecified; R13.12 Dysphagia, oropharyngeal phase; J90 Pleural effusion, not elsewhere classified; F17.200 Nicotine dependence, unspecified, uncomplicated; Z93.1 Gastrostomy status; Z87.01 Personal history of pneumonia (recurrent); Z78.9 Other specified health status; Z78.1 Physical restraint status; Z68.20 Body mass index [BMI] 20.0-20.9, adult
CPT/HCPCS: 31624; 31645; 36415; 36430; 36569; 36600; 43246; 71045; 71250; 76942; 80048; 80053; 82803; 82948; 83036; 83605; 83735; 83880; 84100; 84132; 84134; 84478; 84484; 85007; 85018; 85025; 85027; 85379; 86480; 86703; 86885; 86900; 86901; 86920; 87040; 87070; 87077; 87186; 87502; 87503; 92508; 92616; 93005; 93306; 94002; 94003; 94640; 94660; 94664; 94668; 94760; 97110; 97116; 97161; 97530; 99152; 99285; A4215; A4333; A4615; A4618; A4623; A4624; A5200; A6209; A6213; A6250; A6258; A6402; A6449; A6590; A7000; A7015; A7521; A9900; B4087; C1751; C1758; C9113; G0378; J0690; J0696; J1120; J1610; J1644; J1650; J1815; J1940; J1956; J2020; J2185; J2250; J2704; J2919; J2930; J3010; J3480; J3490; J7030; J7040; J7120; J7512; P9016; P9045

== ENCOUNTER 2024-01-22 14:14 | Inpatient (IN) | payer MEDICAID ==
[~2024-01-22] VITALS: Ht 177.8 cm; Wt 61.8 kg
[2024-01-22] VITALS (8 sets, daily range): BP systolic 107; BP diastolic 72; PULSE 81–116; RESP 14–22; TEMP 97.9; O2SAT 92–98
[~2024-01-22 14:14] MED LIST changes: +ALB0.5UD IH; -ALBU2.5V7 NEB; -IPRA3AMP9 NEB; -LEVO-65 PO; -METH4TAB81 PO; -PANT20TA18 PO; -etomidate 2mg/ml inj. ONE
[2024-01-22 15:13] LABS: BASOPHILS % (AUTO) 0.2 % (0-1); EOSINOPHILS # (AUTO) 0.1 X10'3 (0-0.9); EOSINOPHILS % (AUTO) 0.8 % (0-6); HEMATOCRIT 35.6 % (42.0-52.0); HEMOGLOBIN 11.3 g/dl (14.0-17.9); LYMPHOCYTES # (AUTO) 0.7 X10'3 (1.1-4.8); MEAN CORPUSCULAR HEMOGLOBIN 28.5 PG (27.0-31.0); MEAN CORPUSCULAR HGB CONC 31.9 g/dL (33.0-36.5); MEAN CORPUSCULAR VOLUME 89.6 FL (78-98); MEAN PLATELET VOLUME 8.4 FL (7.4-10.4); MONOCYTES # (AUTO) 0.5 X10'3 (0-0.9); MONOCYTES % (AUTO) 7.4 % (2-12); NEUTROPHILS # (AUTO) 5.9 X10'3 (1.8-7.7); NEUTROPHILS % (AUTO) 81.6 % (42-75); PLATELET COUNT 277 X10'3 (140-440); RED BLOOD COUNT 3.97 X10'6 (4.70-6.10); RED CELL DISTRIBUTION WIDTH 17.4 % (11.5-14.5); WHITE BLOOD COUNT 7.2 X10'3 (4.5-11.0)
[2024-01-22 15:22] LABS: ALBUMIN 2.6 G/DL (3.4-5.0); ANION GAP 0 (8-16); BLOOD UREA NITROGEN 10 MG/DL (7-18); BUN/CREATININE RATIO 11.1 (10.0-20.0); CALCIUM 9.2 MG/DL (8.5-10.1); CHLORIDE 100 MMOL/L (99-107); GLUCOSE 123 MG/DL (70-104); SODIUM 140 MMOL/L (135-145); TOTAL CARBON DIOXIDE 39.7 MMOL/L (24-32); eCRCL 105 ML/MIN; eGFR > 90 ML/MIN
[2024-01-22] MEDS: piperacillin/tazo 3.375gm/50ml 50 ML IV ONE (15:40)
[2024-01-22 15:49] LABS: ABG BASE EXCESS 13.6 mmol/L (-2.0-3.0); ABG HCO3 43.1 mmol/L (21.0-28.0); ABG PCO2 (T) 87.8 mmHg (35.0-48.0); ABG PO2 (T) 109.9 mmHg (83.0-108.0); ALLEN'S TEST POSITIVE; FCOHb 0.6 % (0.5-1.5); FMetHb 0.1 % (0.0-1.5); FO2Hb 97.3 % (94.0-98.0); MODE MASK - BIPAP; PATIENT TEMPERATURE 37.4; RESPIRATORY RATE 12 b/min; TOTAL HEMOGLOBIN 11.5 G/dl (13.5-17.5)
[2024-01-22] MEDS ORDERED: morphine 2 MG/ML inj. syringe IV PRN ×2 (15:55)
[2024-01-22] MEDS ORDERED: ondansetron 4mg rapidly disintigrating tab PO PRN (15:55)
[2024-01-22] MEDS ORDERED: diphenhydrAMINE 25mg capsule PO PRN (15:55)
[2024-01-22] MEDS ORDERED: HYDROcodone/acetaminophen 10/325mg tab PO PRN (15:55)
[2024-01-22] MEDS ORDERED: magnesium sulf-water 2g/50mL 50 ML IV PRN (15:55)
[2024-01-22] MEDS ORDERED: acetaminophen 325mg tablet PO PRN ×2 (15:55)
[2024-01-22] MEDS ORDERED: mag hydrox/Alum hydrox/simeth 30ml oral suspension PO PRN (15:55)
[2024-01-22] MEDS ORDERED: magnesium Cl slow-release 64mg tablet PO PRN (15:55)
[2024-01-22] MEDS ORDERED: ipratropium/albuterol 3ml nebule NEB PRN (15:55)
[2024-01-22] MEDS ORDERED: potassium Cl 20 mEq SR tablet PO PRN ×2 (15:55)
[2024-01-22] MEDS ORDERED: bisacodyl 10mg suppository rectal RC PRN (15:55)
[2024-01-22] MEDS ORDERED: ondansetron/PF 4mg/2ml inj IV PRN (15:55)
[2024-01-22] MEDS ORDERED: magnesium sulf-water 4G/100mL 100 ML IV PRN (15:55)
[2024-01-22] MEDS ORDERED: potassium Cl 40MEQ/1/2NS 520ml 520 ML IV PRN (15:55)
[2024-01-22] MEDS ORDERED: HYDROcodone/acetaminophen 5mg/325mg tablet PO PRN (15:55)
[2024-01-22] MEDS ORDERED: acetaminophen 650mg rectal suppository RC PRN (15:55)
[2024-01-22] MEDS ORDERED: magnesium hydroxide 30ml (MOM) UD suspension PO PRN (15:55)
[2024-01-22] MEDS: piperacillin/tazo 3.375gm/50ml 50 ML IV SCH (16:00)
[2024-01-22] MEDS: normal saline 1000ML IV soln IVB ONE ×2 (16:21→16:31)
[2024-01-22] MEDS: normal saline 1000ml 1,000 ML IV SCH (16:22)
[2024-01-22 16:34] LABS: HEMOGLOBIN A1C 5.2 % (4.5-6.2)
[2024-01-22] MEDS: methylPREDNISolone sod succ 125mg/2ml vial IV SCH (16:37)
[2024-01-22] MEDS: azithromycin/NS 500mg/250ml 250 ML IV SCH (16:42)
[2024-01-22] MEDS ORDERED: BACI28.42 TOP (18:37)
[2024-01-22] MEDS ORDERED: GUAI200T5 PO (18:37)
[2024-01-22] MEDS ORDERED: MOME13HF11 INH (18:37)
[2024-01-22] MEDS ORDERED: PANT40TA54 PO (18:37)
[2024-01-22] MEDS ORDERED: ALBU18HF2 INH (18:37)
[2024-01-22] MEDS ORDERED: CHOL100012 PO (18:37)
[2024-01-22] MEDS ORDERED: RISP0.5T74 PO (18:37)
[2024-01-22 19:30] LABS: BILIRUBIN,URINE NEGATIVE (Neg); CLARITY,URINE CLOUDY (Clear); COLOR,URINE YELLOW (Yellow); GLUCOSE, URINE NEGATIVE (Neg); KETONES,URINE NEGATIVE (Neg); LEUKOCYTE ESTERASE ,URINE NEGATIVE (Neg); NITRITES, URINE NEGATIVE (Neg); OCCULT BLOOD,URINE LARGE (Neg); PROTEIN,URINE 100 mg/dl (Neg); UROBILINOGEN,URINE 0.2 E.U/dL (0.2-1.0)
[2024-01-22 19:40] LABS: UA COLLECTION TYPE NON-SPECIFIED
[2024-01-22 19:46] LABS: BACTERIA,URINE 1+ /HPF (Neg); MUCUS STRANDS FEW /LPF (Neg); SQUAMOUS EPITHELIAL CELL,UR FEW /LPF (FEW); TRANSITIONAL EPI CELLS,URINE FEW /HPF
[2024-01-22 19:47] LABS: AMORPHOUS URATES 1+; HYALINE CASTS 0-3 /LPF (NEGATIVE)
[2024-01-22] MEDS: docusate sod 100mg capsule PO SCH (20:00)
[2024-01-22] MEDS: heparin, porcine 5000 units/ml vial SQ SCH (20:00)
[2024-01-22] MEDS: K and/or MAG REPLACEMENT MC SCH (20:00)
[2024-01-22] MEDS ORDERED: ipratropium/albuterol 3ml nebule NEB SCH (20:00)
[2024-01-22] MEDS: ipratropium/albuterol 3ml nebule NEB SCH (21:02)
[2024-01-23] VITALS (18 sets, daily range): BP systolic 102–128; BP diastolic 64–72; PULSE 70–107; RESP 12–20; TEMP 96.8–97.8; O2SAT 87–97
[2024-01-23] MEDS: risperiDONE 0.5mg tablet PO SCH (00:03)
[2024-01-23 02:40] LABS: ABG BASE EXCESS 6.4 mmol/L (-2.0-3.0); ABG HCO3 34.1 mmol/L (21.0-28.0); ABG OXYGEN SATURATION 94.9 % (94.0-98.0); ABG PCO2 (T) 70.5 mmHg (35.0-48.0); ABG PH (T) 7.302 (7.350-7.450); ABG PO2 (T) 78.4 mmHg (83.0-108.0); ALLEN'S TEST POSITIVE; FCOHb 0.1 % (0.5-1.5); FHHb 5.1 % (0.0-5.0); FO2Hb 94.8 % (94.0-98.0); MODE MASK - BIPAP; RESPIRATORY RATE 12 b/min; TOTAL HEMOGLOBIN 8.6 G/dl (13.5-17.5)
[2024-01-23 06:04] LABS: ANION GAP 2 (8-16); BILIRUBIN,TOTAL 0.2 MG/DL (0.1-1.0); BLOOD UREA NITROGEN 10 MG/DL (7-18); BUN/CREATININE RATIO 15.2 (10.0-20.0); CALCIUM 8.6 MG/DL (8.5-10.1); CHLORIDE 104 MMOL/L (99-107); CREATININE 0.66 MG/DL (0.60-1.10); GLUCOSE 127 MG/DL (70-104); PHOSPHORUS 4.2 MG/DL (2.3-4.5); POTASSIUM 4.5 MMOL/L (3.5-5.1); SODIUM 141 MMOL/L (135-145); TOTAL CARBON DIOXIDE 34.7 MMOL/L (24-32); TOTAL PROTEIN 6.7 G/DL (6.4-8.2); eCRCL 143 ML/MIN; eGFR > 90 ML/MIN
[2024-01-23 06:05] LABS: ALANINE AMINOTRANSFERASE 9 U/L (12-78); ALBUMIN/GLOBULIN RATIO 0.4 (1.1-1.5); ALKALINE PHOSPHATASE 73 IU/L (46-116); ASPARTATE AMINO TRANSFERASE 13 U/L (10-37); BASOPHILS % (AUTO) 0.1 % (0-1); CHOL/HDL RATIO 3.3 (0.00-4.99); CHOLESTEROL 143 MG/DL (0-200); EOSINOPHILS % (AUTO) 0 % (0-6); HDL CHOLESTEROL 44 MG/DL (35-60); HEMATOCRIT 33.2 % (42.0-52.0); HEMOGLOBIN 10.3 g/dl (14.0-17.9); LDL CHOLESTEROL 86 MG/DL (50-100); LYMPHOCYTES % (AUTO) 11.8 % (21-51); MEAN CORPUSCULAR HEMOGLOBIN 28.1 PG (27.0-31.0); MEAN CORPUSCULAR HGB CONC 31.2 g/dL (33.0-36.5); MEAN PLATELET VOLUME 8.4 FL (7.4-10.4); MONOCYTES # (AUTO) 0.1 X10'3 (0-0.9); MONOCYTES % (AUTO) 1.3 % (2-12); NEUTROPHILS # (AUTO) 7.4 X10'3 (1.8-7.7); NEUTROPHILS % (AUTO) 86.8 % (42-75); PLATELET COUNT 249 X10'3 (140-440); RED BLOOD COUNT 3.68 X10'6 (4.70-6.10); RED CELL DISTRIBUTION WIDTH 17.5 % (11.5-14.5); TRIGLYCERIDES 46 MG/DL (20-135); WHITE BLOOD COUNT 8.5 X10'3 (4.5-11.0)
[2024-01-23] MEDS: buPROPion 75mg tablet PO SCH (08:58)
[2024-01-23] MEDS: ESCITALOPRAM 10 mg tablet 10 MG TABLET PO SCH (08:59)
[2024-01-23] MEDS: pantoprazole 40mg Tablet.DR PO SCH (08:59)
[2024-01-23] MEDS: cholecalciferol (vitamin D3) 1,000 unit (25mcg) tablet PO SCH (08:59)
[2024-01-23] MEDS: benztropine 1mg tablet PO SCH (08:59)
[2024-01-24] VITALS (16 sets, daily range): BP systolic 119–145; BP diastolic 74–88; PULSE 61–81; RESP 11–20; TEMP 97.6–98.7; O2SAT 90–98
[2024-01-24 05:28] LABS: BASOPHILS # (AUTO) 0.1 X10'3 (0-0.2); BASOPHILS % (AUTO) 0.9 % (0-1); EOSINOPHILS # (AUTO) 0.1 X10'3 (0-0.9); EOSINOPHILS % (AUTO) 0.7 % (0-6); HEMATOCRIT 31.5 % (42.0-52.0); LYMPHOCYTES # (AUTO) 0.5 X10'3 (1.1-4.8); LYMPHOCYTES % (AUTO) 4.8 % (21-51); MEAN CORPUSCULAR HEMOGLOBIN 28.4 PG (27.0-31.0); MEAN CORPUSCULAR HGB CONC 31.7 g/dL (33.0-36.5); MEAN CORPUSCULAR VOLUME 89.6 FL (78-98); MEAN PLATELET VOLUME 8.4 FL (7.4-10.4); MONOCYTES # (AUTO) 0.2 X10'3 (0-0.9); MONOCYTES % (AUTO) 2.1 % (2-12); NEUTROPHILS # (AUTO) 9.5 X10'3 (1.8-7.7); NEUTROPHILS % (AUTO) 91.5 % (42-75); PLATELET COUNT 316 X10'3 (140-440); RED BLOOD COUNT 3.52 X10'6 (4.70-6.10); RED CELL DISTRIBUTION WIDTH 17.4 % (11.5-14.5); WHITE BLOOD COUNT 10.4 X10'3 (4.5-11.0)
[2024-01-24 05:44] LABS: ALANINE AMINOTRANSFERASE 10 U/L (12-78); ALBUMIN 1.9 G/DL (3.4-5.0); ALBUMIN/GLOBULIN RATIO 0.4 (1.1-1.5); ALKALINE PHOSPHATASE 77 IU/L (46-116); ANION GAP 7 (8-16); ASPARTATE AMINO TRANSFERASE 7 U/L (10-37); BILIRUBIN,TOTAL 0.1 MG/DL (0.1-1.0); BLOOD UREA NITROGEN 19 MG/DL (7-18); BUN/CREATININE RATIO 21.8 (10.0-20.0); CALCIUM 8.7 MG/DL (8.5-10.1); CHLORIDE 108 MMOL/L (99-107); CREATININE 0.87 MG/DL (0.60-1.10); GLUCOSE 146 MG/DL (70-104); MAGNESIUM 1.9 MG/DL (1.5-2.4); PHOSPHORUS 2.9 MG/DL (2.3-4.5); POTASSIUM 4.5 MMOL/L (3.5-5.1); SODIUM 149 MMOL/L (135-145); TOTAL CARBON DIOXIDE 34.2 MMOL/L (24-32); TOTAL PROTEIN 6.5 G/DL (6.4-8.2); eCRCL 108 ML/MIN; eGFR > 90 ML/MIN
[2024-01-24 07:25] LABS: ANISOCYTOSIS 1+; PLATELET ESTIMATE NORMAL; TOTAL CELLS COUNTED 100
[2024-01-24 07:26] LABS: HYPOCHROMASIA 1+; POLYCHROMASIA 1+
[2024-01-24] MEDS: azithromycin 250mg tablet PO SCH (08:14)
[2024-01-24] MEDS: traZODone 50mg tablet PO PRN (22:02)
[2024-01-25] VITALS (16 sets, daily range): BP systolic 120–158; BP diastolic 75–95; PULSE 54–91; RESP 15–22; TEMP 96.8–98.2; O2SAT 90–96
[2024-01-25 05:00] LABS: BASOPHILS % (AUTO) 0 % (0-1); EOSINOPHILS % (AUTO) 0.1 % (0-6); HEMATOCRIT 30.4 % (42.0-52.0); HEMOGLOBIN 9.6 g/dl (14.0-17.9); LYMPHOCYTES # (AUTO) 1.9 X10'3 (1.1-4.8); LYMPHOCYTES % (AUTO) 16.8 % (21-51); MEAN CORPUSCULAR HEMOGLOBIN 28.1 PG (27.0-31.0); MEAN CORPUSCULAR HGB CONC 31.5 g/dL (33.0-36.5); MEAN CORPUSCULAR VOLUME 89.2 FL (78-98); MEAN PLATELET VOLUME 7.9 FL (7.4-10.4); MONOCYTES # (AUTO) 0.9 X10'3 (0-0.9); MONOCYTES % (AUTO) 8.1 % (2-12); NEUTROPHILS # (AUTO) 8.3 X10'3 (1.8-7.7); PLATELET COUNT 345 X10'3 (140-440); RED CELL DISTRIBUTION WIDTH 17.4 % (11.5-14.5); WHITE BLOOD COUNT 11.1 X10'3 (4.5-11.0)
[2024-01-25 05:13] LABS: ALANINE AMINOTRANSFERASE 12 U/L (12-78); ALBUMIN 1.8 G/DL (3.4-5.0); ALBUMIN/GLOBULIN RATIO 0.4 (1.1-1.5); ALKALINE PHOSPHATASE 58 IU/L (46-116); ANION GAP 3 (8-16); ASPARTATE AMINO TRANSFERASE 6 U/L (10-37); BLOOD UREA NITROGEN 18 MG/DL (7-18); BUN/CREATININE RATIO 24.7 (10.0-20.0); CALCIUM 8.6 MG/DL (8.5-10.1); CHLORIDE 107 MMOL/L (99-107); CREATININE 0.73 MG/DL (0.60-1.10); GLUCOSE 89 MG/DL (70-104); MAGNESIUM 1.6 MG/DL (1.5-2.4); PHOSPHORUS 2.7 MG/DL (2.3-4.5); POTASSIUM 4.1 MMOL/L (3.5-5.1); SODIUM 146 MMOL/L (135-145); TOTAL CARBON DIOXIDE 35.7 MMOL/L (24-32); eCRCL 129 ML/MIN; eGFR > 90 ML/MIN
[2024-01-25 05:16] LABS: BILIRUBIN,TOTAL 0.1 MG/DL (0.1-1.0)
[2024-01-26] VITALS (16 sets, daily range): BP systolic 123–155; BP diastolic 66–94; PULSE 52–102; RESP 8–24; TEMP 96.7–98.6; O2SAT 88–94
[2024-01-26 05:55] LABS: BASOPHILS # (AUTO) 0.1 X10'3 (0-0.2); BASOPHILS % (AUTO) 0.4 % (0-1); EOSINOPHILS % (AUTO) 0 % (0-6); HEMATOCRIT 33.9 % (42.0-52.0); HEMOGLOBIN 10.5 g/dl (14.0-17.9); LYMPHOCYTES # (AUTO) 1.7 X10'3 (1.1-4.8); MEAN CORPUSCULAR HEMOGLOBIN 27.7 PG (27.0-31.0); MEAN CORPUSCULAR HGB CONC 31.1 g/dL (33.0-36.5); MEAN CORPUSCULAR VOLUME 89.1 FL (78-98); MEAN PLATELET VOLUME 8.2 FL (7.4-10.4); MONOCYTES # (AUTO) 0.7 X10'3 (0-0.9); MONOCYTES % (AUTO) 5.5 % (2-12); NEUTROPHILS # (AUTO) 10.3 X10'3 (1.8-7.7); NEUTROPHILS % (AUTO) 81.1 % (42-75); PLATELET COUNT 393 X10'3 (140-440); RED CELL DISTRIBUTION WIDTH 17.2 % (11.5-14.5); WHITE BLOOD COUNT 12.7 X10'3 (4.5-11.0)
[2024-01-26 06:07] LABS: ALANINE AMINOTRANSFERASE 16 U/L (12-78); ALBUMIN 2.1 G/DL (3.4-5.0); ALBUMIN/GLOBULIN RATIO 0.5 (1.1-1.5); ALKALINE PHOSPHATASE 60 IU/L (46-116); ANION GAP 1 (8-16); ASPARTATE AMINO TRANSFERASE 11 U/L (10-37); BILIRUBIN,TOTAL 0.2 MG/DL (0.1-1.0); BLOOD UREA NITROGEN 15 MG/DL (7-18); BUN/CREATININE RATIO 17.4 (10.0-20.0); CALCIUM 8.7 MG/DL (8.5-10.1); CHLORIDE 102 MMOL/L (99-107); CREATININE 0.86 MG/DL (0.60-1.10); GLUCOSE 122 MG/DL (70-104); MAGNESIUM 1.7 MG/DL (1.5-2.4); PHOSPHORUS 4.2 MG/DL (2.3-4.5); POTASSIUM 4.1 MMOL/L (3.5-5.1); SODIUM 141 MMOL/L (135-145); TOTAL CARBON DIOXIDE 37.7 MMOL/L (24-32); TOTAL PROTEIN 6.5 G/DL (6.4-8.2); eCRCL 109 ML/MIN; eGFR > 90 ML/MIN
[2024-01-26] MEDS ORDERED: LEVO750T68 PO (12:36)
[2024-01-26] MEDS ORDERED: PRED10TA23 PO (12:43)
[2024-01-27] VITALS (16 sets, daily range): BP systolic 109–138; BP diastolic 65–91; PULSE 50–94; RESP 14–20; TEMP 97.7–98.4; O2SAT 90–99
[2024-01-27 06:52] LABS: BASOPHILS % (AUTO) 0 % (0-1); EOSINOPHILS % (AUTO) 0 % (0-6); HEMATOCRIT 32.9 % (42.0-52.0); HEMOGLOBIN 10.5 g/dl (14.0-17.9); LYMPHOCYTES # (AUTO) 1.7 X10'3 (1.1-4.8); LYMPHOCYTES % (AUTO) 14.1 % (21-51); MEAN CORPUSCULAR HEMOGLOBIN 28.1 PG (27.0-31.0); MEAN CORPUSCULAR HGB CONC 31.8 g/dL (33.0-36.5); MEAN CORPUSCULAR VOLUME 88.4 FL (78-98); MEAN PLATELET VOLUME 8.2 FL (7.4-10.4); MONOCYTES # (AUTO) 0.9 X10'3 (0-0.9); MONOCYTES % (AUTO) 7.6 % (2-12); NEUTROPHILS # (AUTO) 9.6 X10'3 (1.8-7.7); NEUTROPHILS % (AUTO) 78.3 % (42-75); PLATELET COUNT 428 X10'3 (140-440); RED BLOOD COUNT 3.72 X10'6 (4.70-6.10); RED CELL DISTRIBUTION WIDTH 17.4 % (11.5-14.5); WHITE BLOOD COUNT 12.3 X10'3 (4.5-11.0)
[2024-01-27 07:30] LABS: ALANINE AMINOTRANSFERASE 15 U/L (12-78); ALBUMIN/GLOBULIN RATIO 0.5 (1.1-1.5); ALKALINE PHOSPHATASE 54 IU/L (46-116); ANION GAP 2 (8-16); ASPARTATE AMINO TRANSFERASE 12 U/L (10-37); BILIRUBIN,TOTAL 0.1 MG/DL (0.1-1.0); BLOOD UREA NITROGEN 16 MG/DL (7-18); BUN/CREATININE RATIO 17.8 (10.0-20.0); CALCIUM 8.8 MG/DL (8.5-10.1); CHLORIDE 102 MMOL/L (99-107); GLUCOSE 92 MG/DL (70-104); MAGNESIUM 1.7 MG/DL (1.5-2.4); PHOSPHORUS 5.2 MG/DL (2.3-4.5); POTASSIUM 4.1 MMOL/L (3.5-5.1); SODIUM 142 MMOL/L (135-145); TOTAL CARBON DIOXIDE 38.5 MMOL/L (24-32); TOTAL PROTEIN 6.2 G/DL (6.4-8.2); eCRCL 105 ML/MIN; eGFR > 90 ML/MIN
[2024-01-27] MEDS: ipratropium/albuterol 3ml nebule NEB SCH (15:54)
[2024-01-28] VITALS (19 sets, daily range): BP systolic 107–146; BP diastolic 66–82; PULSE 60–83; RESP 12–21; TEMP 97.9–99; O2SAT 90–98
[2024-01-29] VITALS (12 sets, daily range): BP systolic 123–155; BP diastolic 76–85; PULSE 60–94; RESP 12–20; TEMP 97.3–98.3; O2SAT 93–98
[2024-01-29] MEDS: levoFLOXACIN 750MG TABLET PO SCH (09:07)
== END 2024-01-29 16:47 | DRG 720 ==
LOC: ER 14:15 → ED HOLD 15:59 → PCU 3S 20:47
PROVIDERS: ADMIT Family Medicine; ATTEND Family Medicine
PROC: 5A09357 Assistance with Respiratory Ventilation, Less than 24 Consecutive Hours, Continuous Positive Airway Pressure (ICD-10-PCS; principal; 2024-01-22)
DX: A41.9 Sepsis, unspecified organism (principal); J96.01 Acute respiratory failure with hypoxia; E87.4 Mixed disorder of acid-base balance; J18.9 Pneumonia, unspecified organism; J44.0 Chronic obstructive pulmonary disease with (acute) lower respiratory infection; E88.09 Other disorders of plasma-protein metabolism, not elsewhere classified; J96.02 Acute respiratory failure with hypercapnia; J44.1 Chronic obstructive pulmonary disease with (acute) exacerbation; R73.9 Hyperglycemia, unspecified; D64.9 Anemia, unspecified; F41.9 Anxiety disorder, unspecified; F32.A Depression, unspecified
CPT/HCPCS: 36415; 36600; 71045; 80048; 80053; 80061; 81001; 82803; 83036; 83605; 83735; 84100; 84145; 85007; 85018; 85025; 87040; 87070; 87081; 87088; 92508; 92616; 93005; 94640; 94660; 94760; 96365; 97116; 97161; 97530; 99291; A4340; A4615; A6402; A6590; C1758; G0378; J0456; J1644; J2543; J2919; J7030; J7040

== ENCOUNTER 2024-02-04 20:18 | Inpatient (IN) | payer MEDICAID ==
[~2024-02-04] VITALS: Ht 177.8 cm; Wt 61.7 kg
[~2024-02-04 20:18] MED LIST changes: +ALBU18HF2 INH; +BACI28.42 TOP; +CHOL100012 PO; +GUAI200T5 PO; +LEVO750T68 PO; +MOME13HF11 INH; +PANT40TA54 PO; +PRED10TA23 PO; -RISP-31 PO; +RISP0.5T74 PO
[2024-02-04 20:37] VITALS: PULSE 117; RESP 27; O2SAT 93
[2024-02-04 20:45] LABS: BASOPHILS # (AUTO) 0.1 X10'3 (0-0.2); BASOPHILS % (AUTO) 0.2 % (0-1); EOSINOPHILS % (AUTO) 0.1 % (0-6); HEMATOCRIT 36.1 % (42.0-52.0); HEMOGLOBIN 11.3 g/dl (14.0-17.9); LYMPHOCYTES # (AUTO) 1.1 X10'3 (1.1-4.8); LYMPHOCYTES % (AUTO) 4.4 % (21-51); MEAN CORPUSCULAR HGB CONC 31.4 g/dL (33.0-36.5); MEAN CORPUSCULAR VOLUME 89.3 FL (78-98); MEAN PLATELET VOLUME 7.7 FL (7.4-10.4); MONOCYTES # (AUTO) 1.7 X10'3 (0-0.9); NEUTROPHILS # (AUTO) 21.5 X10'3 (1.8-7.7); NEUTROPHILS % (AUTO) 88.3 % (42-75); PLATELET COUNT 436 X10'3 (140-440); RED BLOOD COUNT 4.04 X10'6 (4.70-6.10); RED CELL DISTRIBUTION WIDTH 18.5 % (11.5-14.5); WHITE BLOOD COUNT 24.3 X10'3 (4.5-11.0)
[2024-02-04 20:49] LABS: D-DIMER 4.19 MG/L FEU (0-0.50)
[2024-02-04 21:01] LABS: ALBUMIN 2.7 G/DL (3.4-5.0); ANION GAP 4 (8-16); BLOOD UREA NITROGEN 22 MG/DL (7-18); BUN/CREATININE RATIO 27.2 (10.0-20.0); CALCIUM 8.9 MG/DL (8.5-10.1); CHLORIDE 101 MMOL/L (99-107); CREATININE 0.81 MG/DL (0.60-1.10); GLUCOSE 93 MG/DL (70-104); POTASSIUM 3.8 MMOL/L (3.5-5.1); PRO BRAIN NATRIURETIC PEPTIDE 227 PG/ML (0-125); SODIUM 141 MMOL/L (135-145); TOTAL CARBON DIOXIDE 36.1 MMOL/L (24-32); eCRCL 104 ML/MIN; eGFR > 90 ML/MIN
[2024-02-04] MEDS ORDERED: iohexol 350MG/ML 100ml bottle IV ONE (21:13)
[2024-02-04] MEDS: normal saline 1000ml 1,000 ML IV ONE (21:30)
[2024-02-04 21:44] VITALS: PULSE 117; RESP 27; O2SAT 93
[2024-02-04 22:11] VITALS: PULSE 117; RESP 27; O2SAT 93
[2024-02-04] MEDS: CefTRIAXone/D5W-Rocephin 1gm 50 ML IV ONE (22:24)
[2024-02-04] MEDS ORDERED: heparin 10,000 units/1 ML INJ IV ONE (22:40)
[2024-02-04 22:53] LABS: HEMOGLOBIN 10.3 g/dl (14.0-17.9); MEAN PLATELET VOLUME 8.5 FL (7.4-10.4)
[2024-02-04 23:03] LABS: APTT 23 SECONDS (22-32); PROTHROMBIN TIME 10.4 SECONDS (9.0-12.0)
[2024-02-04 23:06] LABS: BASOPHILS # (AUTO) 0.1 X10'3 (0-0.2); BASOPHILS % (AUTO) 0.4 % (0-1); EOSINOPHILS % (AUTO) 0.1 % (0-6); HEMATOCRIT 33.1 % (42.0-52.0); LYMPHOCYTES # (AUTO) 0.9 X10'3 (1.1-4.8); LYMPHOCYTES % (AUTO) 3.3 % (21-51); MEAN CORPUSCULAR HEMOGLOBIN 27.9 PG (27.0-31.0); MEAN CORPUSCULAR HGB CONC 31.3 g/dL (33.0-36.5); MEAN CORPUSCULAR VOLUME 89.4 FL (78-98); MONOCYTES % (AUTO) 7.6 % (2-12); NEUTROPHILS # (AUTO) 23.1 X10'3 (1.8-7.7); NEUTROPHILS % (AUTO) 88.6 % (42-75); PLATELET COUNT 414 X10'3 (140-440); RED CELL DISTRIBUTION WIDTH 18.6 % (11.5-14.5)
[2024-02-04 23:12] VITALS: PULSE 92; RESP 21; O2SAT 98
[2024-02-04 23:14] LABS: WHITE BLOOD COUNT 26.1 X10'3 (4.5-11.0)
[2024-02-04] MEDS: heparin 10,000 units/1 ML INJ IV ONE (23:24)
[2024-02-04] MEDS: heparin 25,000 UNIT/250ml bag 250 ML IV PRN (23:25)
[2024-02-04] MEDS ORDERED: potassium Cl 40MEQ/1/2NS 520ml 520 ML IV PRN (23:30)
[2024-02-04] MEDS ORDERED: magnesium sulf-water 4G/100mL 100 ML IV PRN (23:30)
[2024-02-04] MEDS ORDERED: mag hydrox/Alum hydrox/simeth 30ml oral suspension PO PRN (23:30)
[2024-02-04] MEDS ORDERED: magnesium hydroxide 30ml (MOM) UD suspension PO PRN (23:30)
[2024-02-04] MEDS ORDERED: magnesium sulf-water 2g/50mL 50 ML IV PRN (23:30)
[2024-02-04] MEDS ORDERED: acetaminophen 325mg tablet PO PRN (23:30)
[2024-02-04] MEDS ORDERED: potassium Cl 20 mEq SR tablet PO PRN ×2 (23:30)
[2024-02-04] MEDS ORDERED: magnesium Cl slow-release 64mg tablet PO PRN (23:30)
[2024-02-04] MEDS ORDERED: ondansetron/PF 4mg/2ml inj IV PRN (23:30)
[2024-02-04 23:51] LABS: MAGNESIUM 1.7 MG/DL (1.5-2.4); PHOSPHORUS 3.4 MG/DL (2.3-4.5)
[2024-02-05] VITALS (17 sets, daily range): BP systolic 121–142; BP diastolic 59–85; PULSE 72–111; RESP 10–20; TEMP 97.5–98; O2SAT 89–99
[2024-02-05] MEDS: MESSAGE TO NURSING IV ONE ×4 (00:01→20:50)
[2024-02-05] MEDS: methylPREDNISolone sod succ/PF 40mg inj. IV SCH ×2 (00:22→20:21)
[2024-02-05] MEDS: azithromycin/NS 500mg/250ml 250 ML IV ONE (00:24)
[2024-02-05] MEDS: piperacillin/tazo 3.375gm/50ml 50 ML IV SCH (00:29)
[2024-02-05 00:34] LABS: ANISOCYTOSIS 2+; PLATELET ESTIMATE NORMAL
[2024-02-05 07:12] LABS: BASOPHILS % (AUTO) 0.1 % (0-1); EOSINOPHILS % (AUTO) 0.1 % (0-6); HEMATOCRIT 31.6 % (42.0-52.0); HEMOGLOBIN 10.1 g/dl (14.0-17.9); LYMPHOCYTES # (AUTO) 0.7 X10'3 (1.1-4.8); LYMPHOCYTES % (AUTO) 2.6 % (21-51); MEAN CORPUSCULAR HEMOGLOBIN 28.6 PG (27.0-31.0); MEAN CORPUSCULAR VOLUME 89.3 FL (78-98); MEAN PLATELET VOLUME 7.9 FL (7.4-10.4); MONOCYTES # (AUTO) 0.2 X10'3 (0-0.9); MONOCYTES % (AUTO) 0.8 % (2-12); NEUTROPHILS # (AUTO) 25.6 X10'3 (1.8-7.7); NEUTROPHILS % (AUTO) 96.4 % (42-75); PLATELET COUNT 353 X10'3 (140-440); RED BLOOD COUNT 3.53 X10'6 (4.70-6.10); RED CELL DISTRIBUTION WIDTH 18.4 % (11.5-14.5)
[2024-02-05] MEDS: ipratropium/albuterol 3ml nebule NEB PRN (07:44)
[2024-02-05 07:55] LABS: ALANINE AMINOTRANSFERASE 17 U/L (12-78); ALBUMIN 2.2 G/DL (3.4-5.0); ALBUMIN/GLOBULIN RATIO 0.6 (1.1-1.5); ALKALINE PHOSPHATASE 62 IU/L (46-116); ANION GAP 4 (8-16); ASPARTATE AMINO TRANSFERASE 11 U/L (10-37); BILIRUBIN,TOTAL 0.2 MG/DL (0.1-1.0); BLOOD UREA NITROGEN 17 MG/DL (7-18); BUN/CREATININE RATIO 23.6 (10.0-20.0); CALCIUM 8.5 MG/DL (8.5-10.1); CHLORIDE 104 MMOL/L (99-107); CREATININE 0.72 MG/DL (0.60-1.10); GLUCOSE 128 MG/DL (70-104); POTASSIUM 4.2 MMOL/L (3.5-5.1); SODIUM 140 MMOL/L (135-145); TOTAL CARBON DIOXIDE 31.7 MMOL/L (24-32); TOTAL PROTEIN 6.2 G/DL (6.4-8.2); eCRCL 113 ML/MIN; eGFR > 90 ML/MIN
[2024-02-05] MEDS: K and/or MAG REPLACEMENT MC SCH (08:00)
[2024-02-05] MEDS ORDERED: ipratropium/albuterol 3ml nebule NEB PRN (08:10)
[2024-02-05] MEDS: ipratropium/albuterol 3ml nebule NEB SCH (08:10)
[2024-02-05] MEDS ORDERED: methylPREDNISolone sod succ/PF 40mg inj. IV SCH ×2 (08:10→13:00)
[2024-02-05 08:12] LABS: WHITE BLOOD COUNT 26.6 X10'3 (4.5-11.0)
[2024-02-05 08:17] LABS: ANISOCYTOSIS 2+; PLATELET ESTIMATE NORMAL; TOTAL CELLS COUNTED 100
[2024-02-05 08:43] LABS: ABG BASE EXCESS 8.1 mmol/L (-2.0-3.0); ABG HCO3 35.3 mmol/L (21.0-28.0); ABG OXYGEN SATURATION 93.6 % (94.0-98.0); ABG PCO2 (T) 62.4 mmHg (35.0-48.0); ABG PH (T) 7.368 (7.350-7.450); ABG PO2 (T) 69.3 mmHg (83.0-108.0); ALLEN'S TEST POSITIVE; FHHb 6.4 % (0.0-5.0); FLOW 4 L/min; FMetHb 0.1 % (0.0-1.5); FO2Hb 93.5 % (94.0-98.0); MODE NASAL CANNULA; PATIENT TEMPERATURE 36.5; TOTAL HEMOGLOBIN 11.2 G/dl (13.5-17.5)
[2024-02-05] MEDS: benztropine 1mg tablet PO SCH (08:51)
[2024-02-05] MEDS: pantoprazole 40mg Tablet.DR PO SCH (08:51)
[2024-02-05] MEDS: VANCOmycin 1250MG/NS 250ml Bag 250 ML IV SCH (15:25)
[2024-02-05] MEDS: azithromycin/NS 500mg/250ml 250 ML IV SCH (15:26)
[2024-02-05] MEDS: cefepime 2g/NS 100ml ADVANTAGE 100 ML IV SCH (16:49)
[2024-02-05] MEDS: guaiFENesin ER 600mg tablet PO SCH (20:22)
[2024-02-05] MEDS: risperiDONE 0.5mg tablet PO SCH (20:22)
[2024-02-05] MEDS: traZODone 50mg tablet PO PRN (21:33)
[2024-02-06] VITALS (16 sets, daily range): BP systolic 137–160; BP diastolic 77–100; PULSE 52–92; RESP 16–18; TEMP 97.2–98.5; O2SAT 73–98
[2024-02-06 01:39] LABS: BASOPHILS # (AUTO) 0.1 X10'3 (0-0.2); BASOPHILS % (AUTO) 0.6 % (0-1); EOSINOPHILS % (AUTO) 0 % (0-6); HEMATOCRIT 32.2 % (42.0-52.0); HEMOGLOBIN 10.1 g/dl (14.0-17.9); LYMPHOCYTES # (AUTO) 0.6 X10'3 (1.1-4.8); LYMPHOCYTES % (AUTO) 3.6 % (21-51); MEAN CORPUSCULAR HEMOGLOBIN 28.1 PG (27.0-31.0); MEAN CORPUSCULAR HGB CONC 31.4 g/dL (33.0-36.5); MEAN CORPUSCULAR VOLUME 89.5 FL (78-98); MEAN PLATELET VOLUME 7.9 FL (7.4-10.4); MONOCYTES # (AUTO) 0.3 X10'3 (0-0.9); MONOCYTES % (AUTO) 1.9 % (2-12); NEUTROPHILS # (AUTO) 16.7 X10'3 (1.8-7.7); NEUTROPHILS % (AUTO) 93.9 % (42-75); PLATELET COUNT 306 X10'3 (140-440); RED CELL DISTRIBUTION WIDTH 18.5 % (11.5-14.5); WHITE BLOOD COUNT 17.8 X10'3 (4.5-11.0)
[2024-02-06 01:53] LABS: ALANINE AMINOTRANSFERASE 13 U/L (12-78); ALBUMIN 2.2 G/DL (3.4-5.0); ALBUMIN/GLOBULIN RATIO 0.5 (1.1-1.5); ALKALINE PHOSPHATASE 57 IU/L (46-116); ANION GAP 5 (8-16); ASPARTATE AMINO TRANSFERASE 10 U/L (10-37); BILIRUBIN,TOTAL 0.2 MG/DL (0.1-1.0); BLOOD UREA NITROGEN 16 MG/DL (7-18); BUN/CREATININE RATIO 21.6 (10.0-20.0); CALCIUM 8.9 MG/DL (8.5-10.1); CHLORIDE 104 MMOL/L (99-107); CREATININE 0.74 MG/DL (0.60-1.10); GLUCOSE 143 MG/DL (70-104); POTASSIUM 4.3 MMOL/L (3.5-5.1); SODIUM 142 MMOL/L (135-145); TOTAL CARBON DIOXIDE 33.5 MMOL/L (24-32); TOTAL PROTEIN 6.5 G/DL (6.4-8.2); eCRCL 110 ML/MIN; eGFR > 90 ML/MIN
[2024-02-06] MEDS: MESSAGE TO NURSING IV ONE ×3 (02:29→16:18)
[2024-02-06] MEDS: cholecalciferol (vitamin D3) 1,000 unit (25mcg) tablet PO SCH (07:20)
[2024-02-06] MEDS: ESCITALOPRAM 10 mg tablet 10 MG TABLET PO SCH (07:20)
[2024-02-06] MEDS: buPROPion 75mg tablet PO SCH (07:20)
[2024-02-06] MEDS: heparin 10,000 units/1 ML INJ IV PRN (16:20)
[2024-02-06] MEDS: lactose-reduced food (Ensure High Protein) 237ml bottle PO SCH (17:30)
[2024-02-06] MEDS: methylPREDNISolone sod succ/PF 40mg inj. IV SCH (19:41)
[2024-02-06] MEDS: VANCOMYCIN LEVEL IV ONE (21:23)
[2024-02-07] VITALS (19 sets, daily range): BP systolic 113–158; BP diastolic 73–99; PULSE 55–111; RESP 15–21; TEMP 97.1–98.4; O2SAT 90–98
[2024-02-07] MEDS: MESSAGE TO NURSING IV ONE ×2 (01:32→08:30)
[2024-02-07 07:45] LABS: BASOPHILS % (AUTO) 0 % (0-1); EOSINOPHILS % (AUTO) 0 % (0-6); HEMOGLOBIN 11.3 g/dl (14.0-17.9); LYMPHOCYTES # (AUTO) 1.4 X10'3 (1.1-4.8); LYMPHOCYTES % (AUTO) 11.3 % (21-51); MEAN CORPUSCULAR HEMOGLOBIN 28.6 PG (27.0-31.0); MEAN CORPUSCULAR HGB CONC 32.3 g/dL (33.0-36.5); MEAN CORPUSCULAR VOLUME 88.6 FL (78-98); MEAN PLATELET VOLUME 8.2 FL (7.4-10.4); MONOCYTES # (AUTO) 1.1 X10'3 (0-0.9); MONOCYTES % (AUTO) 9.3 % (2-12); NEUTROPHILS # (AUTO) 9.7 X10'3 (1.8-7.7); NEUTROPHILS % (AUTO) 79.4 % (42-75); PLATELET COUNT 303 X10'3 (140-440); RED BLOOD COUNT 3.95 X10'6 (4.70-6.10); RED CELL DISTRIBUTION WIDTH 18.2 % (11.5-14.5); WHITE BLOOD COUNT 12.2 X10'3 (4.5-11.0)
[2024-02-07 08:09] LABS: ALANINE AMINOTRANSFERASE 16 U/L (12-78); ALBUMIN 2.3 G/DL (3.4-5.0); ALBUMIN/GLOBULIN RATIO 0.5 (1.1-1.5); ALKALINE PHOSPHATASE 60 IU/L (46-116); ANION GAP 3 (8-16); ASPARTATE AMINO TRANSFERASE 9 U/L (10-37); BILIRUBIN,TOTAL 0.2 MG/DL (0.1-1.0); BLOOD UREA NITROGEN 22 MG/DL (7-18); BUN/CREATININE RATIO 27.8 (10.0-20.0); CALCIUM 8.9 MG/DL (8.5-10.1); CHLORIDE 99 MMOL/L (99-107); CREATININE 0.79 MG/DL (0.60-1.10); GLUCOSE 91 MG/DL (70-104); POTASSIUM 4.1 MMOL/L (3.5-5.1); SODIUM 141 MMOL/L (135-145); TOTAL CARBON DIOXIDE 38.6 MMOL/L (24-32); TOTAL PROTEIN 6.7 G/DL (6.4-8.2); eCRCL 103 ML/MIN; eGFR > 90 ML/MIN
[2024-02-07] MEDS: ethambutol 400mg tablet PO SCH (08:39)
[2024-02-07] MEDS: apixaban 5mg tablet PO SCH (19:53)
[2024-02-08] VITALS (18 sets, daily range): BP systolic 112–151; BP diastolic 68–97; PULSE 72–93; RESP 8–20; TEMP 96.2–98.6; O2SAT 88–99
[2024-02-08 08:31] LABS: BASOPHILS % (AUTO) 0.4 % (0-1); EOSINOPHILS % (AUTO) 0 % (0-6); HEMATOCRIT 34.3 % (42.0-52.0); HEMOGLOBIN 11.1 g/dl (14.0-17.9); LYMPHOCYTES # (AUTO) 1.2 X10'3 (1.1-4.8); LYMPHOCYTES % (AUTO) 11.1 % (21-51); MEAN CORPUSCULAR HEMOGLOBIN 28.4 PG (27.0-31.0); MEAN CORPUSCULAR HGB CONC 32.3 g/dL (33.0-36.5); MEAN CORPUSCULAR VOLUME 88.1 FL (78-98); MEAN PLATELET VOLUME 8.3 FL (7.4-10.4); MONOCYTES # (AUTO) 0.9 X10'3 (0-0.9); MONOCYTES % (AUTO) 8.2 % (2-12); NEUTROPHILS # (AUTO) 8.6 X10'3 (1.8-7.7); NEUTROPHILS % (AUTO) 80.3 % (42-75); PLATELET COUNT 294 X10'3 (140-440); RED CELL DISTRIBUTION WIDTH 18.2 % (11.5-14.5); WHITE BLOOD COUNT 10.7 X10'3 (4.5-11.0)
[2024-02-08 08:44] LABS: ALANINE AMINOTRANSFERASE 14 U/L (12-78); ALBUMIN 2.2 G/DL (3.4-5.0); ALBUMIN/GLOBULIN RATIO 0.6 (1.1-1.5); ALKALINE PHOSPHATASE 59 IU/L (46-116); ANION GAP 0 (8-16); ASPARTATE AMINO TRANSFERASE 9 U/L (10-37); BILIRUBIN,TOTAL 0.3 MG/DL (0.1-1.0); BLOOD UREA NITROGEN 21 MG/DL (7-18); BUN/CREATININE RATIO 31.8 (10.0-20.0); CALCIUM 9.1 MG/DL (8.5-10.1); CHLORIDE 100 MMOL/L (99-107); CREATININE 0.66 MG/DL (0.60-1.10); GLUCOSE 81 MG/DL (70-104); POTASSIUM 4.2 MMOL/L (3.5-5.1); SODIUM 139 MMOL/L (135-145); TOTAL CARBON DIOXIDE 38.6 MMOL/L (24-32); TOTAL PROTEIN 6.2 G/DL (6.4-8.2); eCRCL 123 ML/MIN; eGFR > 90 ML/MIN
[2024-02-08] MEDS: apixaban 5mg tablet PO SCH ×2 (10:20→19:14)
[2024-02-08] MEDS: apixaban 5mg tablet PO ONE (11:16)
[2024-02-09] VITALS (17 sets, daily range): BP systolic 121–150; BP diastolic 81–86; PULSE 62–92; RESP 12–20; TEMP 98.2–99.9; O2SAT 92–98
[2024-02-09 07:22] LABS: BASOPHILS % (AUTO) 0.2 % (0-1); EOSINOPHILS % (AUTO) 0 % (0-6); HEMATOCRIT 32.7 % (42.0-52.0); HEMOGLOBIN 10.5 g/dl (14.0-17.9); LYMPHOCYTES # (AUTO) 1.5 X10'3 (1.1-4.8); LYMPHOCYTES % (AUTO) 15.1 % (21-51); MEAN CORPUSCULAR HEMOGLOBIN 28.6 PG (27.0-31.0); MEAN CORPUSCULAR HGB CONC 32.1 g/dL (33.0-36.5); MEAN CORPUSCULAR VOLUME 88.8 FL (78-98); MEAN PLATELET VOLUME 8.6 FL (7.4-10.4); MONOCYTES # (AUTO) 0.9 X10'3 (0-0.9); MONOCYTES % (AUTO) 9.3 % (2-12); NEUTROPHILS # (AUTO) 7.7 X10'3 (1.8-7.7); NEUTROPHILS % (AUTO) 75.4 % (42-75); PLATELET COUNT 275 X10'3 (140-440); RED BLOOD COUNT 3.68 X10'6 (4.70-6.10); RED CELL DISTRIBUTION WIDTH 17.9 % (11.5-14.5); WHITE BLOOD COUNT 10.2 X10'3 (4.5-11.0)
[2024-02-09 07:44] LABS: ALANINE AMINOTRANSFERASE 20 U/L (12-78); ALBUMIN 2.2 G/DL (3.4-5.0); ALBUMIN/GLOBULIN RATIO 0.6 (1.1-1.5); ALKALINE PHOSPHATASE 51 IU/L (46-116); ANION GAP 1 (8-16); ASPARTATE AMINO TRANSFERASE 10 U/L (10-37); BILIRUBIN,TOTAL 0.2 MG/DL (0.1-1.0); BLOOD UREA NITROGEN 26 MG/DL (7-18); BUN/CREATININE RATIO 36.6 (10.0-20.0); CALCIUM 8.9 MG/DL (8.5-10.1); CHLORIDE 100 MMOL/L (99-107); CREATININE 0.71 MG/DL (0.60-1.10); GLUCOSE 89 MG/DL (70-104); POTASSIUM 4.1 MMOL/L (3.5-5.1); SODIUM 139 MMOL/L (135-145); TOTAL CARBON DIOXIDE 38.5 MMOL/L (24-32); TOTAL PROTEIN 6.1 G/DL (6.4-8.2); eCRCL 115 ML/MIN; eGFR > 90 ML/MIN
[2024-02-09] MEDS: methylPREDNISolone sod succ/PF 40mg inj. IV ONE (12:55)
[2024-02-10] VITALS (16 sets, daily range): BP systolic 96–168; BP diastolic 63–97; PULSE 64–128; RESP 16–20; TEMP 97–99; O2SAT 90–95
[2024-02-11] VITALS (19 sets, daily range): BP systolic 90–129; BP diastolic 50–82; PULSE 56–105; RESP 14–18; TEMP 97.3–98.3; O2SAT 90–97
[2024-02-11] MEDS: VANCOMYCIN LEVEL IV ONE (08:30)
[2024-02-11 08:59] LABS: BASOPHILS % (AUTO) 0.2 % (0-1); EOSINOPHILS # (AUTO) 0.1 X10'3 (0-0.9); EOSINOPHILS % (AUTO) 0.6 % (0-6); HEMATOCRIT 33.7 % (42.0-52.0); HEMOGLOBIN 10.8 g/dl (14.0-17.9); LYMPHOCYTES # (AUTO) 1.9 X10'3 (1.1-4.8); LYMPHOCYTES % (AUTO) 15.1 % (21-51); MEAN CORPUSCULAR HEMOGLOBIN 28.3 PG (27.0-31.0); MEAN CORPUSCULAR VOLUME 88.4 FL (78-98); MEAN PLATELET VOLUME 8.3 FL (7.4-10.4); MONOCYTES # (AUTO) 0.5 X10'3 (0-0.9); MONOCYTES % (AUTO) 4.4 % (2-12); NEUTROPHILS % (AUTO) 79.7 % (42-75); PLATELET COUNT 272 X10'3 (140-440); RED BLOOD COUNT 3.81 X10'6 (4.70-6.10); RED CELL DISTRIBUTION WIDTH 18.4 % (11.5-14.5); WHITE BLOOD COUNT 12.5 X10'3 (4.5-11.0)
[2024-02-11 09:31] LABS: ALBUMIN 2.3 G/DL (3.4-5.0); ANION GAP 1 (8-16); BLOOD UREA NITROGEN 23 MG/DL (7-18); BUN/CREATININE RATIO 32.4 (10.0-20.0); CALCIUM 8.9 MG/DL (8.5-10.1); CHLORIDE 99 MMOL/L (99-107); CREATININE 0.71 MG/DL (0.60-1.10); GLUCOSE 88 MG/DL (70-104); POTASSIUM 4.4 MMOL/L (3.5-5.1); SODIUM 138 MMOL/L (135-145); TOTAL CARBON DIOXIDE 38.3 MMOL/L (24-32); VANCOMYCIN,TROUGH 22.2 ug/mL (10.0-20.0); eCRCL 115 ML/MIN; eGFR > 90 ML/MIN
[2024-02-11 11:52] LABS: BILIRUBIN,URINE NEGATIVE (Neg); CLARITY,URINE CLEAR (Clear); COLOR,URINE YELLOW (Yellow); GLUCOSE, URINE NEGATIVE (Neg); KETONES,URINE NEGATIVE (Neg); LEUKOCYTE ESTERASE ,URINE NEGATIVE (Neg); NITRITES, URINE NEGATIVE (Neg); OCCULT BLOOD,URINE SMALL (Neg); PROTEIN,URINE TRACE mg/dl (Neg); UROBILINOGEN,URINE 0.2 E.U/dL (0.2-1.0)
[2024-02-11 11:57] LABS: UA COLLECTION TYPE NON-SPECIFIED
[2024-02-11 11:58] LABS: SQUAMOUS EPITHELIAL CELL,UR FEW /LPF (FEW)
[2024-02-11 11:59] LABS: BACTERIA,URINE NONE SEEN /HPF (Neg); WBC,URINE 0-4 /HPF (0-4)
[2024-02-11] MEDS: vancomycin/NS 1 GM ADD-VANTAGE 250 ML IV SCH (20:40)
[2024-02-12] VITALS (8 sets, daily range): BP systolic 121; BP diastolic 59; PULSE 87–103; RESP 15–18; TEMP 99.7; O2SAT 91–96
[2024-02-12] MEDS ORDERED: [UNRECOGNIZED DRUG - CODE] PO (07:30)
[2024-02-12] MEDS ORDERED: APIX5TAB3 PO (07:30)
[2024-02-12 07:40] LABS: BASOPHILS % (AUTO) 0.2 % (0-1); EOSINOPHILS # (AUTO) 0.1 X10'3 (0-0.9); EOSINOPHILS % (AUTO) 1.3 % (0-6); HEMATOCRIT 32.7 % (42.0-52.0); HEMOGLOBIN 10.5 g/dl (14.0-17.9); LYMPHOCYTES # (AUTO) 1.4 X10'3 (1.1-4.8); LYMPHOCYTES % (AUTO) 15.7 % (21-51); MEAN CORPUSCULAR HEMOGLOBIN 28.4 PG (27.0-31.0); MEAN CORPUSCULAR HGB CONC 32.2 g/dL (33.0-36.5); MEAN CORPUSCULAR VOLUME 88.3 FL (78-98); MEAN PLATELET VOLUME 8.6 FL (7.4-10.4); MONOCYTES # (AUTO) 0.4 X10'3 (0-0.9); MONOCYTES % (AUTO) 4.3 % (2-12); NEUTROPHILS # (AUTO) 7.1 X10'3 (1.8-7.7); NEUTROPHILS % (AUTO) 78.5 % (42-75); PLATELET COUNT 263 X10'3 (140-440); RED CELL DISTRIBUTION WIDTH 18.2 % (11.5-14.5); WHITE BLOOD COUNT 9.1 X10'3 (4.5-11.0)
[2024-02-12 08:14] LABS: ALBUMIN 2.4 G/DL (3.4-5.0); ANION GAP 0 (8-16); BLOOD UREA NITROGEN 21 MG/DL (7-18); BUN/CREATININE RATIO 26.9 (10.0-20.0); CALCIUM 8.9 MG/DL (8.5-10.1); CHLORIDE 99 MMOL/L (99-107); CREATININE 0.78 MG/DL (0.60-1.10); GLUCOSE 86 MG/DL (70-104); POTASSIUM 4.6 MMOL/L (3.5-5.1); SODIUM 137 MMOL/L (135-145); TOTAL CARBON DIOXIDE 37.8 MMOL/L (24-32); eCRCL 104 ML/MIN; eGFR > 90 ML/MIN
[2024-02-12] MEDS ORDERED: AZIT250T83 PO (09:52)
[2024-02-13] MEDS ORDERED: VANCOMYCIN LEVEL IV ONE (08:30)
[2024-02-13] MEDS ORDERED: azithromycin 250mg tablet PO SCH (09:00)
[2024-02-13] MEDS ORDERED: ALBU2.5V10 INH (20:57)
[2024-02-13] MEDS ORDERED: AZIT-164 PO (20:57)
[2024-02-13] MEDS ORDERED: APIX5TAB3 PO (20:57)
[2024-02-13] MEDS ORDERED: [UNRECOGNIZED DRUG - CODE] PO (21:00)
[2024-02-15] MEDS ORDERED: apixaban 5mg tablet PO SCH (20:00)
== END 2024-02-12 13:07 | DRG 720 ==
LOC: ER 20:18 → ED HOLD 23:33 → PCU 3S 02-05 03:00
PROVIDERS: ADMIT Surgery Surgical Critical Care; ATTEND Family Medicine
PROC: B32T1ZZ Computerized Tomography (CT Scan) of Left Pulmonary Artery using Low Osmolar Contrast (ICD-10-PCS; principal; 2024-02-04)
PROC: B3201ZZ Computerized Tomography (CT Scan) of Thoracic Aorta using Low Osmolar Contrast (ICD-10-PCS; 2024-02-04)
PROC: B32S1ZZ Computerized Tomography (CT Scan) of Right Pulmonary Artery using Low Osmolar Contrast (ICD-10-PCS; 2024-02-04)
PROC: 5A09357 Assistance with Respiratory Ventilation, Less than 24 Consecutive Hours, Continuous Positive Airway Pressure (ICD-10-PCS; 2024-02-04)
DX: A41.9 Sepsis, unspecified organism (principal); I26.99 Other pulmonary embolism without acute cor pulmonale; J96.21 Acute and chronic respiratory failure with hypoxia; J18.9 Pneumonia, unspecified organism; J44.0 Chronic obstructive pulmonary disease with (acute) lower respiratory infection; E88.09 Other disorders of plasma-protein metabolism, not elsewhere classified; F29 Unspecified psychosis not due to a substance or known physiological condition; D64.9 Anemia, unspecified; D72.829 Elevated white blood cell count, unspecified; J44.1 Chronic obstructive pulmonary disease with (acute) exacerbation; R73.9 Hyperglycemia, unspecified; F41.9 Anxiety disorder, unspecified; Z79.899 Other long term (current) drug therapy; Z93.0 Tracheostomy status
CPT/HCPCS: 36415; 36600; 71045; 71275; 80048; 80053; 80202; 81001; 82803; 83605; 83735; 83880; 84100; 84145; 84484; 85007; 85008; 85018; 85025; 85379; 85610; 85730; 87040; 87070; 87081; 92508; 92616; 93005; 94640; 94660; 94760; 96365; 97110; 97116; 97161; 97530; 99291; A4615; A4620; G0378; J0456; J0692; J0696; J1644; J2543; J2919; J3370; J7030; J7040; Q9967

== ENCOUNTER 2024-02-13 17:22 | Inpatient (IN) | payer MEDICAID ==
[2024-02-13] VITALS (9 sets, daily range): PULSE 92–111; RESP 12–22; O2SAT 92–99
[~2024-02-13] VITALS: Ht 177.8 cm; Wt 58.2 kg
[~2024-02-13 17:22] MED LIST changes: +APIX5TAB3 PO; +AZIT250T83 PO; -LEVO750T68 PO; +[UNRECOGNIZED DRUG - CODE] PO
[2024-02-13 18:24] LABS: BASOPHILS # (AUTO) 0.1 X10'3 (0-0.2); BASOPHILS % (AUTO) 0.9 % (0-1); EOSINOPHILS # (AUTO) 0.2 X10'3 (0-0.9); EOSINOPHILS % (AUTO) 2.2 % (0-6); HEMATOCRIT 33.6 % (42.0-52.0); HEMOGLOBIN 10.7 g/dl (14.0-17.9); LYMPHOCYTES # (AUTO) 1.5 X10'3 (1.1-4.8); MEAN CORPUSCULAR HEMOGLOBIN 28.3 PG (27.0-31.0); MEAN CORPUSCULAR HGB CONC 31.7 g/dL (33.0-36.5); MEAN CORPUSCULAR VOLUME 89.3 FL (78-98); MEAN PLATELET VOLUME 8.6 FL (7.4-10.4); MONOCYTES # (AUTO) 0.3 X10'3 (0-0.9); MONOCYTES % (AUTO) 4.6 % (2-12); NEUTROPHILS % (AUTO) 71.3 % (42-75); PLATELET COUNT 246 X10'3 (140-440); RED BLOOD COUNT 3.76 X10'6 (4.70-6.10); RED CELL DISTRIBUTION WIDTH 18.4 % (11.5-14.5)
[2024-02-13] MEDS: ipratropium/albuterol 3ml nebule NEB ONE (18:29)
[2024-02-13 18:44] LABS: ALANINE AMINOTRANSFERASE 20 U/L (12-78); ALBUMIN 2.6 G/DL (3.4-5.0); ALBUMIN/GLOBULIN RATIO 0.6 (1.1-1.5); ALKALINE PHOSPHATASE 62 IU/L (46-116); ANION GAP -4 (8-16); ASPARTATE AMINO TRANSFERASE 15 U/L (10-37); BILIRUBIN,TOTAL 0.1 MG/DL (0.1-1.0); BLOOD UREA NITROGEN 19 MG/DL (7-18); BUN/CREATININE RATIO 25.3 (10.0-20.0); CALCIUM 8.9 MG/DL (8.5-10.1); CHLORIDE 99 MMOL/L (99-107); CREATININE 0.75 MG/DL (0.60-1.10); GLUCOSE 96 MG/DL (70-104); PRO BRAIN NATRIURETIC PEPTIDE 73 PG/ML (0-125); SODIUM 139 MMOL/L (135-145); TOTAL PROTEIN 6.9 G/DL (6.4-8.2); eCRCL 102 ML/MIN; eGFR > 90 ML/MIN
[2024-02-13 18:47] LABS: POTASSIUM 4.5 MMOL/L (3.5-5.1)
[2024-02-13 19:22] LABS: TOTAL CARBON DIOXIDE 43.5 MMOL/L (24-32)
[2024-02-13] MEDS: albuterol 2.5 MG/3 ML nebule NEB ONE (19:39)
[2024-02-13] MEDS: methylPREDNISolone sod succ/PF 40mg inj. IV SCH (19:45)
[2024-02-13] MEDS ORDERED: morphine 2 MG/ML inj. syringe IV PRN (20:55)
[2024-02-13] MEDS ORDERED: magnesium sulf-water 2g/50mL 50 ML IV PRN (20:55)
[2024-02-13] MEDS ORDERED: potassium Cl 40MEQ/1/2NS 520ml 520 ML IV PRN (20:55)
[2024-02-13] MEDS ORDERED: ondansetron/PF 4mg/2ml inj IV PRN (20:55)
[2024-02-13] MEDS ORDERED: magnesium Cl slow-release 64mg tablet PO PRN (20:55)
[2024-02-13] MEDS ORDERED: magnesium hydroxide 30ml (MOM) UD suspension PO PRN (20:55)
[2024-02-13] MEDS ORDERED: potassium Cl 20 mEq SR tablet PO PRN ×2 (20:55)
[2024-02-13] MEDS ORDERED: acetaminophen 325mg tablet PO PRN (20:55)
[2024-02-13] MEDS ORDERED: magnesium sulf-water 4G/100mL 100 ML IV PRN (20:55)
[2024-02-13] MEDS ORDERED: PERFLUTREN PROTEIN-A MICROSPHR (Optison) 0.22 MG/ML 3ML VIAL IV PRN (20:55)
[2024-02-13] MEDS ORDERED: mag hydrox/Alum hydrox/simeth 30ml oral suspension PO PRN (20:55)
[2024-02-13] MEDS ORDERED: APIX5TAB3 PO (20:57)
[2024-02-13] MEDS ORDERED: AZIT-164 PO (20:57)
[2024-02-13] MEDS ORDERED: ALBU2.5V10 INH (20:57)
[2024-02-13] MEDS ORDERED: [UNRECOGNIZED DRUG - CODE] PO (21:00)
[2024-02-13] MEDS ORDERED: ethambutol 400mg tablet PO SCH (21:35)
[2024-02-13] MEDS ORDERED: guaiFENesin 200 MG/10 ML oral syrup UD cup PO PRN (21:45)
[2024-02-13] MEDS ORDERED: albuterol 2.5 MG/3 ML nebule NEB PRN (23:00)
[2024-02-13] MEDS: ipratropium/albuterol 3ml nebule NEB SCH (23:39)
[2024-02-14] VITALS (21 sets, daily range): BP systolic 113–132; BP diastolic 68–93; PULSE 82–102; RESP 12–18; TEMP 96.7–98; O2SAT 89–97
[2024-02-14] MEDS: pantoprazole 40mg Tablet.DR PO SCH (00:33)
[2024-02-14] MEDS: levoFLOXACIN-Levaquin 750MG/D5 150 ML IV SCH (00:33)
[2024-02-14] MEDS: normal saline 1000ml 1,000 ML IV SCH (00:33)
[2024-02-14] MEDS: apixaban 5mg tablet PO ONE (02:50)
[2024-02-14 06:07] LABS: BASOPHILS % (AUTO) 0 % (0-1); EOSINOPHILS % (AUTO) 0 % (0-6); HEMATOCRIT 32.4 % (42.0-52.0); HEMOGLOBIN 10.4 g/dl (14.0-17.9); LYMPHOCYTES # (AUTO) 0.4 X10'3 (1.1-4.8); LYMPHOCYTES % (AUTO) 2.2 % (21-51); MEAN CORPUSCULAR HEMOGLOBIN 28.8 PG (27.0-31.0); MEAN CORPUSCULAR HGB CONC 32.2 g/dL (33.0-36.5); MEAN CORPUSCULAR VOLUME 89.6 FL (78-98); MEAN PLATELET VOLUME 8.5 FL (7.4-10.4); MONOCYTES # (AUTO) 0.1 X10'3 (0-0.9); MONOCYTES % (AUTO) 0.4 % (2-12); NEUTROPHILS # (AUTO) 16.8 X10'3 (1.8-7.7); NEUTROPHILS % (AUTO) 97.4 % (42-75); PLATELET COUNT 241 X10'3 (140-440); RED BLOOD COUNT 3.61 X10'6 (4.70-6.10); RED CELL DISTRIBUTION WIDTH 18.2 % (11.5-14.5); WHITE BLOOD COUNT 17.2 X10'3 (4.5-11.0)
[2024-02-14 07:12] LABS: ALANINE AMINOTRANSFERASE 18 U/L (12-78); ALBUMIN 2.4 G/DL (3.4-5.0); ALBUMIN/GLOBULIN RATIO 0.5 (1.1-1.5); ALKALINE PHOSPHATASE 73 IU/L (46-116); ANION GAP 1 (8-16); ASPARTATE AMINO TRANSFERASE 13 U/L (10-37); BILIRUBIN,TOTAL 0.4 MG/DL (0.1-1.0); BLOOD UREA NITROGEN 23 MG/DL (7-18); BUN/CREATININE RATIO 31.9 (10.0-20.0); CALCIUM 8.8 MG/DL (8.5-10.1); CHLORIDE 97 MMOL/L (99-107); CREATININE 0.72 MG/DL (0.60-1.10); GLUCOSE 145 MG/DL (70-104); MAGNESIUM 1.8 MG/DL (1.5-2.4); POTASSIUM 4.2 MMOL/L (3.5-5.1); SODIUM 137 MMOL/L (135-145); TOTAL CARBON DIOXIDE 39.1 MMOL/L (24-32); TOTAL PROTEIN 6.8 G/DL (6.4-8.2); eCRCL 107 ML/MIN; eGFR > 90 ML/MIN
[2024-02-14] MEDS: K and/or MAG REPLACEMENT MC SCH (08:00)
[2024-02-14 08:42] LABS: APTT 31 SECONDS (22-32); INR 1.1 INR; PROTHROMBIN TIME 11.2 SECONDS (9.0-12.0)
[2024-02-14] MEDS: risperiDONE 0.5mg tablet PO SCH (08:52)
[2024-02-14] MEDS: buPROPion 75mg tablet PO SCH (08:52)
[2024-02-14] MEDS: ESCITALOPRAM 10 mg tablet 10 MG TABLET PO SCH (08:52)
[2024-02-14] MEDS: docusate sod 100mg capsule PO SCH (08:52)
[2024-02-14] MEDS: apixaban 5mg tablet PO SCH (08:52)
[2024-02-14] MEDS: ethambutol 400mg tablet PO SCH (08:53)
[2024-02-14 09:37] LABS: D-DIMER 0.29 MG/L FEU (0-0.50)
[2024-02-14 10:17] LABS: BILIRUBIN,URINE NEGATIVE (Neg); CLARITY,URINE CLOUDY (Clear); COLOR,URINE YELLOW (Yellow); GLUCOSE, URINE NEGATIVE (Neg); KETONES,URINE NEGATIVE (Neg); LEUKOCYTE ESTERASE ,URINE NEGATIVE (Neg); NITRITES, URINE NEGATIVE (Neg); OCCULT BLOOD,URINE LARGE (Neg); PROTEIN,URINE 100 mg/dl (Neg); UROBILINOGEN,URINE 0.2 E.U/dL (0.2-1.0)
[2024-02-14 10:22] LABS: UA COLLECTION TYPE URINAL
[2024-02-14 10:23] LABS: MUCUS STRANDS FEW /LPF (Neg)
[2024-02-14 10:24] LABS: RBC,URINE 50-100 /HPF (0-2)
[2024-02-14 10:25] LABS: BACTERIA,URINE FEW /HPF (Neg); SQUAMOUS EPITHELIAL CELL,UR FEW /LPF (FEW); WBC,URINE 0-4 /HPF (0-4)
[2024-02-14] MEDS: methylPREDNISolone sod succ/PF 40mg inj. IV SCH (20:46)
[2024-02-15] VITALS (21 sets, daily range): BP systolic 141–162; BP diastolic 84–95; PULSE 72–101; RESP 15–48; TEMP 97.4–98; O2SAT 92–100
[2024-02-15 05:58] LABS: BASOPHILS % (AUTO) 0.1 % (0-1); EOSINOPHILS % (AUTO) 0 % (0-6); HEMATOCRIT 30.7 % (42.0-52.0); HEMOGLOBIN 9.8 g/dl (14.0-17.9); LYMPHOCYTES # (AUTO) 0.7 X10'3 (1.1-4.8); MEAN CORPUSCULAR HEMOGLOBIN 28.2 PG (27.0-31.0); MEAN CORPUSCULAR HGB CONC 31.9 g/dL (33.0-36.5); MEAN CORPUSCULAR VOLUME 88.3 FL (78-98); MEAN PLATELET VOLUME 8.3 FL (7.4-10.4); MONOCYTES # (AUTO) 0.2 X10'3 (0-0.9); MONOCYTES % (AUTO) 1.5 % (2-12); NEUTROPHILS # (AUTO) 10.2 X10'3 (1.8-7.7); NEUTROPHILS % (AUTO) 92.4 % (42-75); PLATELET COUNT 230 X10'3 (140-440); RED BLOOD COUNT 3.47 X10'6 (4.70-6.10); RED CELL DISTRIBUTION WIDTH 18.5 % (11.5-14.5)
[2024-02-15 06:30] LABS: ALANINE AMINOTRANSFERASE 15 U/L (12-78); ALBUMIN 2.3 G/DL (3.4-5.0); ALBUMIN/GLOBULIN RATIO 0.5 (1.1-1.5); ALKALINE PHOSPHATASE 62 IU/L (46-116); ANION GAP 0 (8-16); ASPARTATE AMINO TRANSFERASE 8 U/L (10-37); BILIRUBIN,TOTAL 0.1 MG/DL (0.1-1.0); BLOOD UREA NITROGEN 18 MG/DL (7-18); BUN/CREATININE RATIO 27.3 (10.0-20.0); CALCIUM 8.6 MG/DL (8.5-10.1); CHLORIDE 102 MMOL/L (99-107); CREATININE 0.66 MG/DL (0.60-1.10); GLUCOSE 129 MG/DL (70-104); MAGNESIUM 1.9 MG/DL (1.5-2.4); POTASSIUM 4.2 MMOL/L (3.5-5.1); SODIUM 140 MMOL/L (135-145); TOTAL CARBON DIOXIDE 37.8 MMOL/L (24-32); TOTAL PROTEIN 6.5 G/DL (6.4-8.2); eCRCL 116 ML/MIN; eGFR > 90 ML/MIN
[2024-02-15] MEDS ORDERED: ipratropium/albuterol 3ml nebule NEB SCH (10:15)
[2024-02-15] MEDS: methylPREDNISolone sod succ/PF 40mg inj. IV SCH (10:15)
[2024-02-15] MEDS ORDERED: ipratropium/albuterol 3ml nebule NEB PRN (10:15)
[2024-02-15] MEDS: azithromycin 250mg tablet PO SCH (12:07)
[2024-02-15] MEDS: cefepime 2g/NS 100ml ADVANTAGE 100 ML IV SCH (12:07)
[2024-02-15] MEDS: lactose-reduced food (Ensure Enlive) - 237ml bottle PO SCH (18:03)
[2024-02-15] MEDS: traZODone 50mg tablet PO PRN (20:42)
[2024-02-16] VITALS (18 sets, daily range): BP systolic 109–150; BP diastolic 68–83; PULSE 67–92; RESP 12–22; TEMP 97.6–99.8; O2SAT 91–99
[2024-02-16 06:59] LABS: ALANINE AMINOTRANSFERASE 23 U/L (12-78); ALBUMIN 2.2 G/DL (3.4-5.0); ALBUMIN/GLOBULIN RATIO 0.6 (1.1-1.5); ALKALINE PHOSPHATASE 54 IU/L (46-116); ANION GAP -3 (8-16); ASPARTATE AMINO TRANSFERASE 13 U/L (10-37); BILIRUBIN,TOTAL 0.1 MG/DL (0.1-1.0); BLOOD UREA NITROGEN 17 MG/DL (7-18); BUN/CREATININE RATIO 24.3 (10.0-20.0); CALCIUM 8.3 MG/DL (8.5-10.1); CHLORIDE 105 MMOL/L (99-107); GLUCOSE 90 MG/DL (70-104); MAGNESIUM 1.8 MG/DL (1.5-2.4); POTASSIUM 4.1 MMOL/L (3.5-5.1); SODIUM 140 MMOL/L (135-145); TOTAL CARBON DIOXIDE 37.6 MMOL/L (24-32); TOTAL PROTEIN 6.2 G/DL (6.4-8.2); eCRCL 110 ML/MIN; eGFR > 90 ML/MIN
[2024-02-16 07:10] LABS: BASOPHILS % (AUTO) 0.1 % (0-1); EOSINOPHILS % (AUTO) 0 % (0-6); HEMATOCRIT 32.1 % (42.0-52.0); HEMOGLOBIN 10.2 g/dl (14.0-17.9); LYMPHOCYTES # (AUTO) 1.5 X10'3 (1.1-4.8); LYMPHOCYTES % (AUTO) 14.9 % (21-51); MEAN CORPUSCULAR HEMOGLOBIN 28.3 PG (27.0-31.0); MEAN CORPUSCULAR HGB CONC 31.6 g/dL (33.0-36.5); MEAN CORPUSCULAR VOLUME 89.6 FL (78-98); MEAN PLATELET VOLUME 8.5 FL (7.4-10.4); MONOCYTES # (AUTO) 0.7 X10'3 (0-0.9); MONOCYTES % (AUTO) 6.7 % (2-12); NEUTROPHILS # (AUTO) 7.9 X10'3 (1.8-7.7); NEUTROPHILS % (AUTO) 78.3 % (42-75); PLATELET COUNT 234 X10'3 (140-440); RED BLOOD COUNT 3.59 X10'6 (4.70-6.10); RED CELL DISTRIBUTION WIDTH 18.4 % (11.5-14.5); WHITE BLOOD COUNT 10.1 X10'3 (4.5-11.0)
[2024-02-16] MEDS: morphine 2 MG/ML inj. syringe IV PRN (08:40)
[2024-02-16] MEDS: acetaZOLAMIDE IV 500mg inj IV ONE (09:16)
[2024-02-16] MEDS: VANCOMYCIN 1,500MG in normal saline IV soln 300 ML IV ONE (15:17)
[2024-02-16] MEDS: methylPREDNISolone sod succ/PF 40mg inj. IV SCH (20:09)
[2024-02-17] VITALS (22 sets, daily range): BP systolic 90–149; BP diastolic 58–100; PULSE 62–113; RESP 15–20; TEMP 97.6–101; O2SAT 90–96
[2024-02-17] MEDS: VANCOmycin 1250MG/NS 250ml Bag 250 ML IV SCH (00:03)
[2024-02-17 06:50] LABS: MONOCYTES # (AUTO) 0.9 X10'3 (0-0.9); NEUTROPHILS # (AUTO) 7.3 X10'3 (1.8-7.7)
[2024-02-17 06:52] LABS: BASOPHILS % (AUTO) 0.3 % (0-1); EOSINOPHILS % (AUTO) 0.4 % (0-6); HEMATOCRIT 33.8 % (42.0-52.0); LYMPHOCYTES # (AUTO) 1.6 X10'3 (1.1-4.8); LYMPHOCYTES % (AUTO) 16.2 % (21-51); MEAN CORPUSCULAR HEMOGLOBIN 29.1 PG (27.0-31.0); MEAN CORPUSCULAR HGB CONC 32.6 g/dL (33.0-36.5); MEAN CORPUSCULAR VOLUME 89.3 FL (78-98); MEAN PLATELET VOLUME 9.5 FL (7.4-10.4); MONOCYTES % (AUTO) 9.3 % (2-12); NEUTROPHILS % (AUTO) 73.8 % (42-75); PLATELET COUNT 251 X10'3 (140-440); RED BLOOD COUNT 3.78 X10'6 (4.70-6.10); RED CELL DISTRIBUTION WIDTH 18.5 % (11.5-14.5); WHITE BLOOD COUNT 9.9 X10'3 (4.5-11.0)
[2024-02-17] MEDS: acetaZOLAMIDE IV 500mg inj IV SCH (07:54)
[2024-02-17 08:23] LABS: ALANINE AMINOTRANSFERASE 25 U/L (12-78); ALBUMIN 2.2 G/DL (3.4-5.0); ALBUMIN/GLOBULIN RATIO 0.6 (1.1-1.5); ALKALINE PHOSPHATASE 56 IU/L (46-116); ANION GAP 0 (8-16); ASPARTATE AMINO TRANSFERASE 12 U/L (10-37); BILIRUBIN,TOTAL 0.2 MG/DL (0.1-1.0); BLOOD UREA NITROGEN 15 MG/DL (7-18); BUN/CREATININE RATIO 22.4 (10.0-20.0); CALCIUM 8.6 MG/DL (8.5-10.1); CHLORIDE 102 MMOL/L (99-107); CREATININE 0.67 MG/DL (0.60-1.10); GLUCOSE 85 MG/DL (70-104); POTASSIUM 3.8 MMOL/L (3.5-5.1); SODIUM 139 MMOL/L (135-145); TOTAL PROTEIN 6.2 G/DL (6.4-8.2); eCRCL 115 ML/MIN; eGFR > 90 ML/MIN
[2024-02-17] MEDS: VANCOMYCIN LEVEL IV ONE (23:23)
[2024-02-18] VITALS (20 sets, daily range): BP systolic 125–157; BP diastolic 80–95; PULSE 65–100; RESP 14–20; TEMP 96.9–98.4; O2SAT 90–96
[2024-02-18 07:58] LABS: EOSINOPHILS # (AUTO) 0.1 X10'3 (0-0.9); EOSINOPHILS % (AUTO) 0.6 % (0-6); HEMOGLOBIN 10.5 g/dl (14.0-17.9); NEUTROPHILS # (AUTO) 6.3 X10'3 (1.8-7.7); NEUTROPHILS % (AUTO) 67.9 % (42-75)
[2024-02-18 08:01] LABS: BASOPHILS % (AUTO) 0.4 % (0-1); HEMATOCRIT 32.5 % (42.0-52.0); LYMPHOCYTES # (AUTO) 2.1 X10'3 (1.1-4.8); MEAN CORPUSCULAR HEMOGLOBIN 28.9 PG (27.0-31.0); MEAN CORPUSCULAR HGB CONC 32.3 g/dL (33.0-36.5); MEAN CORPUSCULAR VOLUME 89.3 FL (78-98); MEAN PLATELET VOLUME 9.3 FL (7.4-10.4); MONOCYTES # (AUTO) 0.9 X10'3 (0-0.9); MONOCYTES % (AUTO) 9.1 % (2-12); PLATELET COUNT 232 X10'3 (140-440); RED BLOOD COUNT 3.64 X10'6 (4.70-6.10); WHITE BLOOD COUNT 9.3 X10'3 (4.5-11.0)
[2024-02-18 08:43] LABS: ALANINE AMINOTRANSFERASE 25 U/L (12-78); ALBUMIN 2.2 G/DL (3.4-5.0); ALBUMIN/GLOBULIN RATIO 0.6 (1.1-1.5); ALKALINE PHOSPHATASE 56 IU/L (46-116); ANION GAP 3 (8-16); ASPARTATE AMINO TRANSFERASE 13 U/L (10-37); BILIRUBIN,TOTAL 0.2 MG/DL (0.1-1.0); BLOOD UREA NITROGEN 20 MG/DL (7-18); BUN/CREATININE RATIO 31.3 (10.0-20.0); CALCIUM 8.6 MG/DL (8.5-10.1); CHLORIDE 102 MMOL/L (99-107); CREATININE 0.64 MG/DL (0.60-1.10); GLUCOSE 81 MG/DL (70-104); POTASSIUM 3.9 MMOL/L (3.5-5.1); SODIUM 139 MMOL/L (135-145); TOTAL CARBON DIOXIDE 34.2 MMOL/L (24-32); TOTAL PROTEIN 6.1 G/DL (6.4-8.2); eCRCL 120 ML/MIN; eGFR > 90 ML/MIN
[2024-02-18] MEDS: VANCOMYCIN 750MG IV in NS 250 ML IV SCH (11:31)
[2024-02-18] MEDS: lactose-reduced food (Ensure High Protein) 237ml bottle PO SCH (12:30)
[2024-02-19] VITALS (15 sets, daily range): BP systolic 120–148; BP diastolic 80–94; PULSE 67–106; RESP 15–24; TEMP 96.8–98.6; O2SAT 92–97
[2024-02-19] MEDS: VANCOMYCIN LEVEL IV ONE (23:58)
[2024-02-20] VITALS (8 sets, daily range): BP systolic 133–151; BP diastolic 70–94; PULSE 68–87; RESP 11–18; TEMP 98.2–98.8; O2SAT 96–98
[2024-02-20] MEDS ORDERED: nystatin 15 GM powder TP SCH (13:00)
== END 2024-02-20 12:20 | DRG 140 ==
LOC: ER 17:24 → ED HOLD 21:10 → PCU 3S 21:10 → UNDOADMIN 21:10 → PCU 3S 02-14 01:00 → ED HOLD 02-14 01:00 → PCU 3S 02-14 01:22 → UNDODISIN 02-20 12:20
PROVIDERS: ADMIT Internal Medicine Pulmonary Disease; ATTEND Internal Medicine
PROC: 5A09357 Assistance with Respiratory Ventilation, Less than 24 Consecutive Hours, Continuous Positive Airway Pressure (ICD-10-PCS; principal; 2024-02-13)
DX: J44.1 Chronic obstructive pulmonary disease with (acute) exacerbation (principal); J96.01 Acute respiratory failure with hypoxia; J15.212 Pneumonia due to Methicillin resistant Staphylococcus aureus; E44.0 Moderate protein-calorie malnutrition; E87.4 Mixed disorder of acid-base balance; E88.09 Other disorders of plasma-protein metabolism, not elsewhere classified; D63.8 Anemia in other chronic diseases classified elsewhere; J96.02 Acute respiratory failure with hypercapnia; Z68.1 Body mass index [BMI] 19.9 or less, adult; F41.9 Anxiety disorder, unspecified; F32.A Depression, unspecified; G47.00 Insomnia, unspecified
CPT/HCPCS: 36415; 71045; 80053; 80202; 81001; 82800; 83605; 83735; 83880; 84484; 85025; 85379; 85610; 85730; 87040; 87070; 87077; 87081; 87186; 93005; 93306; 94640; 94660; 94760; 97116; 97161; 97530; 99285; A4340; A4615; A4620; A6212; A6250; C1758; G0378; J0692; J1120; J1956; J2270; J2919; J3370; J7030; J7040; J7050

== ENCOUNTER 2024-04-11 19:10 | Inpatient (IN) | payer MEDICAID ==
[~2024-04-11] VITALS: Ht 177.8 cm; Wt 66.0 kg
[~2024-04-11 19:10] MED LIST changes: +ALBU2.5V10 INH; +AZIT-164 PO; -AZIT250T83 PO
[2024-04-11 20:11] LABS: BASOPHILS % (AUTO) 0.1 % (0-1); EOSINOPHILS % (AUTO) 0.2 % (0-6); HEMATOCRIT 31.9 % (42.0-52.0); HEMOGLOBIN 10.4 g/dl (14.0-17.9); LYMPHOCYTES # (AUTO) 1.6 X10'3 (1.1-4.8); LYMPHOCYTES % (AUTO) 17.9 % (21-51); MEAN CORPUSCULAR HEMOGLOBIN 28.7 PG (27.0-31.0); MEAN CORPUSCULAR HGB CONC 32.8 g/dL (33.0-36.5); MEAN CORPUSCULAR VOLUME 87.5 FL (78-98); MEAN PLATELET VOLUME 7.7 FL (7.4-10.4); MONOCYTES # (AUTO) 0.5 X10'3 (0-0.9); MONOCYTES % (AUTO) 5.1 % (2-12); NEUTROPHILS # (AUTO) 6.9 X10'3 (1.8-7.7); NEUTROPHILS % (AUTO) 76.7 % (42-75); PLATELET COUNT 296 X10'3 (140-440); RED BLOOD COUNT 3.64 X10'6 (4.70-6.10); RED CELL DISTRIBUTION WIDTH 18.7 % (11.5-14.5)
[2024-04-11 20:31] LABS: ANISOCYTOSIS 1+; MICROCYTOSIS 1+; PLATELET ESTIMATE NORMAL; POIKILOCYTOSIS 1+; SCHISTOCYTES 1+; STOMATOCYTES 2+
[2024-04-11 20:36] LABS: ALANINE AMINOTRANSFERASE 15 U/L (12-78); ALBUMIN 2.5 G/DL (3.4-5.0); ALBUMIN/GLOBULIN RATIO 0.5 (1.1-1.5); ALKALINE PHOSPHATASE 72 IU/L (46-116); ANION GAP -1 (8-16); ASPARTATE AMINO TRANSFERASE 9 U/L (10-37); BILIRUBIN,TOTAL 0.2 MG/DL (0.1-1.0); BLOOD UREA NITROGEN 17 MG/DL (7-18); CALCIUM 8.7 MG/DL (8.5-10.1); CHLORIDE 101 MMOL/L (99-107); CREATININE 0.74 MG/DL (0.60-1.10); GLUCOSE 126 MG/DL (70-104); POTASSIUM 4.1 MMOL/L (3.5-5.1); PRO BRAIN NATRIURETIC PEPTIDE 76 PG/ML (0-125); SODIUM 143 MMOL/L (135-145); TOTAL PROTEIN 7.1 G/DL (6.4-8.2); eGFR > 90 ML/MIN
[2024-04-11 20:45] LABS: TOTAL CARBON DIOXIDE 42.9 MMOL/L (24-32)
[2024-04-11] MEDS: albuterol 2.5 MG/3 ML nebule NEB ONE (20:53)
[2024-04-11 20:54] VITALS: PULSE 87; RESP 16; O2SAT 96
[2024-04-11] MEDS ORDERED: vancomycin/NS 1 GM ADD-VANTAGE 250 ML IV ONE (20:55)
[2024-04-11 21:01] VITALS: PULSE 84; RESP 14
[2024-04-11] MEDS: piperacillin/tazo 3.375gm/50ml 50 ML IV ONE (21:05)
[2024-04-11] MEDS: VANCOMYCIN 1GM 200ML H20 (PEG) 200 ML IV ONE (21:14)
[2024-04-11] MEDS ORDERED: amLODIPine 5mg tablet PO ONE (21:30)
[2024-04-11] MEDS ORDERED: TETanus/Pertussis (Acell)/Diphther VAC/PF (Tdap-Adult) 0.5ml syringe IMVAC ONE (21:30)
[2024-04-11] MEDS ORDERED: cephalexin 250mg capsule PO ONE (21:30)
[2024-04-11] MEDS ORDERED: hyDRALAzine 10mg tablet PO ONE (21:30)
[2024-04-11] MEDS ORDERED: LIDOcaine 1% W/epiNEPHrine 1:100,000 20ml vial IJ ONE (21:35)
[2024-04-11] MEDS ORDERED: magnesium Cl slow-release 64mg tablet PO PRN (22:30)
[2024-04-11] MEDS ORDERED: mag hydrox/Alum hydrox/simeth 30ml oral suspension PO PRN (22:30)
[2024-04-11] MEDS ORDERED: acetaminophen 325mg tablet PO PRN (22:30)
[2024-04-11] MEDS ORDERED: magnesium hydroxide 30ml (MOM) UD suspension PO PRN (22:30)
[2024-04-11] MEDS ORDERED: magnesium sulf-water 2g/50mL 50 ML IV PRN (22:30)
[2024-04-11] MEDS ORDERED: magnesium sulf-water 4G/100mL 100 ML IV PRN (22:30)
[2024-04-11] MEDS ORDERED: potassium Cl 40MEQ/1/2NS 520ml 520 ML IV PRN (22:30)
[2024-04-11] MEDS ORDERED: ondansetron/PF 4mg/2ml inj IV PRN (22:30)
[2024-04-11] MEDS ORDERED: potassium Cl 20 mEq SR tablet PO PRN ×2 (22:30)
[2024-04-11 23:44] VITALS: PULSE 88; RESP 14; O2SAT 90
[2024-04-12] VITALS (11 sets, daily range): BP systolic 111–134; BP diastolic 71–90; PULSE 75–112; RESP 12–25; TEMP 97.6–98.6; O2SAT 90–98
[2024-04-12 02:55] LABS: BASOPHILS % (AUTO) 0.3 % (0-1); EOSINOPHILS # (AUTO) 0.2 X10'3 (0-0.9); EOSINOPHILS % (AUTO) 2.5 % (0-6); HEMATOCRIT 30.6 % (42.0-52.0); HEMOGLOBIN 9.9 g/dl (14.0-17.9); LYMPHOCYTES # (AUTO) 2.2 X10'3 (1.1-4.8); MEAN CORPUSCULAR HEMOGLOBIN 28.6 PG (27.0-31.0); MEAN CORPUSCULAR HGB CONC 32.3 g/dL (33.0-36.5); MEAN CORPUSCULAR VOLUME 88.6 FL (78-98); MONOCYTES # (AUTO) 0.7 X10'3 (0-0.9); MONOCYTES % (AUTO) 8.2 % (2-12); NEUTROPHILS # (AUTO) 5.3 X10'3 (1.8-7.7); PLATELET COUNT 318 X10'3 (140-440); RED BLOOD COUNT 3.46 X10'6 (4.70-6.10); RED CELL DISTRIBUTION WIDTH 18.2 % (11.5-14.5); WHITE BLOOD COUNT 8.5 X10'3 (4.5-11.0)
[2024-04-12 03:20] LABS: ALANINE AMINOTRANSFERASE 15 U/L (12-78); ALBUMIN 2.3 G/DL (3.4-5.0); ALBUMIN/GLOBULIN RATIO 0.5 (1.1-1.5); ALKALINE PHOSPHATASE 67 IU/L (46-116); ANION GAP -1 (8-16); ASPARTATE AMINO TRANSFERASE 15 U/L (10-37); BILIRUBIN,TOTAL 0.1 MG/DL (0.1-1.0); BLOOD UREA NITROGEN 19 MG/DL (7-18); CALCIUM 8.5 MG/DL (8.5-10.1); CHLORIDE 103 MMOL/L (99-107); CREATININE 0.76 MG/DL (0.60-1.10); GLUCOSE 82 MG/DL (70-104); MAGNESIUM 2.2 MG/DL (1.5-2.4); POTASSIUM 4.3 MMOL/L (3.5-5.1); SODIUM 145 MMOL/L (135-145); TOTAL PROTEIN 6.8 G/DL (6.4-8.2); eCRCL 115 ML/MIN; eGFR > 90 ML/MIN
[2024-04-12 03:22] LABS: TOTAL CARBON DIOXIDE 42.8 MMOL/L (24-32)
[2024-04-12 03:51] LABS: BILIRUBIN,URINE NEGATIVE (Neg); CLARITY,URINE CLEAR (Clear); COLOR,URINE YELLOW (Yellow); GLUCOSE, URINE NEGATIVE (Neg); KETONES,URINE NEGATIVE (Neg); LEUKOCYTE ESTERASE ,URINE NEGATIVE (Neg); NITRITES, URINE NEGATIVE (Neg); OCCULT BLOOD,URINE SMALL (Neg); PROTEIN,URINE 30 mg/dl (Neg); UROBILINOGEN,URINE 0.2 E.U/dL (0.2-1.0)
[2024-04-12 03:56] LABS: UA COLLECTION TYPE CLN CATCH MIDSTREAM
[2024-04-12 03:57] LABS: BACTERIA,URINE NONE SEEN /HPF (Neg); WBC,URINE NONE SEEN /HPF (0-4)
[2024-04-12 03:58] LABS: MUCUS STRANDS NONE SEEN /LPF (Neg); SQUAMOUS EPITHELIAL CELL,UR NONE SEEN /LPF (FEW)
[2024-04-12 04:33] LABS: ABG BASE EXCESS 13.8 mmol/L (-2.0-3.0); ABG OXYGEN SATURATION 96.9 % (94.0-98.0); ABG PCO2 (T) 59.4 mmHg (35.0-48.0); ABG PH (T) 7.446 (7.350-7.450); ABG PO2 (T) 86.5 mmHg (83.0-108.0); ALLEN'S TEST Modified; FCOHb 0.2 % (0.5-1.5); FHHb 3.1 % (0.0-5.0); FMetHb 0.3 % (0.0-1.5); FO2Hb 96.4 % (94.0-98.0); MODE BIPAP; PATIENT TEMPERATURE 37.1; RESPIRATORY RATE 10 b/min
[2024-04-12] MEDS: docusate sod 100mg capsule PO SCH (08:00)
[2024-04-12] MEDS: K and/or MAG REPLACEMENT MC SCH (08:52)
[2024-04-12] MEDS: VANCOMYCIN/H2O 1.25G/250mL PB 250 ML IV SCH (08:55)
[2024-04-12] MEDS ORDERED: AMLO2.5T2 PO (11:46)
[2024-04-12] MEDS ORDERED: BENZ0.5T52 PO (12:42)
[2024-04-12] MEDS ORDERED: [UNRECOGNIZED DRUG - CODE] PO (12:42)
[2024-04-12] MEDS ORDERED: BUSP10TA11 PO (12:42)
[2024-04-12] MEDS ORDERED: APIX5TAB5 PO (12:42)
[2024-04-12] MEDS ORDERED: DOCU100C40 PO (13:11)
[2024-04-12] MEDS ORDERED: [UNRECOGNIZED DRUG - CODE] PO (13:11)
[2024-04-12] MEDS ORDERED: GUAI-425 PO (13:11)
[2024-04-12] MEDS ORDERED: MOME13HF11 INH (13:11)
[2024-04-12] MEDS ORDERED: MUPI15CR12 (13:11)
[2024-04-12] MEDS ORDERED: ETHA400T30 PO (13:11)
[2024-04-12] MEDS ORDERED: RISP0.253 PO (13:11)
[2024-04-12] MEDS ORDERED: PANT-47 PO (13:11)
[2024-04-12] MEDS ORDERED: ALB0.5UD NEB (13:11)
[2024-04-12] MEDS ORDERED: POLY17PO10 PO ×2 (13:11)
[2024-04-12] MEDS ORDERED: PRED1TAB PO (13:11)
[2024-04-12] MEDS ORDERED: ETHA100T12 PO (13:11)
[2024-04-12] MEDS ORDERED: albuterol 2.5 MG/3 ML nebule NEB PRN (14:55)
[2024-04-12] MEDS: ipratropium/albuterol 3ml nebule NEB SCH (15:52)
[2024-04-12] MEDS: enoxaparin 40mg/0.4ml syringe SQ SCH (20:00)
[2024-04-12] MEDS: Mometasone/Formoterol (Dulera 200 Mcg/5 Mcg Inhaler) IH SCH (20:00)
[2024-04-12] MEDS: apixaban 5mg tablet PO SCH (21:13)
[2024-04-12] MEDS: risperiDONE 0.5mg tablet PO SCH (21:14)
[2024-04-12] MEDS: guaiFENesin ER 600mg tablet PO SCH (21:14)
[2024-04-12] MEDS: traZODone 50mg tablet PO SCH (21:18)
[2024-04-13] VITALS (18 sets, daily range): BP systolic 109–142; BP diastolic 76–93; PULSE 76–110; RESP 10–19; TEMP 97.3–98.2; O2SAT 90–96
[2024-04-13 07:36] LABS: BASOPHILS % (AUTO) 0.3 % (0-1); EOSINOPHILS # (AUTO) 0.3 X10'3 (0-0.9); EOSINOPHILS % (AUTO) 3.9 % (0-6); HEMATOCRIT 33.1 % (42.0-52.0); HEMOGLOBIN 10.5 g/dl (14.0-17.9); LYMPHOCYTES # (AUTO) 1.9 X10'3 (1.1-4.8); LYMPHOCYTES % (AUTO) 27.6 % (21-51); MEAN CORPUSCULAR HGB CONC 31.9 g/dL (33.0-36.5); MEAN CORPUSCULAR VOLUME 87.9 FL (78-98); MEAN PLATELET VOLUME 7.6 FL (7.4-10.4); MONOCYTES # (AUTO) 0.5 X10'3 (0-0.9); MONOCYTES % (AUTO) 6.9 % (2-12); NEUTROPHILS # (AUTO) 4.3 X10'3 (1.8-7.7); NEUTROPHILS % (AUTO) 61.3 % (42-75); PLATELET COUNT 362 X10'3 (140-440); RED BLOOD COUNT 3.76 X10'6 (4.70-6.10); RED CELL DISTRIBUTION WIDTH 18.2 % (11.5-14.5); WHITE BLOOD COUNT 6.9 X10'3 (4.5-11.0)
[2024-04-13 07:49] LABS: ALANINE AMINOTRANSFERASE 18 U/L (12-78); ALBUMIN 2.4 G/DL (3.4-5.0); ALBUMIN/GLOBULIN RATIO 0.5 (1.1-1.5); ALKALINE PHOSPHATASE 66 IU/L (46-116); ANION GAP 1 (8-16); ASPARTATE AMINO TRANSFERASE 9 U/L (10-37); BILIRUBIN,TOTAL 0.3 MG/DL (0.1-1.0); BLOOD UREA NITROGEN 22 MG/DL (7-18); BUN/CREATININE RATIO 31.9 (10.0-20.0); CALCIUM 8.5 MG/DL (8.5-10.1); CHLORIDE 103 MMOL/L (99-107); CREATININE 0.69 MG/DL (0.60-1.10); GLUCOSE 83 MG/DL (70-104); POTASSIUM 4.1 MMOL/L (3.5-5.1); SODIUM 145 MMOL/L (135-145); TOTAL PROTEIN 7.1 G/DL (6.4-8.2); eCRCL 126 ML/MIN; eGFR > 90 ML/MIN
[2024-04-13 07:56] LABS: TOTAL CARBON DIOXIDE 41.4 MMOL/L (24-32)
[2024-04-13] MEDS ORDERED: ETHAMBUTOL 100 MG PO SCH (08:00)
[2024-04-13] MEDS: ethambutol 400mg tablet PO SCH (08:05)
[2024-04-13] MEDS: amLODIPine 5mg tablet PO SCH (08:07)
[2024-04-13] MEDS: benztropine 1mg tablet PO SCH (08:07)
[2024-04-13] MEDS: buPROPion 75mg tablet PO SCH (08:08)
[2024-04-13] MEDS: predniSONE 20 mg tablet PO SCH (08:08)
[2024-04-13] MEDS: azithromycin 250mg tablet PO SCH (08:08)
[2024-04-13] MEDS: ESCITALOPRAM 10 mg tablet 10 MG TABLET PO SCH (08:09)
[2024-04-13] MEDS: VANCOMYCIN LEVEL IV ONE (19:11)
[2024-04-14] VITALS (9 sets, daily range): BP systolic 88–138; BP diastolic 55–94; PULSE 68–111; RESP 15–18; TEMP 97.5–98; O2SAT 93–97
[2024-04-14 07:13] LABS: BASOPHILS % (AUTO) 0.6 % (0-1); EOSINOPHILS # (AUTO) 0.3 X10'3 (0-0.9); EOSINOPHILS % (AUTO) 3.7 % (0-6); HEMATOCRIT 33.1 % (42.0-52.0); HEMOGLOBIN 10.7 g/dl (14.0-17.9); LYMPHOCYTES % (AUTO) 27.5 % (21-51); MEAN CORPUSCULAR HEMOGLOBIN 28.1 PG (27.0-31.0); MEAN CORPUSCULAR HGB CONC 32.4 g/dL (33.0-36.5); MEAN CORPUSCULAR VOLUME 86.9 FL (78-98); MEAN PLATELET VOLUME 7.5 FL (7.4-10.4); MONOCYTES # (AUTO) 0.5 X10'3 (0-0.9); MONOCYTES % (AUTO) 7.5 % (2-12); NEUTROPHILS # (AUTO) 4.4 X10'3 (1.8-7.7); NEUTROPHILS % (AUTO) 60.7 % (42-75); PLATELET COUNT 389 X10'3 (140-440); RED BLOOD COUNT 3.81 X10'6 (4.70-6.10); RED CELL DISTRIBUTION WIDTH 18.1 % (11.5-14.5); WHITE BLOOD COUNT 7.2 X10'3 (4.5-11.0)
[2024-04-14 07:37] LABS: ALANINE AMINOTRANSFERASE 15 U/L (12-78); ALBUMIN 2.5 G/DL (3.4-5.0); ALBUMIN/GLOBULIN RATIO 0.5 (1.1-1.5); ALKALINE PHOSPHATASE 96 IU/L (46-116); ANION GAP -1 (8-16); ASPARTATE AMINO TRANSFERASE 12 U/L (10-37); BILIRUBIN,TOTAL 0.3 MG/DL (0.1-1.0); BLOOD UREA NITROGEN 18 MG/DL (7-18); BUN/CREATININE RATIO 26.1 (10.0-20.0); CALCIUM 8.7 MG/DL (8.5-10.1); CHLORIDE 104 MMOL/L (99-107); CREATININE 0.69 MG/DL (0.60-1.10); GLUCOSE 86 MG/DL (70-104); MAGNESIUM 2.1 MG/DL (1.5-2.4); POTASSIUM 4.4 MMOL/L (3.5-5.1); SODIUM 144 MMOL/L (135-145); TOTAL PROTEIN 7.6 G/DL (6.4-8.2); eCRCL 126 ML/MIN; eGFR > 90 ML/MIN
[2024-04-14 07:47] LABS: TOTAL CARBON DIOXIDE 40.8 MMOL/L (24-32)
[2024-04-14] MEDS: prednisone 10mg tablet PO SCH (07:50)
== END 2024-04-14 16:00 | DRG 133 ==
LOC: ER 19:11 → ED HOLD 21:54 → UNDOADMIN 21:54 → ED HOLD 23:11 → ORTHO 4S 04-12 14:00 → PCU 3S 04-12 22:25
PROVIDERS: ADMIT Internal Medicine Critical Care Medicine; ATTEND Internal Medicine
DX: J96.21 Acute and chronic respiratory failure with hypoxia (principal); J69.0 Pneumonitis due to inhalation of food and vomit; J96.22 Acute and chronic respiratory failure with hypercapnia; E87.3 Alkalosis; Z20.822 Contact with and (suspected) exposure to COVID-19; J44.89 Other specified chronic obstructive pulmonary disease; Z86.14 Personal history of Methicillin resistant Staphylococcus aureus infection; Z79.01 Long term (current) use of anticoagulants; Z79.899 Other long term (current) drug therapy
CPT/HCPCS: 36415; 36600; 71045; 80053; 80202; 81001; 82803; 83605; 83735; 83880; 84145; 84484; 85008; 85018; 85025; 87040; 87081; 87502; 87503; 87811; 92508; 92616; 93005; 94640; 94660; 94760; 96365; 97116; 97161; 97530; 99285; G0378; J2543; J3372; J7512

== ENCOUNTER 2024-05-08 18:01 | Inpatient (IN) | payer MEDICAID ==
[~2024-05-08] VITALS: Ht 175.3 cm; Wt 66.8 kg
[~2024-05-08 18:01] MED LIST changes: -ALB0.5UD IH; +ALB0.5UD NEB; -ALBU18HF2 INH; -ALBU2.5V10 INH; +AMLO2.5T2 PO; -APIX5TAB3 PO; +APIX5TAB5 PO; -BACI28.42 TOP; +BENZ0.5T52 PO; -BENZ1TAB78 PO; -BUPR-297 PO; +BUSP10TA11 PO; -CHOL100012 PO; +DOCU100C40 PO; +ETHA100T12 PO; +ETHA400T30 PO; +GUAI-425 PO; -GUAI200T5 PO; +MUPI15CR12; +PANT-47 PO; -PANT40TA54 PO; +POLY17PO10 PO; -PRED10TA23 PO; +PRED1TAB PO; +RISP0.253 PO; -RISP0.5T74 PO; +[UNRECOGNIZED DRUG - CODE] PO; +[UNRECOGNIZED DRUG - CODE] PO; -[UNRECOGNIZED DRUG - CODE] PO
[2024-05-08 19:12] LABS: BASOPHILS % (AUTO) 0.2 % (0-1); EOSINOPHILS # (AUTO) 0.1 X10'3 (0-0.9); EOSINOPHILS % (AUTO) 0.5 % (0-6); HEMOGLOBIN 10.4 g/dl (14.0-17.9); LYMPHOCYTES # (AUTO) 0.7 X10'3 (1.1-4.8); LYMPHOCYTES % (AUTO) 5.1 % (21-51); MEAN CORPUSCULAR HEMOGLOBIN 28.1 PG (27.0-31.0); MEAN CORPUSCULAR HGB CONC 32.4 g/dL (33.0-36.5); MEAN CORPUSCULAR VOLUME 86.6 FL (78-98); MEAN PLATELET VOLUME 7.4 FL (7.4-10.4); MONOCYTES # (AUTO) 0.8 X10'3 (0-0.9); MONOCYTES % (AUTO) 5.6 % (2-12); NEUTROPHILS # (AUTO) 12.7 X10'3 (1.8-7.7); NEUTROPHILS % (AUTO) 88.6 % (42-75); PLATELET COUNT 329 X10'3 (140-440); RED CELL DISTRIBUTION WIDTH 17.5 % (11.5-14.5); WHITE BLOOD COUNT 14.3 X10'3 (4.5-11.0)
[2024-05-08 19:35] LABS: ALANINE AMINOTRANSFERASE 18 U/L (12-78); ALBUMIN 2.8 G/DL (3.4-5.0); ALBUMIN/GLOBULIN RATIO 0.7 (1.1-1.5); ALKALINE PHOSPHATASE 71 IU/L (46-116); ASPARTATE AMINO TRANSFERASE 13 U/L (10-37); BILIRUBIN,TOTAL 0.2 MG/DL (0.1-1.0); CALCIUM 8.6 MG/DL (8.5-10.1); TOTAL CARBON DIOXIDE 37.3 MMOL/L (24-32); TOTAL PROTEIN 7.1 G/DL (6.4-8.2)
[2024-05-08 19:44] LABS: PRO BRAIN NATRIURETIC PEPTIDE 43 PG/ML (0-125)
[2024-05-08 19:45] LABS: ANION GAP 5 (8-16); BLOOD UREA NITROGEN 20 MG/DL (7-18); BUN/CREATININE RATIO 27.4 (10.0-20.0); CHLORIDE 101 MMOL/L (99-107); CREATININE 0.73 MG/DL (0.60-1.10); GLUCOSE 106 MG/DL (70-104); POTASSIUM 4.3 MMOL/L (3.5-5.1); SODIUM 143 MMOL/L (135-145); eCRCL 120 ML/MIN; eGFR > 90 ML/MIN
[2024-05-08] MEDS: normal saline 1000ml 1,000 ML IV ONE ×2 (21:17→21:58)
[2024-05-08] MEDS: azithromycin 250mg tablet PO ONE (21:38)
[2024-05-08] MEDS: CefTRIAXone 2gm/D5W 50ml BAG 50 ML IV ONE (21:42)
[2024-05-08] MEDS ORDERED: mag hydrox/Alum hydrox/simeth 30ml oral suspension PO PRN (23:10)
[2024-05-08] MEDS ORDERED: potassium Cl 20 mEq SR tablet PO PRN ×2 (23:10)
[2024-05-08] MEDS ORDERED: magnesium sulf-water 4G/100mL 100 ML IV PRN (23:10)
[2024-05-08] MEDS ORDERED: magnesium hydroxide 30ml (MOM) UD suspension PO PRN (23:10)
[2024-05-08] MEDS ORDERED: potassium Cl 40MEQ/1/2NS 520ml 520 ML IV PRN (23:10)
[2024-05-08] MEDS ORDERED: acetaminophen 325mg tablet PO PRN (23:10)
[2024-05-08] MEDS ORDERED: magnesium sulf-water 2g/50mL 50 ML IV PRN (23:10)
[2024-05-08] MEDS ORDERED: ondansetron/PF 4mg/2ml inj IV PRN (23:10)
[2024-05-08] MEDS ORDERED: magnesium Cl slow-release 64mg tablet PO PRN (23:10)
[2024-05-08] MEDS: normal saline 1000ml 1,000 ML IV SCH (23:10)
[2024-05-08 23:55] LABS: HEMOGLOBIN A1C 5.5 % (4.5-6.2)
[2024-05-09] VITALS (13 sets, daily range): BP systolic 104–134; BP diastolic 65–80; PULSE 76–99; RESP 17–23; TEMP 98.1–98.3; O2SAT 92–97
[2024-05-09] MEDS ORDERED: albuterol 2.5 MG/3 ML nebule NEB PRN ×2 (00:45→10:20)
[2024-05-09] MEDS ORDERED: ipratropium/albuterol 3ml nebule NEB PRN (00:45)
[2024-05-09 03:11] LABS: BASOPHILS % (AUTO) 0.1 % (0-1); EOSINOPHILS # (AUTO) 0.1 X10'3 (0-0.9); EOSINOPHILS % (AUTO) 0.3 % (0-6); HEMATOCRIT 30.5 % (42.0-52.0); HEMOGLOBIN 9.7 g/dl (14.0-17.9); LYMPHOCYTES # (AUTO) 1.7 X10'3 (1.1-4.8); LYMPHOCYTES % (AUTO) 6.1 % (21-51); MEAN CORPUSCULAR HEMOGLOBIN 27.5 PG (27.0-31.0); MEAN CORPUSCULAR HGB CONC 31.8 g/dL (33.0-36.5); MEAN CORPUSCULAR VOLUME 86.3 FL (78-98); MEAN PLATELET VOLUME 7.6 FL (7.4-10.4); MONOCYTES # (AUTO) 0.9 X10'3 (0-0.9); MONOCYTES % (AUTO) 3.2 % (2-12); NEUTROPHILS # (AUTO) 24.7 X10'3 (1.8-7.7); NEUTROPHILS % (AUTO) 90.3 % (42-75); PLATELET COUNT 293 X10'3 (140-440); RED BLOOD COUNT 3.54 X10'6 (4.70-6.10); RED CELL DISTRIBUTION WIDTH 17.1 % (11.5-14.5)
[2024-05-09 03:37] LABS: ALANINE AMINOTRANSFERASE 15 U/L (12-78); ALBUMIN 2.5 G/DL (3.4-5.0); ALBUMIN/GLOBULIN RATIO 0.6 (1.1-1.5); ALKALINE PHOSPHATASE 68 IU/L (46-116); ANION GAP 4 (8-16); ASPARTATE AMINO TRANSFERASE 8 U/L (10-37); BILIRUBIN,TOTAL 0.2 MG/DL (0.1-1.0); BLOOD UREA NITROGEN 15 MG/DL (7-18); BUN/CREATININE RATIO 24.6 (10.0-20.0); CALCIUM 8.5 MG/DL (8.5-10.1); CHLORIDE 105 MMOL/L (99-107); CHOL/HDL RATIO 2.8 (0.00-4.99); CHOLESTEROL 137 MG/DL (0-200); CREATININE 0.61 MG/DL (0.60-1.10); GLUCOSE 97 MG/DL (70-104); HDL CHOLESTEROL 49 MG/DL (35-60); LDL CHOLESTEROL 79 MG/DL (50-100); MAGNESIUM 1.8 MG/DL (1.5-2.4); SODIUM 145 MMOL/L (135-145); TOTAL CARBON DIOXIDE 36.4 MMOL/L (24-32); TOTAL PROTEIN 6.5 G/DL (6.4-8.2); TRIGLYCERIDES 24 MG/DL (20-135); eCRCL 143 ML/MIN; eGFR > 90 ML/MIN
[2024-05-09 03:41] LABS: WHITE BLOOD COUNT 27.3 X10'3 (4.5-11.0)
[2024-05-09 03:54] LABS: ANISOCYTOSIS 2+; MICROCYTOSIS 1+; PLATELET ESTIMATE NORMAL; TOTAL CELLS COUNTED 100
[2024-05-09] MEDS: VANCOMYCIN/H2O 1.5g/300mL PB 300 ML IV ONE (06:47)
[2024-05-09] MEDS: K and/or MAG REPLACEMENT MC SCH (08:00)
[2024-05-09] MEDS: docusate sod 100mg capsule PO SCH ×2 (09:40→19:57)
[2024-05-09] MEDS: ipratropium/albuterol 3ml nebule NEB SCH (11:30)
[2024-05-09] MEDS: methylPREDNISolone sod succ 125mg/2ml vial IV ONE (11:32)
[2024-05-09] MEDS ORDERED: ETHAMBUTOL 100 MG PO SCH (14:25)
[2024-05-09] MEDS ORDERED: polyethylene glycol 3350 17gm powd pack PO SCH (14:25)
[2024-05-09] MEDS: methylPREDNISolone sod succ 125mg/2ml vial IV SCH (15:24)
[2024-05-09] MEDS: pantoprazole 40mg Tablet.DR PO SCH (15:25)
[2024-05-09] MEDS: amLODIPine 5mg tablet PO SCH (15:25)
[2024-05-09] MEDS: azithromycin 250mg tablet PO SCH (15:25)
[2024-05-09] MEDS ORDERED: BUPR-297 PO (15:44)
[2024-05-09 15:52] LABS: BILIRUBIN,URINE NEGATIVE (Neg); CLARITY,URINE CLEAR (Clear); COLOR,URINE YELLOW (Yellow); GLUCOSE, URINE NEGATIVE (Neg); KETONES,URINE TRACE mg/dl (Neg); LEUKOCYTE ESTERASE ,URINE NEGATIVE (Neg); NITRITES, URINE NEGATIVE (Neg); OCCULT BLOOD,URINE MODERATE (Neg); PROTEIN,URINE TRACE mg/dl (Neg); UROBILINOGEN,URINE 0.2 E.U/dL (0.2-1.0)
[2024-05-09 15:58] LABS: URINE AMPHETAMINE SCREEN NEGATIVE (Neg); URINE BARBITUATE SCREEN NEGATIVE (Neg); URINE BENZODIAZEPINES SCREEN NEGATIVE (Neg); URINE CANNABINOID SCREEN NEGATIVE (Neg); URINE COCAINE SCREEN NEGATIVE (Neg); URINE METHADONE SCREEN NEGATIVE (Neg); URINE OPIATE SCREEN NEGATIVE (Neg); URINE PHENCYCLIDINE SCREEN NEGATIVE (Neg)
[2024-05-09 16:02] LABS: UA COLLECTION TYPE URINAL
[2024-05-09 16:04] LABS: BACTERIA,URINE NONE SEEN /HPF (Neg); MUCUS STRANDS NONE SEEN /LPF (Neg); SQUAMOUS EPITHELIAL CELL,UR NONE SEEN /LPF (FEW); WBC,URINE 0-4 /HPF (0-4)
[2024-05-09] MEDS: ethambutol 400mg tablet PO SCH (16:58)
[2024-05-09] MEDS: risperiDONE 0.5mg tablet PO SCH (19:57)
[2024-05-09] MEDS: VANCOMYCIN 1GM 200ML H20 (PEG) 200 ML IV SCH (19:57)
[2024-05-09] MEDS: apixaban 5mg tablet PO SCH (19:57)
[2024-05-09] MEDS: traZODone 50mg tablet PO SCH (19:58)
[2024-05-09] MEDS ORDERED: CefTRIAXone/D5W-Rocephin 1gm 50 ML IV SCH (20:00)
[2024-05-09] MEDS ORDERED: azithromycin 250mg tablet PO SCH (20:00)
[2024-05-09] MEDS ORDERED: [UNRECOGNIZED DRUG - OTHER] PO SCH (20:00)
[2024-05-09] MEDS: piperacillin/tazo 3.375gm/50ml 50 ML IV SCH (21:55)
[2024-05-09] MEDS: mupirocin 2% ointment 22GM TP SCH (22:02)
[2024-05-10] VITALS (10 sets, daily range): BP systolic 121–129; BP diastolic 78–81; PULSE 83–96; RESP 18–22; TEMP 97.8–98.5; O2SAT 90–96
[2024-05-10 05:53] LABS: BASOPHILS % (AUTO) 0 % (0-1); EOSINOPHILS % (AUTO) 0 % (0-6); HEMATOCRIT 32.3 % (42.0-52.0); HEMOGLOBIN 10.3 g/dl (14.0-17.9); LYMPHOCYTES % (AUTO) 7.1 % (21-51); MEAN CORPUSCULAR HEMOGLOBIN 27.6 PG (27.0-31.0); MEAN CORPUSCULAR VOLUME 86.4 FL (78-98); MEAN PLATELET VOLUME 8.1 FL (7.4-10.4); MONOCYTES # (AUTO) 0.1 X10'3 (0-0.9); MONOCYTES % (AUTO) 0.6 % (2-12); NEUTROPHILS # (AUTO) 13.4 X10'3 (1.8-7.7); NEUTROPHILS % (AUTO) 92.3 % (42-75); PLATELET COUNT 340 X10'3 (140-440); RED BLOOD COUNT 3.73 X10'6 (4.70-6.10); RED CELL DISTRIBUTION WIDTH 17.4 % (11.5-14.5); WHITE BLOOD COUNT 14.5 X10'3 (4.5-11.0)
[2024-05-10 06:22] LABS: ALANINE AMINOTRANSFERASE 16 U/L (12-78); ALBUMIN 2.6 G/DL (3.4-5.0); ALBUMIN/GLOBULIN RATIO 0.6 (1.1-1.5); ALKALINE PHOSPHATASE 73 IU/L (46-116); ANION GAP 1 (8-16); ASPARTATE AMINO TRANSFERASE 11 U/L (10-37); BILIRUBIN,TOTAL 0.2 MG/DL (0.1-1.0); BLOOD UREA NITROGEN 23 MG/DL (7-18); BUN/CREATININE RATIO 30.3 (10.0-20.0); CALCIUM 9.2 MG/DL (8.5-10.1); CHLORIDE 104 MMOL/L (99-107); CREATININE 0.76 MG/DL (0.60-1.10); GLUCOSE 124 MG/DL (70-104); MAGNESIUM 2.3 MG/DL (1.5-2.4); POTASSIUM 4.5 MMOL/L (3.5-5.1); SODIUM 143 MMOL/L (135-145); TOTAL CARBON DIOXIDE 37.7 MMOL/L (24-32); eCRCL 115 ML/MIN; eGFR > 90 ML/MIN
[2024-05-10] MEDS: vancomycin/NS 1 GM ADD-VANTAGE 250 ML IV SCH (07:44)
[2024-05-10] MEDS: benztropine 1mg tablet PO SCH (07:45)
[2024-05-10] MEDS: buPROPion 75mg tablet PO SCH (07:45)
[2024-05-10] MEDS: ESCITALOPRAM 10 mg tablet 10 MG TABLET PO SCH (07:46)
[2024-05-10] MEDS: cholecalciferol (vitamin D3) 1,000 unit (25mcg) tablet PO SCH (07:47)
[2024-05-10] MEDS ORDERED: BUSPIRONE PO SCH (08:00)
[2024-05-10] MEDS: piperacillin/tazo 4.5gm/100ml 100 ML IV SCH (16:00)
[2024-05-10] MEDS ORDERED: VANCOMYCIN LEVEL IV ONE (19:30)
== END 2024-05-10 17:19 | DRG 720 ==
LOC: ER 18:01 → ED HOLD 23:15 → EDBEDREQ 05-09 12:56 → SUR 3N 05-09 14:41
PROVIDERS: ADMIT Internal Medicine Critical Care Medicine; ATTEND Family Medicine
DX: A41.9 Sepsis, unspecified organism (principal); J96.01 Acute respiratory failure with hypoxia; J69.0 Pneumonitis due to inhalation of food and vomit; J18.9 Pneumonia, unspecified organism; Z99.81 Dependence on supplemental oxygen; Z20.822 Contact with and (suspected) exposure to COVID-19; J44.0 Chronic obstructive pulmonary disease with (acute) lower respiratory infection; Z79.01 Long term (current) use of anticoagulants; Z86.711 Personal history of pulmonary embolism; Z79.899 Other long term (current) drug therapy
CPT/HCPCS: 36415; 71045; 71250; 80053; 80061; 80305; 81001; 83036; 83605; 83735; 83880; 84145; 84484; 85007; 85025; 87040; 87070; 87081; 87502; 87503; 87811; 92508; 92616; 93005; 94640; 94760; 99285; A4615; A4620; G0378; J0696; J2543; J2919; J3370; J3372; J7030; J7040

== ENCOUNTER 2024-06-06 14:48 | Inpatient (IN) | payer MEDICAID, OTHER ==
[~2024-06-06] VITALS: Ht 179.1 cm; Wt 66.8 kg
[~2024-06-06 14:48] MED LIST changes: +BUPR-297 PO; -BUSP10TA11 PO
[2024-06-06 15:24] LABS: BASOPHILS % (AUTO) 0 % (0-1); EOSINOPHILS % (AUTO) 0.1 % (0-6); HEMATOCRIT 32.6 % (42.0-52.0); HEMOGLOBIN 10.3 g/dl (14.0-17.9); LYMPHOCYTES # (AUTO) 0.6 X10'3 (1.1-4.8); LYMPHOCYTES % (AUTO) 3.4 % (21-51); MEAN CORPUSCULAR HEMOGLOBIN 27.4 PG (27.0-31.0); MEAN CORPUSCULAR HGB CONC 31.6 g/dL (33.0-36.5); MEAN CORPUSCULAR VOLUME 86.5 FL (78-98); MEAN PLATELET VOLUME 7.9 FL (7.4-10.4); MONOCYTES # (AUTO) 0.7 X10'3 (0-0.9); MONOCYTES % (AUTO) 3.8 % (2-12); NEUTROPHILS # (AUTO) 16.4 X10'3 (1.8-7.7); NEUTROPHILS % (AUTO) 92.7 % (42-75); PLATELET COUNT 274 X10'3 (140-440); RED BLOOD COUNT 3.77 X10'6 (4.70-6.10); RED CELL DISTRIBUTION WIDTH 17.9 % (11.5-14.5); WHITE BLOOD COUNT 17.7 X10'3 (4.5-11.0)
[2024-06-06 15:40] LABS: ALANINE AMINOTRANSFERASE 28 U/L (12-78); ALBUMIN 2.7 G/DL (3.4-5.0); ALBUMIN/GLOBULIN RATIO 0.6 (1.1-1.5); ALKALINE PHOSPHATASE 67 IU/L (46-116); ANION GAP 2 (8-16); ASPARTATE AMINO TRANSFERASE 21 U/L (10-37); BILIRUBIN,TOTAL 0.3 MG/DL (0.1-1.0); BLOOD UREA NITROGEN 21 MG/DL (7-18); CALCIUM 8.1 MG/DL (8.5-10.1); CHLORIDE 101 MMOL/L (99-107); CREATININE 0.84 MG/DL (0.60-1.10); GLUCOSE 117 MG/DL (70-104); SODIUM 141 MMOL/L (135-145); TOTAL CARBON DIOXIDE 37.8 MMOL/L (24-32); TOTAL PROTEIN 7.3 G/DL (6.4-8.2); eCRCL 104 ML/MIN; eGFR > 90 ML/MIN
[2024-06-06 15:48] LABS: PRO BRAIN NATRIURETIC PEPTIDE 711 PG/ML (0-125)
[2024-06-06] MEDS ORDERED: metroNIDAZOLE-Flagyl 500mg/NS 100 ML IV STA (19:11)
[2024-06-06] MEDS ORDERED: magnesium sulf-water 2g/50mL 50 ML IV PRN (20:25)
[2024-06-06] MEDS ORDERED: magnesium sulf-water 4G/100mL 100 ML IV PRN (20:25)
[2024-06-06] MEDS ORDERED: ondansetron/PF 4mg/2ml inj IV PRN (20:25)
[2024-06-06] MEDS ORDERED: potassium Cl 20 mEq SR tablet PO PRN ×2 (20:25)
[2024-06-06] MEDS ORDERED: acetaminophen 325mg tablet PO PRN ×2 (20:25)
[2024-06-06] MEDS ORDERED: HYDROcodone/acetaminophen 5mg/325mg tablet PO PRN (20:25)
[2024-06-06] MEDS ORDERED: HYDROcodone/acetaminophen 10/325mg tab PO PRN (20:25)
[2024-06-06] MEDS ORDERED: magnesium Cl slow-release 64mg tablet PO PRN (20:25)
[2024-06-06] MEDS ORDERED: mag hydrox/Alum hydrox/simeth 30ml oral suspension PO PRN (20:25)
[2024-06-06] MEDS ORDERED: potassium Cl 40MEQ/1/2NS 520ml 520 ML IV PRN (20:25)
[2024-06-06] MEDS ORDERED: albuterol 2.5 MG/3 ML nebule NEB PRN (20:45)
[2024-06-06] MEDS ORDERED: ipratropium/albuterol 3ml nebule NEB SCH (20:45)
[2024-06-06] MEDS ORDERED: vancomycin/NS 1 GM ADD-VANTAGE 250 ML IV ONE (20:55)
[2024-06-06 21:13] LABS: D-DIMER 0.22 MG/L FEU (0-0.50)
[2024-06-06] MEDS: piperacillin/tazo 3.375gm/50ml 50 ML IV SCH (21:14)
[2024-06-06] MEDS: traZODone 50mg tablet PO SCH (21:14)
[2024-06-06] MEDS: methylPREDNISolone sod succ 125mg/2ml vial IV SCH (21:14)
[2024-06-06] MEDS: VANCOMYCIN/H2O 1.75g/350mL PB 350 ML IV ONE (21:15)
[2024-06-06 21:38] VITALS: PULSE 86; RESP 15; O2SAT 96
[2024-06-06] MEDS: ipratropium/albuterol 3ml nebule NEB SCH (21:38)
[2024-06-06 21:48] VITALS: PULSE 93; RESP 20
[2024-06-06 22:56] LABS: BILIRUBIN,URINE NEGATIVE (Neg); CLARITY,URINE CLEAR (Clear); COLOR,URINE YELLOW (Yellow); GLUCOSE, URINE NEGATIVE (Neg); KETONES,URINE NEGATIVE (Neg); LEUKOCYTE ESTERASE ,URINE NEGATIVE (Neg); NITRITES, URINE NEGATIVE (Neg); OCCULT BLOOD,URINE LARGE (Neg); PROTEIN,URINE 100 mg/dl (Neg); UROBILINOGEN,URINE 0.2 E.U/dL (0.2-1.0)
[2024-06-06 23:00] LABS: UA COLLECTION TYPE CLN CATCH MIDSTREAM
[2024-06-06 23:01] LABS: BACTERIA,URINE FEW /HPF (Neg); SQUAMOUS EPITHELIAL CELL,UR FEW /LPF (FEW); WBC,URINE 0-4 /HPF (0-4)
[2024-06-06] MEDS ORDERED: GUAI600T45 PO (23:12)
[2024-06-07] VITALS (16 sets, daily range): BP systolic 98–110; BP diastolic 57–70; PULSE 72–94; RESP 13–18; TEMP 97.8–98.3; O2SAT 91–96
[2024-06-07] MEDS: vancomycin/NS 1 GM ADD-VANTAGE 250 ML IV SCH (05:29)
[2024-06-07] MEDS: K and/or MAG REPLACEMENT MC SCH (08:00)
[2024-06-07] MEDS: risperiDONE 0.25mg tablet PO SCH (08:00)
[2024-06-07] MEDS: mupirocin 2% cream 15gm TP SCH (08:00)
[2024-06-07] MEDS ORDERED: ETHAMBUTOL 100 MG PO SCH (08:00)
[2024-06-07] MEDS ORDERED: enoxaparin 40mg/0.4ml syringe SUBCUT SCH (08:00)
[2024-06-07 08:28] LABS: PROTHROMBIN TIME 10.9 SECONDS (9.0-12.0)
[2024-06-07 08:32] LABS: BASOPHILS % (AUTO) 0.1 % (0-1); EOSINOPHILS % (AUTO) 0 % (0-6); HEMATOCRIT 31.2 % (42.0-52.0); HEMOGLOBIN 9.7 g/dl (14.0-17.9); LYMPHOCYTES # (AUTO) 0.8 X10'3 (1.1-4.8); LYMPHOCYTES % (AUTO) 4.7 % (21-51); MEAN CORPUSCULAR HEMOGLOBIN 27.3 PG (27.0-31.0); MEAN CORPUSCULAR HGB CONC 31.1 g/dL (33.0-36.5); MEAN CORPUSCULAR VOLUME 87.7 FL (78-98); MONOCYTES # (AUTO) 0.3 X10'3 (0-0.9); MONOCYTES % (AUTO) 1.9 % (2-12); NEUTROPHILS # (AUTO) 15.4 X10'3 (1.8-7.7); NEUTROPHILS % (AUTO) 93.3 % (42-75); PLATELET COUNT 281 X10'3 (140-440); RED BLOOD COUNT 3.55 X10'6 (4.70-6.10); RED CELL DISTRIBUTION WIDTH 17.8 % (11.5-14.5); WHITE BLOOD COUNT 16.5 X10'3 (4.5-11.0)
[2024-06-07 08:42] LABS: ALLEN'S TEST MODIFIED; PATIENT TEMPERATURE 37.2
[2024-06-07 08:43] LABS: ABG PH (T) 7.362 (7.350-7.450); MODE BIPAP
[2024-06-07 08:44] LABS: ABG BASE EXCESS 10.1 mmol/L (-2.0-3.0); ABG HCO3 37.5 mmol/L (21.0-28.0); ABG PCO2 (T) 67.7 mmHg (35.0-48.0); FCOHb 0.3 % (0.5-1.5); FHHb 5.7 % (0.0-5.0); TOTAL HEMOGLOBIN 10.5 G/dl (13.5-17.5)
[2024-06-07 08:45] LABS: ABG OXYGEN SATURATION 94.3 % (94.0-98.0)
[2024-06-07] MEDS: guaiFENesin ER 600mg tablet PO SCH (08:58)
[2024-06-07] MEDS: amLODIPine 5mg tablet PO SCH (08:59)
[2024-06-07] MEDS: pantoprazole 40mg Tablet.DR PO SCH (08:59)
[2024-06-07] MEDS: ESCITALOPRAM 10 mg tablet 10 MG TABLET PO SCH (08:59)
[2024-06-07] MEDS: azithromycin 250mg tablet PO SCH (09:00)
[2024-06-07] MEDS: polyethylene glycol 3350 17gm powd pack PO SCH (09:00)
[2024-06-07] MEDS: apixaban 5mg tablet PO SCH (09:00)
[2024-06-07] MEDS: benztropine 1mg tablet PO SCH (09:00)
[2024-06-07 09:16] LABS: ALANINE AMINOTRANSFERASE 23 U/L (12-78); ALBUMIN 2.3 G/DL (3.4-5.0); ALBUMIN/GLOBULIN RATIO 0.5 (1.1-1.5); ALKALINE PHOSPHATASE 64 IU/L (46-116); ANION GAP 2 (8-16); ASPARTATE AMINO TRANSFERASE 12 U/L (10-37); BILIRUBIN,TOTAL 0.2 MG/DL (0.1-1.0); BLOOD UREA NITROGEN 23 MG/DL (7-18); BUN/CREATININE RATIO 29.5 (10.0-20.0); CALCIUM 8.8 MG/DL (8.5-10.1); CHLORIDE 103 MMOL/L (99-107); CREATININE 0.78 MG/DL (0.60-1.10); GLUCOSE 141 MG/DL (70-104); MAGNESIUM 2.5 MG/DL (1.5-2.4); PHOSPHORUS 5.2 MG/DL (2.3-4.5); POTASSIUM 4.4 MMOL/L (3.5-5.1); SODIUM 141 MMOL/L (135-145); TOTAL CARBON DIOXIDE 36.4 MMOL/L (24-32); TOTAL PROTEIN 6.9 G/DL (6.4-8.2); eCRCL 112 ML/MIN; eGFR > 90 ML/MIN
[2024-06-07] MEDS: ethambutol 400mg tablet PO SCH (11:51)
[2024-06-07] MEDS: buPROPion 75mg tablet PO SCH (11:52)
[2024-06-07] MEDS: VANCOMYCIN/WATER FOR INJ (PEG) 1.25GM/250 ML IVPB IV SCH (17:18)
[2024-06-08] VITALS (12 sets, daily range): BP systolic 103–136; BP diastolic 61–85; PULSE 75–95; RESP 11–18; TEMP 97.2–99; O2SAT 92–96
[2024-06-08 07:17] LABS: BASOPHILS % (AUTO) 0 % (0-1); EOSINOPHILS % (AUTO) 0 % (0-6); HEMATOCRIT 31.6 % (42.0-52.0); HEMOGLOBIN 9.9 g/dl (14.0-17.9); LYMPHOCYTES # (AUTO) 0.5 X10'3 (1.1-4.8); LYMPHOCYTES % (AUTO) 2.8 % (21-51); MEAN CORPUSCULAR HEMOGLOBIN 27.3 PG (27.0-31.0); MEAN CORPUSCULAR HGB CONC 31.3 g/dL (33.0-36.5); MEAN CORPUSCULAR VOLUME 87.3 FL (78-98); MEAN PLATELET VOLUME 8.6 FL (7.4-10.4); MONOCYTES # (AUTO) 0.4 X10'3 (0-0.9); MONOCYTES % (AUTO) 2.5 % (2-12); NEUTROPHILS # (AUTO) 15.7 X10'3 (1.8-7.7); NEUTROPHILS % (AUTO) 94.7 % (42-75); PLATELET COUNT 320 X10'3 (140-440); RED BLOOD COUNT 3.62 X10'6 (4.70-6.10); RED CELL DISTRIBUTION WIDTH 17.9 % (11.5-14.5); WHITE BLOOD COUNT 16.6 X10'3 (4.5-11.0)
[2024-06-08 08:00] LABS: ALANINE AMINOTRANSFERASE 21 U/L (12-78); ALBUMIN 2.3 G/DL (3.4-5.0); ALBUMIN/GLOBULIN RATIO 0.5 (1.1-1.5); ALKALINE PHOSPHATASE 69 IU/L (46-116); ANION GAP 4 (8-16); ASPARTATE AMINO TRANSFERASE 12 U/L (10-37); BILIRUBIN,TOTAL 0.2 MG/DL (0.1-1.0); BLOOD UREA NITROGEN 22 MG/DL (7-18); BUN/CREATININE RATIO 26.5 (10.0-20.0); CALCIUM 8.8 MG/DL (8.5-10.1); CHLORIDE 102 MMOL/L (99-107); CREATININE 0.83 MG/DL (0.60-1.10); GLUCOSE 156 MG/DL (70-104); MAGNESIUM 2.1 MG/DL (1.5-2.4); PHOSPHORUS 3.5 MG/DL (2.3-4.5); POTASSIUM 4.2 MMOL/L (3.5-5.1); SODIUM 142 MMOL/L (135-145); TOTAL CARBON DIOXIDE 35.8 MMOL/L (24-32); TOTAL PROTEIN 6.9 G/DL (6.4-8.2); eCRCL 105 ML/MIN; eGFR > 90 ML/MIN
[2024-06-08] MEDS: risperiDONE 0.5mg tablet PO SCH (21:01)
[2024-06-09] VITALS (9 sets, daily range): BP systolic 125–164; BP diastolic 79–96; PULSE 71–97; RESP 16–22; TEMP 97.3–97.6; O2SAT 96–98
[2024-06-09 04:20] LABS: BASOPHILS % (AUTO) 0.1 % (0-1); EOSINOPHILS % (AUTO) 0 % (0-6); HEMATOCRIT 30.2 % (42.0-52.0); HEMOGLOBIN 9.6 g/dl (14.0-17.9); LYMPHOCYTES # (AUTO) 0.9 X10'3 (1.1-4.8); LYMPHOCYTES % (AUTO) 5.3 % (21-51); MEAN CORPUSCULAR HEMOGLOBIN 27.2 PG (27.0-31.0); MEAN CORPUSCULAR HGB CONC 31.7 g/dL (33.0-36.5); MEAN CORPUSCULAR VOLUME 85.6 FL (78-98); MEAN PLATELET VOLUME 7.8 FL (7.4-10.4); MONOCYTES # (AUTO) 0.8 X10'3 (0-0.9); MONOCYTES % (AUTO) 4.4 % (2-12); NEUTROPHILS # (AUTO) 16.3 X10'3 (1.8-7.7); NEUTROPHILS % (AUTO) 90.2 % (42-75); PLATELET COUNT 321 X10'3 (140-440); RED BLOOD COUNT 3.52 X10'6 (4.70-6.10); RED CELL DISTRIBUTION WIDTH 18.4 % (11.5-14.5)
[2024-06-09 04:37] LABS: ALANINE AMINOTRANSFERASE 22 U/L (12-78); ALBUMIN 2.3 G/DL (3.4-5.0); ALBUMIN/GLOBULIN RATIO 0.6 (1.1-1.5); ALKALINE PHOSPHATASE 58 IU/L (46-116); ANION GAP -3 (8-16); ASPARTATE AMINO TRANSFERASE 7 U/L (10-37); BILIRUBIN,TOTAL 0.3 MG/DL (0.1-1.0); BLOOD UREA NITROGEN 24 MG/DL (7-18); BUN/CREATININE RATIO 34.3 (10.0-20.0); CALCIUM 8.8 MG/DL (8.5-10.1); CHLORIDE 107 MMOL/L (99-107); GLUCOSE 113 MG/DL (70-104); MAGNESIUM 1.9 MG/DL (1.5-2.4); PHOSPHORUS 3.8 MG/DL (2.3-4.5); POTASSIUM 4.3 MMOL/L (3.5-5.1); SODIUM 144 MMOL/L (135-145); TOTAL CARBON DIOXIDE 39.8 MMOL/L (24-32); TOTAL PROTEIN 6.4 G/DL (6.4-8.2); VANCOMYCIN,TROUGH 23.8 ug/mL (10.0-20.0); eCRCL 125 ML/MIN; eGFR > 90 ML/MIN
[2024-06-09] MEDS: VANCOMYCIN LEVEL IV ONE (04:38)
[2024-06-09] MEDS: predniSONE 20 mg tablet PO SCH (09:55)
[2024-06-09] MEDS ORDERED: PRED10TA23 PO (12:59)
[2024-06-09] MEDS ORDERED: AMOX-580 PO (12:59)
[2024-06-09] MEDS ORDERED: LACT1CAP26 PO (12:59)
[2024-06-09] MEDS ORDERED: vancomycin/NS 1 GM ADD-VANTAGE 250 ML IV SCH (17:00)
[2024-06-11] MEDS ORDERED: VANCOMYCIN LEVEL IV ONE (04:30)
== END 2024-06-09 20:30 | disposition home or self-care (01) | DRG 177 ==
LOC: ER 14:49 → ED HOLD 20:33 → PCU 3S 06-07 10:00
PROVIDERS: ADMIT Internal Medicine Pulmonary Disease; ATTEND Family Medicine
PROC: 5A09357 Assistance with Respiratory Ventilation, Less than 24 Consecutive Hours, Continuous Positive Airway Pressure (ICD-10-PCS; principal; 2024-06-07)
DX: J69.0 Pneumonitis due to inhalation of food and vomit (principal); J96.21 Acute and chronic respiratory failure with hypoxia; J44.0 Chronic obstructive pulmonary disease with (acute) lower respiratory infection; J44.1 Chronic obstructive pulmonary disease with (acute) exacerbation; Z20.822 Contact with and (suspected) exposure to COVID-19; J15.69 Pneumonia due to other Gram-negative bacteria; J15.9 Unspecified bacterial pneumonia; F41.9 Anxiety disorder, unspecified; F32.A Depression, unspecified; Z79.899 Other long term (current) drug therapy; Z86.711 Personal history of pulmonary embolism
CPT/HCPCS: 36415; 71045; 80053; 80202; 81001; 82803; 83605; 83735; 83880; 84100; 84145; 85018; 85025; 85379; 85610; 87040; 87081; 87502; 87503; 87811; 92508; 92616; 93005; 94640; 94660; 94760; 97116; 97161; 99285; A4615; A4620; G0378; J2543; J2919; J3370; J3372; J7030; J7512